=== PATIENT | female | born 1935 | race Caucasian/White ===

== ENCOUNTER → 2017-12-07 | Day surgery (SDC) | payer OTHER ==
[2017-12-04 13:20] LABS: BASOPHILS # (AUTO) 0.1 (0.0-0.1); BASOPHILS % 1.2 % (0.0-1.0); EOSINOPHILS # (AUTO) 0.2 (0.0-0.4); EOSINOPHILS % 2.2 % (0.0-6.0); HEMATOCRIT 35.8 % (34.2-44.1); HEMOGLOBIN 11.2 g/dL (12.0-16.0); LYMPHOCYTES % 24.3 % (18.0-39.1); MEAN CORPUSCULAR HGB CONC 31.3 g/dL (31-35); MEAN CORPUSCULAR VOLUME 89.5 fL (81-99); MONOCYTES # (AUTO) 1.2 (0.2-0.8); MONOCYTES % 14.4 % (4.4-11.3); NEUTROPHILS # (AUTO) 4.5 (2.1-6.9); NEUTROPHILS % 55.7 % (38.7-80.0); PLATELET COUNT 278 x10e3/uL (140-360); RED CELL DISTRIBUTION WIDTH 20.1 % (11.7-14.4)
[2017-12-04 13:38] LABS: ANION GAP 15.1 mmol/L (8-16); CALCIUM 9.3 mg/dL (8.4-10.2); CREATININE, SERUM 1.02 mg/dL (0.57-1.11); POTASSIUM 5.1 mmol/L (3.5-5.1)
--- NOTE | 2017-12-04 14:26 | Diagnostic Imaging Report ---
PROCEDURE: Frontal and lateral views of the chest. COMPARISON: 08/29/17 INDICATIONS: CHEST X-RAY FOR BREAST SURGERY FINDINGS: Lines/tubes: Stable right chest wall dual lead cardiac device in place. Lungs: The lungs are well inflated and clear. There is no evidence of pneumonia or pulmonary edema. Pleura: There is no pleural effusion or pneumothorax. Heart and mediastinum: The heart and the mediastinum are normal. Bones: Generalized demineralization. Exaggerated kyphosis of the thoracic spine. No acute bony abnormality. IMPRESSION: 1. No acute cardiopulmonary disease. Dictated by: Mendez Bean M.D. on 12/04/2017 at 14:35 Electronically approved by: Mendez Bean M.D. on 12/04/2017 at 14:35
[~2017-12-07] MED LIST: ALENDRONATE SOD10 MG PO; AMIODARONE HCL200 MG PO; ATENOLOL100 MG PO; BACITRACIN 50,000 UNIT VIAL ONE; CEFAZOLIN SOD 1 GM VIAL ONE; CEFUROXIME250 MG PO; DEXAMETHASONE SOD PHOS INJ 4 MG/ML VIAL ONE; ENALAPRIL MALEA20 MG PO; FENTANYL CITRATE/PF 100MCG/2 ML INJ ONE; FOSAMAX70 MG PO; GABAPENTIN100 MG; HYDRALAZINE HCL25 MG PO; LEFLUNOMIDE20 MG PO; LIDOCAINE HCL 2% LOCAL INJ 5 ML SDV VIAL INJ ONE; METOPROLOL SUCC50 MG PO; MORPHINE SULFATE 2 MG/ML SYR ONE; MUPIROCIN 2% OINT 22 GM TUBE ONE; ONDANSETRON HCL INJ 2 MG/ML VIAL ONE; OXYBUTYNIN CHLOR5 MG PO; PRADAXA75 MG PO; PRAVASTATIN SOD40 MG PO; PROPOFOL IV EMULSION 10 MG/ML 20 ML VIAL ONE; SEVOFLURANE INHAL SOLN 250 ML PEN BTL ONE; SYNTHROID75 MCG PO; TRIAMTERENE-HCTZ1 EA PO; VALACYCLOVIR500 MG PO; WARFARIN SODIUM5 MG PEG
--- NOTE | 2017-12-07 14:07 | Operative Report ---
DATE OF PROCEDURE: December 07, 2017 PREOPERATIVE DIAGNOSES: 1. Acquired absence of left breast. 2. Status post-removal left breast implant. POSTOPERATIVE DIAGNOSES: 1. Acquired absence of left breast. 1. Status post-removal left breast implant. PROCEDURE PERFORMED: 1. Open capsulectomy left breast. 2. Delayed insertion of breast prosthesis for reconstruction. 3. Allograft trunk. ANESTHESIA: General. HISTORY: The patient is an 82-year-old female who had augmentation for reconstructive purposes approximately 20 to 25 years ago. In 2017 she underwent placement of a permanent pacemaker by the cardiology service where the implant was accidently punctured. Subsequently the left chest became infected, and there is need to remove the implant that was punctured in an urgent fashion. The infection was resolved, and the patient now wishes to have definitive reconstructive procedures to achieve symmetry and restore the left breast. The risks, benefits and alternatives of treatment were discussed with the patient, and she has signed the [place] consent form. DETAILS OF PROCEDURE: Patient was marked preoperatively in the holding area. She was brought to the operating theater, and after the induction of adequate general anesthesia, she was prepped and draped in a supine position and a time out was performed. The procedure was begun by incising through the inframammary incision initially utilized to place the implants and also to remove the implant secondarily. The incision was made through the skin and subcutaneous tissues. Bleeding was controlled using electrocautery. There was a dense amount of scarring from both the previous surgeries as well as from the previous infection. In the subcutaneous space, the incision was deepened until the ribs were identified. Using the costal plane, the dissection continued cranially until the markedly attenuated and scarred pectoralis major muscle was identified. The scar tissue adhering the pectoralis major muscle to the chest wall was excised, and then the pectoralis major muscle was dissected on its anterior surface from the skin and subcutaneous tissue in order to allow it to be released and become mobile. Hemostasis was achieved with the electrocautery. Once the subpectoral space had been developed and the inferior and medial border and lateral border of the pectoralis major muscle identified, a trial of sizers was placed into the left chest. The left chest accepted a 325 mL sizer without significant tension on the soft tissues. The sizer was then removed, and the wound was irrigated with antibiotic-containing solution. The allograft dermis was prepared per management rep's specifications, and it was sutured to the inframammary fold using 2-0 PDS in an interrupted horizontal mattress fashion. Medially the allograft was sutured to the border of the pectoralis major muscle along the sternal edge. At this point, a 325 mL implant was prepared per management rep's specification. The lot number and serial number are located within the patient's chart. The implant was then placed in the subpectoral space, and the allograft was placed over the implant and care was taken to ensure that the implant resided as inferiorly and medially as possible. At this point, the superior border of the allograft was sutured to the inferior border of the pectoralis major muscle, also utilizing 2-0 PDS in an interrupted horizontal mattress fashion. Laterally the allograft was sutured to the lateral chest wall to prevent the implant from migrating laterally and cranially. This was also performed with 2-0 PDS sutures. At this point, a 15-Bulgar[place] Star-Ball drain was placed percutaneously through the axilla and sutured to the skin using 3-0 nylon suture. The skin was then approximated with 3-0 Monocryl in an interrupted buried fashion, followed by a 4-0 Monocryl running subcuticular stitch. Steri-Strips were applied to the incision. Sterile dressings were applied around the drain exit site as well as the incision. The patient tolerated the procedure well, and the estimated blood loss of the procedure was approximately 100 to 125 mL. She was returned to the recovery room in satisfactory condition and discharged with a postoperative instruction sheet as well as a followup appointment. Job#: [id number] ANDI
== END | disposition home or self-care (01) ==
LOC: OR 05:14
PROVIDERS: ATTEND Plastic Surgery
DX: Z90.12 Acquired absence of left breast and nipple (principal); E03.9 Hypothyroidism, unspecified; I10 Essential (primary) hypertension; I48.91 Unspecified atrial fibrillation; Z01.812 Encounter for preprocedural laboratory examination; Z01.818 Encounter for other preprocedural examination; Z95.0 Presence of cardiac pacemaker
CPT/HCPCS: 19342; 19371; 36415; 71046; 80048; 85025; C9358; J0690; J1100; J2001; J2270; J2405

== ENCOUNTER 2018-12-19 15:50 | Emergency (ER) | payer MEDICARE, OTHER ==
[~2018-12-19] VITALS: Ht 162.6 cm; Wt 50.3 kg
[~2018-12-19 15:50] MED LIST changes: -BACITRACIN 50,000 UNIT VIAL ONE; -CEFAZOLIN SOD 1 GM VIAL ONE; -DEXAMETHASONE SOD PHOS INJ 4 MG/ML VIAL ONE; -FENTANYL CITRATE/PF 100MCG/2 ML INJ ONE; -LIDOCAINE HCL 2% LOCAL INJ 5 ML SDV VIAL INJ ONE; -MORPHINE SULFATE 2 MG/ML SYR ONE; -MUPIROCIN 2% OINT 22 GM TUBE ONE; -ONDANSETRON HCL INJ 2 MG/ML VIAL ONE; -PROPOFOL IV EMULSION 10 MG/ML 20 ML VIAL ONE; -SEVOFLURANE INHAL SOLN 250 ML PEN BTL ONE
--- OUTSIDE RECORDS SUMMARY | 2018-12-19 15:54 | XMS REPORT ---
[facility] Address Unknown Phone Unavailable Care Team Providers Care Account Manager Employee Benefits Name Role Phone PAULINA BUITRAGO Unavailable Unavailable GERALDO PARIS Unavailable Unavailable Payers Payer Name Policy Type Policy Number Effective Date Expiration Date Problems This patient has no known problems. Allergies, Adverse Reactions, Alerts Allergy Name Allergy Type Status Severity Reaction(s) Onset Date Inactive Date Treating Clinician Comments No Known Allergies DA Active U 2018-10-17 00:00:00 No Known Allergies DA Active U 2018-01-05 00:00:00 Medications This patient has no known medications. Results Test Description Test Time Test Comments Text Results Atomic Results Result Comments CHEST 2 VIEWS [facility] [address] [address] Patient Name: JAN SANCHEZ MR #: [id number] : 1935 Age/Sex: 82/F Req #: [id number] Adm Physician: Ordered by: PAULINA BUITRAGO MD Report #: [id number] Location: OR Room/Bed: Procedure: [id number] DX/CHEST 2 VIEWS Exam Date: 12/04/17 Exam Time: 1320 REPORT STATUS: Signed PROCEDURE: Frontal and lateral views of the chest. COMPARISON: 08/29/17 INDICATIONS: CHEST X-RAY FOR BREAST SURGERY FINDINGS: Lines/tubes: Stable right chest wall dual lead cardiac device in place. Lungs: The lungs are well inflated and clear. There is no evidence of pneumonia or pulmonary edema. Pleura: There is no pleural effusion or pneumothorax. Heart and mediastinum: The heart and the mediastinum are normal. Bones: Generalized demineralization. Exaggerated kyphosis of the thoracic spine. No acute bony abnormality. IMPRESSION: 1. No acute cardiopulmonary disease. Dictated by: Mendez Vieira M.D. on 12/04/2017 at 14:35 Electronically approved by: Mendez Vieira M.D. on 12/04/2017 at 14:35 Dictated By: MENDEZ VIEIRA MD [employer] Signed By: MENDEZ VIEIRA MD on 12/04/17 1435 Transcribed By: ESTUARDO on 12/04/17 1435 COPY TO: PAULINA BUITRAGO MD CHEST XRAY LINE PLACEMENT [place] [address] Patient Name: JAN SANCHEZ MR #: [id number] : 1935 Age/Sex: 82/F Req #: [id number] Adm Physician: GERALDO PARIS MD Ordered by: DAYANARA ALVARENGA MD Report #: [id number] Location: MED/SURG3 Room/Bed: [facility] Procedure: [id number] DX/CHEST XRAY LINE PLACEMENT Exam Date: 08/29/17 Exam Time: 2200 REPORT STATUS: Signed CHEST XRAY LINE PLACEMENT, 08/29/2017 9:55 PM Technique: CHEST XRAY LINE PLACEMENT Comparison: None available. Clinical history: PICC line placement Findings: See Impression Impression: 1. Lines/Tubes: Left PICC terminates at the cavoatrial junction. Right chest wall dual-lead pacer with leads projecting over the right atrium and ventricle. 2. Borderline heart size. 3. Central vascular congestion without overt edema. 4. No pleural effusion or pneumothorax. Signed by: Dr Luís Lin MD on 08/29/2017 10:35 PM Dictated By: LUÍS LIN MD 34 Transcribed By: LINDY on 08/29/172234 COPY TO: DAYANARA ALVARENGA MD
--- OUTSIDE RECORDS SUMMARY | 2018-12-19 15:54 | XMS REPORT | Summary of Care ---
Author Author ROSANNA Demarco, STEVE Organization Unknown Address Unknown Phone Unavailable Care Team Providers Care Produce Production Team Member Name Role Phone WASHINGTON P.A., ELIZABETH Unavailable Unavailable ROSANNA Demarco, STEVE Unavailable Unavailable CARLENE Camacho, LUIGI Unavailable Unavailable ABBY D.O., DULCE-YENNI Unavailable Unavailable JAMAAL Camacho, TAMIE Unavailable Unavailable ABBY DO UT, DULCE-YENNI Unavailable Unavailable ASHLEE Camacho, MATTHEW Unavailable Unavailable Carlene BENAVIDES, Luigi Unavailable Unavailable JAMAAL BENAVIDES UT, TAMIE Unavailable Unavailable Unavailable Unavailable Functional Status Name Dates Details Functional status health issues are not documented Status: Name Dates Details Cognitive status health issues are not documented Status: Problems Name Dates Details 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, B00.9) Status: Active Transient organic psychotic condition, 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, 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 Arthritis (716.90, M19.90) Status: Active Fatigue (780.79, R53.83) Status: Active Colonoscopy (Fiberoptic) Screening Status: Active Influenza vaccine needed (V04.81, Z23) Status: Active Screening for malignant neoplasm of breast (V76.10, Z12.31) Status: Active Yeast infection involving the vagina and surrounding area (112.1, B37.3) Status: Active Increased frequency of urination (788.41, R35.0) Status: Active Viral syndrome (079.99, B34.9) Status: Active Constipation (564.00, K59.00) Status: Active Colon cancer screening (V76.51, Z12.11) Status: Active Bleeding external hemorrhoids (455.5, K64.4) Status: Active Advanced directives, counseling/discussion (V65.49, Z71.89) Status: Active Anemia (285.9, D64.9) Status: Active Back pain, sacroiliac (724.6, M53.3) Status: Active Vitamin B12 deficiency (266.2, E53.8) Status: Active Vitamin D deficiency (268.9, E55.9) Status: Active Need for pneumococcal vaccination (V03.82, Z23) Status: Active Acute upper respiratory infection (465.9, J06.9) Status: Active Vasovagal syncope (780.2, R55) Status: Active Syncope (780.2, R55) Status: Active Screening for osteoporosis (V82.81, Z13.820) Status: Active Pain, lower extremity (729.5, M79.606) Status: Active Cataract, bilateral (366.9, H26.9) Status: Active 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81, Z23) Status: Active Dysphagia (787.20, R13.10) Status: Active Pacemaker (V45.01, Z95.0) Status: Active Hyperlipidemia (272.4, E78.5) Status: Active GERD (gastroesophageal reflux disease) (530.81, K21.9) Status: Active Malignant neoplasm of esophagus (150.9, C15.9) Status: Active Fever and chills (780.60, R50.9) Status: Active Acute maxillary sinusitis, recurrence not specified (461.0, J01.00) Status: Active Urine frequency (788.41, R35.0) Status: Active Right hip pain (719.45, M25.551) Status: Active Skin lesion (709.9, L98.9) Status: Active Osteoporosis (733.00, M81.0) Status: Active Boil, buttock (680.5, L02.32) Status: Active 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 Active Multi-Vitamin Oral Tablet TAKE 2 TABLET DAILY * Refills: 0 Active Gabapentin 100 MG Oral Capsule TAKE 2 CAPSULE BEDTIME * Refills: 0 Active Pravastatin Sodium 40 MG Oral Tablet TAKE 1 TABLET BY MOUTH ONCE DAILY AT BEDTIME * Quantity: 90 Refills: 1 LUIGI CONCEPCION M.D. * Start : 29-Oct-2018 Active Triamterene-HCTZ 37.5-25 MG Oral Tablet TAKE 1 TABLET DAILY DIRECTED. * Refills: 0 Active Metoprolol Succinate ER 200 MG Oral Tablet Extended Release 24 Hour TAKE ONE TABLET BY MOUTH ONCE DAILY * Quantity: 90 Refills: 1 LUIGI CONCEPCION M.D. * Start : 20-Dec-2017 Active HydrALAZINE HCl - 50 MG Oral Tablet TAKE 1 TABLET BY MOUTH THREE TIMES DAILY * Quantity: 90 Refills: 5 LUIGI CONCEPCION M.D. * Start : 03-Dec-2018 Active Oxybutynin Chloride 5 MG Oral Tablet TAKE 1 TABLET BY MOUTH DAILY * Quantity: 30 Refills: 5 WAYNE MORA D.O. * Start : 01-Aug-2017 Active Warfarin Sodium 5 MG Oral Tablet TAKE 1 TABLET DAILY. * Quantity: 30 Refills: 0 LUIGI CONCEPCION M.D. * Start : 21-Mar-2018 Active Mupirocin Calcium 2 % External Cream APPLY THIN LAYER TO AFFECTED AREA(S) 3 TIMES DAILY. * Quantity: 1 Refills: 1 ELIZABETH FRAGOSO * Start : 16-Nov-2018 Active 30 GM Tube Omeprazole 40 MG Oral Capsule Delayed Release TAKE ONE CAPSULE BY MOUTH DAILY-DR Sargent * Quantity: 30 Refills: 0 TAMIE HINTON M.D. * Start : 23-Nov-2018 Active Famotidine 40 MG Oral Tablet TAKE 1 TABLET DAILY. * Refills: 0 * Start : 05-Dec-2018 Active Biotin 1000 MCG Oral Tablet TAKE 1 TABLET DAILY PRN * Refills: 0 * Start : 05-Dec-2018 Active Hydrocodone-Acetaminophen 10-325 MG Oral Tablet TAKE 1 TABLET EVERY 6 HOURS * Refills: 0 * Start : 05-Dec-2018 Active Allergies and Adverse Reactions Name Dates Details Eliquis TABS (Allergy) Onset: 10-Oct-2017 Reaction: Itching Status: Active Past Medical History Name Dates Details History of Advanced directives, counseling/discussion (V65.49, Z71.89) Status: Resolved History of 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, B00.9) Status: Resolved History of hypothyroidism (V12.29, Z86.39) Status: Resolved History of Multiparity (V61.5, Z64.1) Status: Resolved History of Osteoarthritis (V13.4) Status: Resolved History of Reported A Previous Heart Murmur Status: Resolved History of Rheumatoid arthritis with negative rheumatoid factor, involving unspecified site (714.0, M06.00) Status: Resolved 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, 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) Status: Resolved Personal history of urinary tract infection (V13.02, Z87.440) Status: Resolved Procedures Procedure Dates Details [QL] TSH, 3RD GENERATION Date: 28-Nov-2018 [QL] PROTHROMBIN TIME-INR Date: 05-Dec-2018 [QLH] PROTHROMBIN TIME-INR Date: 05-Dec-2018 History of Hysterectomy Completed History of Breast Surgery Mastectomy Completed History of Breast Reconstruction With Implant Prosthesis Immediate Completed Immunization Name Dates Details Fluarix Quadrivalent 0.5 ML SUSP Lot #: [id number] on: 13-Aug-2014 Fluzone Quadrivalent 0.5 ML Intramuscular Suspension Lot #: [id number] on: 02-Dec-2015 Fluzone Quadrivalent 0.5 ML Intramuscular Suspension Prefilled Syringe Lot #: [id number] on: 31-Aug-2016 DTaP on: 10-Nov-2016 Fluzone High-Dose 0.5 ML Intramuscular Suspension Prefilled Syringe Lot #: [id number] on: 16-Nov-2017 Fluzone Quadrivalent 0.5 ML Intramuscular Suspension Lot #: [id number] on: 14-Aug-2018 Influenza Comments: Approx 21Sep2013 Pneumococcal polysaccharide vaccine, 23 valent Comments: UNKNOWN DATE Family History Name Dates Details Family history of Hypertension (V17.49) Status: Active Family history of Alzheimer Disease Status: Active Family history of hyperlipidemia (V18.19, Z83.438) Status: Active Social History Name Dates Details - Status: Name Dates Details Never smoker Never smoker Vital Signs Date Test Result Details [id number] Physical Findings 8 Status: Comments: PHQ-9 Adult Depression Screening [id number] BP Systolic 107 mm[Hg] Status: Comments: Location: LUE; Position: Sitting BP Diastolic 58 mm[Hg] Status: Comments: Location: LUE; Position: Sitting Height 64 in Status: Weight 108 lb Status: Body Mass Index Calculated 18.54 kg/m2 Status: Body Surface Area Calculated 1.51 m2 Status: Temperature 98.9 f Status: Comments: Method: Temporal Respiration Rate 16 /min Status: Heart Rate 96 /min Status: Physical Findings 0 Status: Comments: Alcohol Screen - How many times in the past yr have you had 5 (for M) or 4 (for F) or 4 (for all > 65yrs) or more drinks in a day? [id number] BP Systolic 124 mm[Hg] Status: Comments: Location: LUE; Position: Sitting BP Diastolic 70 mm[Hg] Status: Comments: Location: LUE; Position: Sitting Height 64 in Status: Weight 115 lb Status: Body Mass Index Calculated 19.74 kg/m2 Status: Body Surface Area Calculated 1.55 m2 Status: Temperature 98.5 f Status: Comments: Method: Temporal Respiration Rate 16 /min Status: Heart Rate 80 /min Status: Results Date Description Value Details [id number] [QLH] PROTHROMBIN TIME-INR Comments: Reference Range 0.9-1.1Moderate-intensity Warfarin Therapy 2.0-3.0Higher-intensity Warfarin Therapy 3.0-4.0 REPORT COMMENT:FASTING:NO INR 1.0 (Normal) Comments: Reference Range 0.9-1.1Moderate-intensity Warfarin Therapy 2.0-3.0Higher-intensity Warfarin Therapy 3.0-4.0 PT 10.8 {sec} (Normal) Range: 9.0-11.5 Comments: For more information on this test, go to:http://education.[employer]/faq/SGK117 [id number] [[facility]] CMP W/EGFR GLUCOSE 114 mg/dl (Normal) Range: 65-139 Comments: Non-fasting reference interval UREA NITROGEN (BUN) 21 mg/dl (Normal) Range: 7-25 CREATININE 0.92 mg/dl (Above high threshold) Range: 0.60-0.88 Comments: For patients >49 years of age, the reference limitfor Creatinine is approximately 13% higher for peopleidentified as -Luxembourger. eGFR NON- 58 {ML/MIN/1.7} (Below low threshold) Range: > OR=60 eGFR 67 {ML/MIN/1.7} (Normal) Range: > OR=60 BUN/CREATININE RATIO 23 {CALC} (Above high threshold) Range: 6-22 SODIUM 141 mmol/L (Normal) Range: 135-146 POTASSIUM 4.2 mmol/L (Normal) Range: 3.5-5.3 CHLORIDE 102 mmol/L (Normal) Range: 98-110 CARBON DIOXIDE 30 mmol/L (Normal) Range: 20-32 CALCIUM 9.2 mg/dl (Normal) Range: 8.6-10.4 PROTEIN, TOTAL 6.0 g/dl (Below low threshold) Range: 6.1-8.1 ALBUMIN 3.8 g/dl (Normal) Range: 3.6-5.1 GLOBULIN 2.2 {G/DL__CALC} (Normal) Range: 1.9-3.7 ALBUMIN/GLOBULIN RATIO 1.7 {CALC} (Normal) Range: 1.0-2.5 BILIRUBIN, TOTAL 0.9 mg/dl (Normal) Range: 0.2-1.2 ALKALINE PHSPHATASE 63 u/l (Normal) Range: 33-130 AST 15 u/l (Normal) Range: 10-35 ALT 10 u/l (Normal) Range: 6-29 [id number] [[facility]] CBC (INCLUDES DIFF/PLT) WHITE BLOOD CELL COUNT 10.5 {Thousand/u} (Normal) Range: 3.8-10.8 RED BLOOD CELL COUNT 3.73 {Million/uL} (Below low threshold) Range: 3.80-5.10 HEMAGLOBIN 11.1 g/dl (Below low threshold) Range: 11.7-15.5 HEMATOCRIT 33.8 % (Below low threshold) Range: 35.0-45.0 MCV 90.6 fL (Normal) Range: 80.0-100.0 MCH 29.8 pg (Normal) Range: 27.0-33.0 MCHC 32.8 g/dl (Normal) Range: 32.0-36.0 RDW 16.9 % (Above high threshold) Range: 11.0-15.0 PLATELET COUNT 378 {Thousand/u} (Normal) Range: 140-400 MPV 9.9 fL (Normal) Range: 7.5-12.5 ABSOLUTE NEUTROPHILS 8432 {cells/uL} (Above high threshold) Range: 0404-3242 ABSOLUTE LYMPHOCYTES 861 {cells/uL} (Normal) Range: 850-3900 ABSOLUTE MONOCYTES 1061 {cells/uL} (Above high threshold) Range: 200-950 ABSOLUTE EOSINOPHILS 63 {cells/uL} (Normal) Range: 15-500 ABSOLUTE BASOPHILS 84 {cells/uL} (Normal) Range: 0-200 NEUTROPHILS 80.3 % (Normal) LYMPHOCYTES 8.2 % (Normal) MONOCYTES 10.1 % (Normal) EOSINOPHILS 0.6 % (Normal) BASOPHILS 0.8 % (Normal) COMMENT(S) Comments: Review of peripheral smear confirmsautomated results. [id number] [[facility]] TSH, 3RD GENERATION Comments: REPORT COMMENT:FASTING:NO TSH 3.23 {MIU/L} (Normal) Range: 0.40-4.50 [id number] [[facility]] PROTHROMBIN TIME-INR Comments: Reference Range 0.9-1.1Moderate-intensity Warfarin Therapy 2.0-3.0Higher-intensity Warfarin Therapy 3.0-4.0 REPORT COMMENT:FASTING:NO INR 1.1 (Normal) Comments: Reference Range 0.9-1.1Moderate-intensity Warfarin Therapy 2.0-3.0Higher-intensity Warfarin Therapy 3.0-4.0 PT 11.0 {sec} (Normal) Range: 9.0-11.5 Comments: For more information on this test, go to:http://[employer]/faq/AWF650 09-[id number]:35 [[facility]] PROTHROMBIN TIME-INR Comments: Reference Range 0.9-1.1Moderate-intensity Warfarin Therapy 2.0-3.0Higher-intensity Warfarin Therapy 3.0-4.0 INR 1.3 (Above high threshold) Comments: Reference Range 0.9-1.1Moderate-intensity Warfarin Therapy 2.0-3.0Higher-intensity Warfarin Therapy 3.0-4.0 PT 13.1 {sec} (Above high threshold) Range: 9.0-11.5 Comments: For more information on this test, go to:http://[email or web address]/faq/OMF990 [id number] [[facility]] PROTHROMBIN TIME-INR Comments: Reference Range 0.9-1.1Moderate-intensity Warfarin Therapy 2.0-3.0Higher-intensity Warfarin Therapy 3.0-4.0 INR 1.5 (Above high threshold) Comments: Reference Range 0.9-1.1Moderate-intensity Warfarin Therapy 2.0-3.0Higher-intensity Warfarin Therapy 3.0-4.0 PT 15.7 {sec} (Above high threshold) Range: 9.0-11.5 Comments: For more information on this test, go to:http://[employer]/faq/LNQ692 20-[id number]:57 [[facility]] PROTHROMBIN TIME-INR Comments: Reference Range 0.9-1.1Moderate-intensity Warfarin Therapy 2.0-3.0Higher-intensity Warfarin Therapy 3.0-4.0 REPORT COMMENT:FASTING:NO INR 1.7 (Above high threshold) Comments: Reference Range 0.9-1.1Moderate-intensity Warfarin Therapy 2.0-3.0Higher-intensity Warfarin Therapy 3.0-4.0 PT 16.7 {sec} (Above high threshold) Range: 9.0-11.5 Comments: For more information on this test, go to:http://[employer]/faq/EVF327 [id number] [O] Urine Dipstick (In Office) Glucose NORMAL (Normal) LEUKOCYTES TRACE NITRITE NEGATIVE (Normal) UROBILINOGEN NORMAL (Normal) PROTEIN TRACE pH 5 (Normal) URINE BLOOD NEGATIVE (Normal) SPECIFIC GRAVITY 1.020 (Normal) KETONES NEGATIVE (Normal) BILIRUBIN NEGATIVE (Normal) COLOR URINE YELLOW (Normal) Plan of Care Name Dates Details Planned Observations Planned Goals not documented Planned Encounters Appointment; JACQUES GATICA On: 15-Jan-2019 10:00 Appointment; LUIGI CONCEPCION M.D. On: 15-Jan-2019 11:00 Appointment; TAMIE HINTON M.D. On: 22-Feb-2019 10:00 Interventions Provided Labs/Procedures/Imaging* [O] Urine Dipstick (In Office); Done: 19 Dec 2018 Instructions Name Dates Details Instructions not documented Encounters Appointment; BRUNO CABRERA Encounter Diagnosis: Problem not documented On: 27-Dec-2016 10:45 Appointment; BRUNO CABRERA Encounter Diagnosis: Problem not documented On: 24-Jan-2017 10:30 Appointment; BRUNO CABRERA Encounter Diagnosis: Problem not documented On: 07-Mar-2017 11:30 Appointment; LUIGI CONCEPCION M.D. Encounter Diagnosis: Problem not documented On: 17-Mar-2017 11:00 Appointment; BRUNO CABRERA Encounter Diagnosis: Problem not documented On: 28-Mar-2017 9:15 Appointment; LUIGI CONCEPCION M.D. Encounter Diagnosis: Problem not documented On: 12-Apr-2017 14:40 Appointment; BRUNO CABRERA Encounter Diagnosis: Problem not documented On: 18-Apr-2017 10:30 Appointment; WAYNE MORA D.O. Encounter Diagnosis: Problem not documented On: 20-Apr-2017 11:00 Appointment; BRUNO CABRERA Encounter Diagnosis: Problem not documented On: 25-Apr-2017 10:15 Appointment; XIOMARAPOURJOLIEAYAR Encounter Diagnosis: Problem not documented On: 02-May-2017 10:00 Appointment; HEMATPOURJOLIEAYAR Encounter Diagnosis: Problem not documented On: 16-May-2017 9:30 Appointment; HEMATPOUR, KHASHAYAR Encounter Diagnosis: Problem not documented On: 25-May-2017 11:00 Appointment; LUIGI CONCEPCION M.D. Encounter Diagnosis: Problem not documented On: 14-Jun-2017 16:20 Appointment; XIOMARAPOJOLIE SANCHEZAYAR Encounter Diagnosis: Problem not documented On: 20-Jun-2017 10:45 Appointment; LUIGI CONCEPCION M.D. Encounter Diagnosis: Problem not documented On: 30-Jun-2017 12:40 Appointment; XIOMARAPOUR, JOLIEAYAR Encounter Diagnosis: Problem not documented On: 11-Jul-2017 11:15 Appointment; WAYNE MORA D.O. Encounter Diagnosis: Problem not documented On: 31-Jul-2017 13:15 Appointment; XIOMARAPOALE SANCHEZR Encounter Diagnosis: Problem not documented On: 08-Aug-2017 11:00 Appointment; XIOMARAPOALE SANCHEZR Encounter Diagnosis: Problem not documented On: 22-Aug-2017 10:00 Appointment; WAYNE MORA D.O. Encounter Diagnosis: Problem not documented On: 18-Sep-2017 12:00 Appointment; LUIGI CONCEPCION M.D. Encounter Diagnosis: Problem not documented On: 03-Oct-2017 10:20 Appointment; WAYNE MORA D.O. Encounter Diagnosis: Problem not documented On: 16-Nov-2017 12:15 Appointment; WAYNE MORA D.O. Encounter Diagnosis: Problem not documented On: 11-Jan-2018 12:15 Appointment; LUIGI CONCEPCION M.D. Encounter Diagnosis: Problem not documented On: 26-Jan-2018 9:40 Appointment; WAYNE MORA D.O. Encounter Diagnosis: Problem not documented On: 29-Jan-2018 15:45 Appointment; VICKY RAJAN M.D. Encounter Diagnosis: Problem not documented On: 07-Feb-2018 11:15 Appointment; LUIGI CONCEPCION M.D. Encounter Diagnosis: Problem not documented On: 03-Apr-2018 11:00 Appointment; SUZY HARTMAN Encounter Diagnosis: Problem not documented On: 03-May-2018 13:45 Appointment; BRUNO CABRERA Encounter Diagnosis: Problem not documented On: 08-May-2018 10:30 Appointment; XIOMARABRUNO HUBBARD Encounter Diagnosis: Problem not documented On: 19-Jun-2018 10:45 Appointment; LUIGI CONCEPCION M.D. Encounter Diagnosis: Problem not documented On: 17-Jul-2018 12:40 Appointment; ISMAEL-, ECHO Encounter Diagnosis: Problem not documented On: 26-Jul-2018 10:00 Appointment; LUIGI CONCEPCION M.D. Encounter Diagnosis: Problem not documented On: 27-Jul-2018 10:40 Appointment; WAYNE MORA D.O. Encounter Diagnosis: Problem not documented On: 14-Aug-2018 9:15 Appointment; LUIGI CONCEPCION M.D. Encounter Diagnosis: Problem not documented On: 28-Aug-2018 11:20 Appointment; TAMIE HINTON M.D. Encounter Diagnosis: Problem not documented On: 15-Oct-2018 15:00 Appointment; TAMIE HINTON M.D. Encounter Diagnosis: Problem not documented On: 23-Oct-2018 9:15 Appointment; ELIZABETH WASHINGTON P.A. Encounter Diagnosis: Problem not documented On: 16-Nov-2018 7:30 Appointment; TAMIE HINTON M.D. Encounter Diagnosis: Problem not documented On: 23-Nov-2018 10:00 Appointment; TAMIE HINTON M.D. Encounter Diagnosis: Problem not documented On: 30-Nov-2018 9:30 Appointment; EN, NURSING Encounter Diagnosis: Problem not documented On: 05-Dec-2018 9:00 Appointment; STEVE MARTE NP Encounter Diagnosis: Problem not documented On: 19-Dec-2018 11:00
[2018-12-19] MEDS ORDERED: SODIUM CHLORIDE 0.9% 1000ML 1,000 ML IV STA (16:12)
[2018-12-19] MEDS ORDERED: DIATRIZOATE MEGL/DIATRIZOA SOD 30 ML BTL PO ONE (16:17)
[2018-12-19] MEDS ORDERED: ONDANSETRON HCL INJ 2MG/ML 2ML 2 MG/ML VIAL IV ONE (16:30)
[2018-12-19] MEDS ORDERED: MORPHINE SULFATE INJ 4 MG/ML INJ 1ML IV ONE (16:30)
[2018-12-19 17:24] LABS: BASOPHILS % 0.5 % (0.0-1.0); EOSINOPHILS % 0.5 % (0.0-6.0); HEMATOCRIT 34.3 % (34.2-44.1); HEMOGLOBIN 11.1 g/dL (12.0-16.0); LYMPHOCYTES # (AUTO) 0.3 (1.0-3.2); LYMPHOCYTES % 3.1 % (18.0-39.1); MEAN CORPUSCULAR HEMOGLOBIN 29.5 pg (28-32); MEAN CORPUSCULAR HGB CONC 32.4 g/dL (31-35); MEAN CORPUSCULAR VOLUME 91.2 fL (81-99); MONOCYTES # (AUTO) 0.7 (0.2-0.8); MONOCYTES % 8.2 % (4.4-11.3); NEUTROPHILS # (AUTO) 6.8 (2.1-6.9); NEUTROPHILS % 85.2 % (38.7-80.0); PLATELET COUNT 334 x10e3/uL (140-360); RED BLOOD COUNT 3.76 x10e6/uL (3.6-5.1); RED CELL DISTRIBUTION WIDTH 17.6 % (11.7-14.4)
[2018-12-19 17:30] LABS: BILIRUBIN,URINE NEGATIVE (NEGATIVE); CLARITY,URINE CLEAR (CLEAR); COLOR,URINE YELLOW (YELLOW); KETONES,URINE NEGATIVE (NEGATIVE); LEUKOCYTE ESTERASE ,URINE NEGATIVE (NEGATIVE); NITRITE,URINE NEGATIVE (NEGATIVE); PROTEIN,URINE DIPSTICK NEGATIVE (NEGATIVE); URINE UROBILINOGEN 0.2 mg/dL (0.2 - 1)
[2018-12-19 17:39] LABS: AMORPHOUS SEDIMENT,URINE FEW (FEW); BACTERIA,URINE MODERATE /HPF; EPITHELIAL CELLS,URINE MODERATE /LPF; TRANSITIONAL EPI CELLS,URINE FEW
[2018-12-19 17:45] LABS: ALBUMIN 3.6 g/dL (3.5-5.0); ALBUMIN/GLOBULIN RATIO 1.1 (0.8-2.0); ANION GAP 16.4 mmol/L (8-16); CALCIUM 9.3 mg/dL (8.4-10.2); CREATININE, SERUM 0.93 mg/dL (0.57-1.11); POTASSIUM 3.4 mmol/L (3.5-5.1)
[2018-12-19] MEDS ORDERED: OMEPRAZOLE40 MG PO (18:05)
[2018-12-19] MEDS ORDERED: JANTOVEN5 MG PO (18:05)
[2018-12-19] MEDS ORDERED: HYDRALAZINE HCL50 MG PO (18:05)
--- NOTE | 2018-12-19 18:29 | Diagnostic Imaging Report ---
EXAM: CT Abdomen and Pelvis WITH contrast INDICATION: Pain/fall COMPARISON: None. TECHNIQUE: Abdomen and Pelvis was scanned utilizing a multidetector helical scanner after administration of IV contrast. Coronal and sagittal reformations were obtained. IV CONTRAST: 100 mL Isovue-370 COMPLICATIONS: None RADIATION DOSE: Total DLP:160 mGy*cm Estimated effective dose: (DLP x 0.015 x size factor) mSv CTDIvol has been reviewed. It is below the limits set by the Radiation Protocol Committee (RPC). Appropriate CT dose reduction techniques were utilized. FINDINGS: Abdomen: Lung Bases: Basilar atelectasis. Breast prostheses partially visualized. Probable biatrial enlargement with pacemaker wires partially visualized. Solid Organs: Renal cysts and To small to characterize hypodensities. Solid organs otherwise unremarkable. Upper GI Tract: No small bowel obstructive change. Vascularity: Vascular calcifications with no aortic aneurysm. Lymph Nodes: No definite adenopathy. Other: None. Pelvis: Bladder: Unremarkable. Other: Uterus absent. Colon: Moderate stool. Sigmoid diverticulosis. No definite acute findings. Bones: L5 pars defect with grade 2 anterolisthesis. Large Schmorl's node superior endplate L2. IMPRESSION: 1. No definite acute finding. 2. Moderate diverticulosis. 3. Other findings as above. Signed by: Dr. Darrick Alejo MD on 12/19/2018 6:26 PM
--- NOTE | 2018-12-19 19:10 | NUR ---
RECEIVED REPORT FROM SIDRA [facility]ROE DAY SHIFT NURSE.
[2018-12-19 20:00] LABS: EOSINOPHILS % (MANUAL) 2 % (0-7); LYMPHOCYTES % (MANUAL) 2 % (19-48); MONOCYTES % (MANUAL) 8 % (3.4-9.0); NEUTROPHILS % (MANUAL) 85 % (40-74)
[2018-12-19] MEDS ORDERED: METRONIDAZOLE 500 MG TAB PO ONE (20:00)
[2018-12-19 20:01] LABS: PLATELET MORPHOLOGY COMMENT NORMAL; RBC MORPHOLOGY COMMENT NORMAL
[2018-12-19 20:02] LABS: PLATELET ESTIMATE ADEQUATE
[2018-12-19 20:09] VITALS: BP 102/62
[2018-12-19] MEDS ORDERED: CIPROFLOXACIN 500 MG TAB PO ONE (20:15)
[2018-12-19] MEDS ORDERED: IOPAMIDOL 370 MG/ML 200 ML INFUS..BTL INJ ONE (22:53)
[2018-12-19] MEDS ORDERED: SODIUM CHLORIDE 0.9% 50ML 50 ML ONE (22:53)
== END 2018-12-19 20:18 | disposition home or self-care (01) ==
LOC: ER 15:50
DX: R10.32 Left lower quadrant pain (principal); R11.0 Nausea; K57.92 Diverticulitis of intestine, part unspecified, without perforation or abscess without bleeding
CPT/HCPCS: 36415; 74177; 80053; 81001; 82150; 83690; 85025; 99284; J2270; J2405; J7030; Q9967

== ENCOUNTER 2018-12-26 09:12 | Observation (INO) | payer MEDICARE ==
[~2018-12-26] VITALS: Ht 162.6 cm; Wt 51.7 kg
[~2018-12-26 09:12] MED LIST changes: +HYDRALAZINE HCL50 MG PO; +JANTOVEN5 MG PO; +OMEPRAZOLE40 MG PO
--- OUTSIDE RECORDS SUMMARY | 2018-12-26 09:15 | XMS REPORT | Summary of Care ---
Author Author CARLENE Camacho, LUIGI Galvez Unknown Address [facility] Phone Unavailable Care Team Providers Care Weeder Name Role Phone PADMINI Piña, ELIZABETH Unavailable Unavailable CARLENE Camacho, LUIGI Unavailable Unavailable ABBY D.O., DULCE-YENNI Unavailable Unavailable JAMAAL Camacho, TAMIE Unavailable Unavailable YEH DO [facility], DULCE-YENNI Unavailable Unavailable ASHLEE Camacho, [...] Seasonal allergic rhinitis (477.9, J30.2) Status: Active Sick sinus syndrome (427.81, I49.5) Status: Active Flu vaccine need (V04.81, Z23) Status: Active Dysphagia (787.20, R13.10) Status: Active Hyperlipidemia (272.4, E78.5) Status: Active [...] Active Boil, buttock (680.5, L02.32) Status: Active Rheumatoid arthritis with negative rheumatoid factor, involving unspecified site (714.0, M06.00) Status: Active Back pain, lumbosacral (724.2, M54.5) Status: Active Skin rash (782.1, R21) Status: Active Diverticulitis, colon (562.11, K57.32) Status: Active Abdominal pain (789.00, R10.9) Status: Active Nausea with vomiting (787.01, R11.2) Status: Active 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 R.N. Active Multi-Vitamin Oral Tablet TAKE 2 TABLET DAILY * Refills: 0 R.N. Active Gabapentin 100 MG Oral Capsule TAKE 2 CAPSULE BEDTIME * Refills: 0 R.N. Active Pravastatin Sodium 40 MG Oral Tablet TAKE 1 TABLET BY MOUTH ONCE DAILY AT BEDTIME * Quantity: 90 Refills: 1 LUIGI CONCEPCION M.D. * Start : 29-Oct-2018 Active Triamterene-HCTZ 37.5-25 MG Oral Tablet TAKE 1 TABLET DAILY DIRECTED. * Refills: 0 R.N. Active Metoprolol Succinate ER 200 MG Oral [...] TAKE 1 TABLET DAILY. * Refills: 0 R.N. * Start : 05-Dec-2018 Active Biotin 1000 MCG Oral Tablet TAKE 1 TABLET DAILY PRN * Refills: 0 R.N. * Start : 05-Dec-2018 Active Hydrocodone-Acetaminophen 10-325 MG Oral Tablet TAKE 1 TABLET EVERY 6 HOURS * Refills: 0 R.N. * Start : 05-Dec-2018 Active Ondansetron 8 MG Oral Tablet Disintegrating 1 Tablet Every 8 Hours PRN Nausea or Vomiting * Quantity: 30 Refills: 3 YEH D.O., WAYNE * Start : 22-Dec-2018 Active Allergies and Adverse Reactions Name Dates Details Kavin TABS (Allergy) Onset: 10-Oct-2017 Reaction: Itching Status: [...] Details [QL] TSH, 3RD GENERATION Date: 28-Nov-2018 [[facility]] PROTHROMBIN TIME-INR Date: 05-Dec-2018 [[facility]] PROTHROMBIN TIME-INR Date: 05-Dec-2018 History of Hysterectomy Completed History of Breast Surgery Mastectomy Completed History of Breast Reconstruction With Implant Prosthesis Immediate Completed Immunization Name Dates Details Fluarix Quadrivalent 0.5 ML SUSP Lot #: [id number] on: 13-Aug-2014 Fluzone Quadrivalent 0.5 ML Intramuscular Suspension Lot #: [id number] on: 02-Dec-2015 Fluzone Quadrivalent 0.5 ML Intramuscular Suspension Prefilled Syringe Lot #: [id number] on: 31-Aug-2016 DTaP on: 10-Nov-2016 Fluzone High-Dose 0.5 ML Intramuscular Suspension Prefilled Syringe Lot #: [id number] on: 16-Nov-2017 Fluzone Quadrivalent 0.5 ML Intramuscular Suspension Lot #: [id number] on: 14-Aug-2018 Influenza Comments: Approx 21Sep2013 Pneumococcal polysaccharide vaccine, 23 valent Comments: UNKNOWN DATE Family History Name Dates Details Family history of Hypertension (V17.49) Status: Active Family history of Alzheimer Disease Status: Active Family history of hyperlipidemia (V18.19, Z83.438) Status: Active Social History Name Dates Details - Status: Name Dates Details Never smoker Never smoker Vital Signs Date Test Result Details :31 BP Systolic 144 mm[Hg] Status: Comments: Location: [facility] [place]; Position: Sitting BP Diastolic 71 mm[Hg] Status: Comments: Location: [facility] [place]; Position: Sitting Heart Rate 80 /min Status: Comments: Location: L Radial; Quality: Normal :30 BP Systolic 145 mm[Hg] Status: Comments: Location: [facility] [place]; Position: Sitting BP Diastolic 74 mm[Hg] Status: Comments: Location: [facility] [place]; Position: Sitting Heart Rate 84 /min Status: Comments: Location: L Radial; Quality: Normal Height 64 in Status: Temperature 98.5 f Status: Comments: Method: Oral [id number] Physical Findings 8 Status: Comments: PHQ-9 Adult Depression Screening 13-Sbs-[id number]:43 BP Systolic 107 mm[Hg] Status: Comments: Location: LUE; Position: Sitting BP Diastolic 58 mm[Hg] Status: Comments: Location: [facility]; Position: Sitting Heart Rate 96 /min Status: Height 64 in Status: Temperature 98.9 f Status: Comments: Method: Temporal Weight 108 lb Status: Body Mass Index Calculated 18.54 kg/m2 Status: Body Surface Area Calculated 1.51 m2 Status: Respiration Rate 16 /min Status: Physical Findings 0 Status: Comments: Alcohol Screen - How many times in the past yr have you had 5 (for M) or 4 (for F) or 4 (for all > 65yrs) or more drinks in a day? Results Date Description Value Details [id number] [[facility]] CMP W/EGFR GLUCOSE 114 mg/dl (Normal) Range: 65-139 Comments: Non-fasting reference interval UREA NITROGEN (BUN) 21 mg/dl (Normal) Range: 7-25 CREATININE 0.92 mg/dl (Above high threshold) Range: 0.60-0.88 Comments: For patients >49 years of age, the reference limitfor Creatinine is approximately 13% higher for peopleidentified as -[place]. eGFR NON- 58 {ML/MIN/1.7} (Below low threshold) [...] 10-35 ALT 10 u/l (Normal) Range: 6-29 [id number]-[id number] [[facility]] CBC (INCLUDES DIFF/PLT) WHITE BLOOD CELL COUNT [...] NEUTROPHILS 8432 {cells/uL} (Above high threshold) Range: 5687-8633 ABSOLUTE LYMPHOCYTES 861 {cells/uL} (Normal) Range: 850-3900 ABSOLUTE MONOCYTES 1061 {cells/uL} (Above high threshold) Range: 200-950 ABSOLUTE EOSINOPHILS 63 {cells/uL} (Normal) Range: 15-500 ABSOLUTE BASOPHILS 84 {cells/uL} (Normal) Range: 0-200 NEUTROPHILS 80.3 % (Normal) LYMPHOCYTES 8.2 % (Normal) MONOCYTES 10.1 % (Normal) EOSINOPHILS 0.6 % (Normal) BASOPHILS 0.8 % (Normal) COMMENT(S) Comments: Review of peripheral smear confirmsautomated results. [id number] [[facility]] TSH, 3RD GENERATION Comments: REPORT COMMENT:FASTING:NO TSH 3.23 {MIU/L} (Normal) Range: 0.40-4.50 29-Gop-08810:35 [[facility]] PROTHROMBIN TIME-INR Comments: Reference Range 0.9-1.1Moderate-intensity Warfarin Therapy 2.0-3.0Higher-intensity Warfarin Therapy 3.0-4.0 REPORT COMMENT:FASTING:NO INR 1.1 (Normal) Comments: Reference Range 0.9-1.1Moderate-intensity Warfarin Therapy 2.0-3.0Higher-intensity Warfarin Therapy 3.0-4.0 PT 11.0 {sec} (Normal) Range: 9.0-11.5 Comments: For more information on this test, go to:[email or web address] 16-Tnd-32909:35 [[facility]] PROTHROMBIN TIME-INR Comments: Reference Range 0.9-1.1Moderate-intensity Warfarin Therapy 2.0-3.0Higher-intensity Warfarin Therapy 3.0-4.0 INR 1.3 (Above high threshold) Comments: Reference Range 0.9-1.1Moderate-intensity Warfarin Therapy 2.0-3.0Higher-intensity Warfarin Therapy 3.0-4.0 PT 13.1 {sec} (Above high threshold) Range: 9.0-11.5 Comments: For more information on this test, go to:[email or web address] 11-Oyq-33899:30 [[facility]] PROTHROMBIN TIME-INR Comments: Reference Range 0.9-1.1Moderate-intensity Warfarin Therapy 2.0-3.0Higher-intensity Warfarin Therapy 3.0-4.0 INR 1.5 (Above high threshold) Comments: Reference Range 0.9-1.1Moderate-intensity Warfarin Therapy 2.0-3.0Higher-intensity Warfarin Therapy 3.0-4.0 PT 15.7 {sec} (Above high threshold) Range: 9.0-11.5 Comments: For more information on this test, go to:[email or web address] 36-Opb-[id number]:57 [[facility]] PROTHROMBIN TIME-INR Comments: Reference Range 0.9-1.1Moderate-intensity Warfarin Therapy 2.0-3.0Higher-intensity Warfarin Therapy 3.0-4.0 REPORT COMMENT:FASTING:NO INR 1.7 (Above high threshold) Comments: Reference Range 0.9-1.1Moderate-intensity Warfarin Therapy 2.0-3.0Higher-intensity Warfarin Therapy 3.0-4.0 PT 16.7 {sec} (Above high threshold) Range: 9.0-11.5 Comments: For more information on this test, go to:http://education.[employer]faq/[email or web address] 09-Wwx-981906:58 [O] Urine Dipstick (In Office) Glucose NORMAL (Normal) LEUKOCYTES TRACE NITRITE NEGATIVE (Normal) UROBILINOGEN NORMAL (Normal) PROTEIN TRACE pH 5 (Normal) URINE BLOOD NEGATIVE (Normal) SPECIFIC GRAVITY 1.020 (Normal) KETONES NEGATIVE (Normal) BILIRUBIN NEGATIVE (Normal) COLOR URINE YELLOW (Normal) 3-[id number]:30 [[facility]] PROTHROMBIN TIME-INR Comments: Reference Range 0.9-1.1Moderate-intensity Warfarin Therapy 2.0-3.0Higher-intensity Warfarin Therapy 3.0-4.0 REPORT COMMENT:FASTING:YES INR 2.6 (Above high threshold) Comments: Reference Range 0.9-1.1Moderate-intensity Warfarin Therapy 2.0-3.0Higher-intensity Warfarin Therapy 3.0-4.0 PT 25.8 {sec} (Above high threshold) Range: 9.0-11.5 Comments: For more information on this test, go to:http://education.[employer]faq/DLW484 Plan of Care Name Dates Details Planned Observations Planned Goals not documented Planned Encounters Appointment; TAMIE HINTON M.D. On: 09-Jan-2019 10:00 Appointment; JACQUES GATICA On: 15-Jan-2019 10:00 Appointment; LUIGI CONCEPCION M.D. On: 15-Jan-2019 11:00 Appointment; TAMIE HINTON M.D. On: 22-Feb-2019 10:00 Instructions Name Dates Details Instructions not documented Encounters Appointment; BRUNO CABRERA Encounter Diagnosis: Problem not documented On: 27-Dec-2016 10:45 Appointment; BRUNO CABRERA Encounter Diagnosis: Problem not documented On: 24-Jan-2017 10:30 Appointment; BRUNO CABRERA Encounter Diagnosis: Problem not documented On: 07-Mar-2017 11:30 Appointment; LUIGI CONCEPCION M.D. Encounter Diagnosis: Problem not documented On: 17-Mar-2017 11:00 Appointment; HEMATPOUR, KHASHAYAR Encounter Diagnosis: Problem not documented On: 28-Mar-2017 9:15 Appointment; LUIGI CONCEPCION M.D. Encounter Diagnosis: Problem not documented On: 12-Apr-2017 14:40 Appointment; HEMATPOUR, KHASHAYAR Encounter Diagnosis: Problem not documented On: 18-Apr-2017 10:30 Appointment; WAYNE MORA D.O. Encounter Diagnosis: Problem not documented On: 20-Apr-2017 11:00 Appointment; HEMATPOUR, KHASHAYAR Encounter Diagnosis: Problem not documented On: 25-Apr-2017 10:15 Appointment; HEMATPOUR, KHASHAYAR Encounter Diagnosis: Problem not documented On: 02-May-2017 10:00 Appointment; HEMATPOUR, KHASHAYAR Encounter Diagnosis: Problem not documented On: 16-May-2017 9:30 Appointment; HEMATPOUR, KHASHAYAR Encounter Diagnosis: Problem not documented On: 25-May-2017 11:00 Appointment; LUIGI CONCEPCION M.D. Encounter Diagnosis: Problem not documented On: 14-Jun-2017 16:20 Appointment; HEMATPOUR, KHASHAYAR Encounter Diagnosis: Problem not documented On: 20-Jun-2017 10:45 Appointment; LUIGI CONCEPCION M.D. Encounter Diagnosis: Problem not documented On: 30-Jun-2017 12:40 Appointment; HEMATPOUR, KHASHAYAR Encounter Diagnosis: Problem not documented On: 11-Jul-2017 11:15 Appointment; WAYNE MORA D.O. Encounter Diagnosis: Problem not documented On: 31-Jul-2017 13:15 Appointment; HEMATPOUR, KHASHAYAR Encounter Diagnosis: Problem not documented On: 08-Aug-2017 11:00 Appointment; HEMATPOUR, KHASHAYAR Encounter Diagnosis: Problem not documented On: 22-Aug-2017 [...] Problem not documented On: 08-May-2018 10:30 Appointment; BRUNO CABRERA Encounter Diagnosis: Problem not documented On: 19-Jun-2018 10:45 Appointment; LUIGI CONCEPCION M.D. Encounter Diagnosis: Problem not documented On: 17-Jul-2018 12:40 Appointment; JACQUES GATICA Encounter Diagnosis: Problem not documented On: 26-Jul-2018 [...] documented On: 05-Dec-2018 9:00 Appointment; STEVE MARTE HOG STICKER Encounter Diagnosis: Problem not documented On: 19-Dec-2018 11:00 Appointment; WAYNE MORA D.O. Encounter Diagnosis: Problem not documented On: 22-Dec-2018 9:30
[2018-12-26] MEDS ORDERED: SODIUM CHLORIDE 0.9% 1000ML 1,000 ML IV STA (09:34)
[2018-12-26] MEDS ORDERED: DIATRIZOATE MEGL/DIATRIZOA SOD 30 ML BTL PO ONE (10:06)
--- NOTE | 2018-12-26 11:14 | NUR ---
No distress. AA&Ox3. VSS.
[2018-12-26 11:38] LABS: BASOPHILS % 0.5 % (0.0-1.0); EOSINOPHILS % 0.4 % (0.0-6.0); HEMOGLOBIN 11.1 g/dL (12.0-16.0); LYMPHOCYTES # (AUTO) 0.2 (1.0-3.2); MEAN CORPUSCULAR HGB CONC 31.7 g/dL (31-35); MEAN CORPUSCULAR VOLUME 91.4 fL (81-99); MONOCYTES # (AUTO) 1.2 (0.2-0.8); MONOCYTES % 15.2 % (4.4-11.3); NEUTROPHILS # (AUTO) 6.5 (2.1-6.9); NEUTROPHILS % 80.2 % (38.7-80.0); PLATELET COUNT 202 x10e3/uL (140-360); RED BLOOD COUNT 3.83 x10e6/uL (3.6-5.1); RED CELL DISTRIBUTION WIDTH 18.5 % (11.7-14.4)
[2018-12-26 11:52] LABS: ALANINE AMINOTRANSFERASE 8 IU/L (0-55); ALBUMIN 3.2 g/dL (3.5-5.0); ALBUMIN/GLOBULIN RATIO 1.1 (0.8-2.0); ALKALINE PHOSPHATASE 48 IU/L (40-150); ANION GAP 14.9 mmol/L (8-16); BLOOD UREA NITROGEN 22 mg/dL (7-26); BUN/CREATININE RATIO 27 (6-25); CALCIUM 9.1 mg/dL (8.4-10.2); CARBON DIOXIDE 26 mmol/L (22-29); CHLORIDE 97 mmol/L (98-107); CREATINE KINASE 21 IU/L (29-168); CREATININE, SERUM 0.82 mg/dL (0.57-1.11); EST GLOMERULAR FILTRATION RATE > 60 ML/MIN (60-); GLUCOSE 102 mg/dL (74-118); LIPASE 11 U/L (8-78); POTASSIUM 3.9 mmol/L (3.5-5.1); SODIUM 134 mmol/L (136-145)
--- NOTE | 2018-12-26 13:51 | Diagnostic Imaging Report ---
EXAM: CT Abdomen and Pelvis WITH contrast INDICATION: Diarrhea, abdominal pain. COMPARISON: CT Abdomen/Pelvis without contrast 12/19/2018. TECHNIQUE: Abdomen and pelvis were scanned utilizing a multidetector helical scanner from the lung base to the pubic symphysis after administration of IV contrast. Coronal and sagittal reformations were obtained. Routine protocol was performed. Scan was performed when during portal venous phase. IV CONTRAST: 100 cc of Isovue 370 ORAL CONTRAST: Gastrografin. COMPLICATIONS: None RADIATION DOSE: Total DLP: 422.1 mGy*cm CTDIvol has been reviewed. It is below the limits set by the Radiation Protocol Committee (RPC). Dose modulation, iterative reconstruction, and/or weight based adjustment of the mA/kV was utilized to reduce the radiation dose to as low as reasonably achievable. FINDINGS: LINES and TUBES: Partially seen pacemaker leads and cardiomegaly. LOWER THORAX: Patchy dependent atelectasis. HEPATOBILIARY: Subcentimeter hepatic hypodensities are too small to characterize, but likely represent cysts. No biliary ductal dilation. GALLBLADDER: No radio-opaque stones or sludge. No wall thickening. SPLEEN: No splenomegaly. PANCREAS: No focal masses or ductal dilatation. ADRENALS: No adrenal nodules KIDNEYS/URETERS: Kidneys enhance symmetrically. No evidence of hydronephrosis, solid mass, or stone. Left-sided renal cyst and other subcentimeter renal hypodensities, too small to characterize, likely cysts. GI TRACT: There is focal circumferential rectal wall thickening, measuring up to 6 mm on series 2, image 59 without surrounding inflammatory changes. There is also possible mild distal rectal/anal wall thickening and stranding on series 2, image 71. Sigmoid diverticulosis without CT evidence of diverticulitis. Appendix is normal. PELVIC ORGANS/BLADDER: Unremarkable. LYMPH NODES: No lymphadenopathy. VESSELS: Moderate atherosclerotic changes of the abdominal aorta and branch vessels. PERITONEUM / RETROPERITONEUM: No free air or fluid. BONES AND SOFT TISSUES: Partially seen bilateral breast implants. CONCLUSION: Focal circumferential rectal wall thickening measuring up to 6 mm without inflammatory changes. Underlying stricture or neoplastic process is not excluded and direct visualization is suggested. Mild thickening of the distal rectum/anus with surrounding stranding may be inflammatory in etiology and can be correlated clinically and with direct inspection. Diverticulosis without CT evidence of diverticulitis. Signed by: Dr. Radha Mcmullen MD on 12/26/2018 1:48 PM
--- NOTE | 2018-12-26 19:00 | NUR ---
Received patient from day nurse, patient is alert and oriented, safety and fall precautions maintained, patient condition throughout the night was stable, patient endorsed to next shift for continuity of care.
[2018-12-26] MEDS ORDERED: SODIUM CHLORIDE 0.9% 50ML 50 ML ONE (19:26)
[2018-12-26] MEDS ORDERED: IOPAMIDOL 370 MG/ML 200 ML INFUS..BTL INJ ONE (19:27)
[2018-12-26 21:09] VITALS: BP 139/65
[2018-12-26 22:00] VITALS: BP 139/65
--- NOTE | 2018-12-26 22:10 | NUR ---
Dr. Coffey made aware that patient has a pace maker but patient is not on heart monitor and he ordered to place patient on monitor.
[2018-12-27] VITALS (7 sets, daily range): BP systolic 139–181; BP diastolic 65–85
[2018-12-27] MEDS ORDERED: CITRATE OF MAGNESIA 300ML BOTTLE PO ONE ×2 (05:00→09:00)
[2018-12-27 05:50] LABS: BASOPHILS % 0.6 % (0.0-1.0); EOSINOPHILS % 0.5 % (0.0-6.0); HEMATOCRIT 32.7 % (34.2-44.1); HEMOGLOBIN 10.5 g/dL (12.0-16.0); LYMPHOCYTES # (AUTO) 0.2 (1.0-3.2); LYMPHOCYTES % 2.8 % (18.0-39.1); MEAN CORPUSCULAR HEMOGLOBIN 29.6 pg (28-32); MEAN CORPUSCULAR HGB CONC 32.1 g/dL (31-35); MEAN CORPUSCULAR VOLUME 92.1 fL (81-99); MONOCYTES # (AUTO) 1.2 (0.2-0.8); MONOCYTES % 17.7 % (4.4-11.3); NEUTROPHILS % 75.8 % (38.7-80.0); PLATELET COUNT 177 x10e3/uL (140-360); RED BLOOD COUNT 3.55 x10e6/uL (3.6-5.1); RED CELL DISTRIBUTION WIDTH 18.4 % (11.7-14.4)
[2018-12-27 06:11] LABS: ALANINE AMINOTRANSFERASE 7 IU/L (0-55); ALBUMIN 2.7 g/dL (3.5-5.0); ALBUMIN/GLOBULIN RATIO 1.2 (0.8-2.0); ALKALINE PHOSPHATASE 40 IU/L (40-150); ANION GAP 13.5 mmol/L (8-16); BLOOD UREA NITROGEN 14 mg/dL (7-26); BUN/CREATININE RATIO 22 (6-25); CALCIUM 8.2 mg/dL (8.4-10.2); CARBON DIOXIDE 23 mmol/L (22-29); CHLORIDE 102 mmol/L (98-107); CREATININE, SERUM 0.63 mg/dL (0.57-1.11); EST GLOMERULAR FILTRATION RATE > 60 ML/MIN (60-); GLUCOSE 96 mg/dL (74-118); POTASSIUM 3.5 mmol/L (3.5-5.1); SODIUM 135 mmol/L (136-145)
[2018-12-27] MEDS: FAMOTIDINE 20 MG TAB PO SCH ×2 (07:30→16:57)
--- NOTE | 2018-12-27 08:17 | NUR ---
Received patient this morning and alert and responsive, consult to Sumit Saenz and has been called this morning for proctitis.
[2018-12-27] MEDS ORDERED: NON-FORMULARY MEDICATION (Pravastatin Sodium 40 MG) PO SCH (09:00)
[2018-12-27] MEDS: LEVOTHYROXINE SODIUM 50 MCG TAB PO SCH (09:00)
[2018-12-27] MEDS ORDERED: LEVOTHYROXINE SODIUM 75 MCG TAB PO SCH (09:00)
--- NOTE | 2018-12-27 09:10 | History and Physical ---
PRIMARY CARE PHYSICIAN: Dr. Shay CHIEF COMPLAINT: Left lower abdominal pain. HISTORY OF PRESENT ILLNESS: This is an 83-year-old woman with a history of atrial fibrillation and rheumatoid arthritis. She was diagnosed with throat cancer in the fall of 2017. Now developing left lower abdominal pain with nausea, vomiting, and diarrhea. She is admitted for further evaluation and management. PAST MEDICAL HISTORY: Rheumatoid arthritis, atrial fibrillation, throat cancer diagnosed in the fall, infected and ruptured left breast prosthesis status post removal, hypertension, osteoporosis, neuropathy, hypothyroidism, overactive bladder, hyperlipidemia. PAST SURGICAL HISTORY: Hysterectomy, permanent pacemaker placement. ALLERGIES: PER ELECTRONIC MEDICAL RECORD. FAMILY/SOCIAL HISTORY: The patient is . No alcohol, illicits or cigarettes. MEDICATIONS: Per electronic medical record. REVIEW OF SYSTEMS: Denies any fever, chills, sweats. Denies any headache, chest pain. Denies any shortness of breath. Denies any leg pain, back pain, skin rash or vision changes. PHYSICAL EXAMINATION VITAL SIGNS: Have been reviewed. GENERAL: A tired-appearing woman resting in bed. HEENT: Anicteric. CARDIOVASCULAR: Normal S1 and S2. LUNGS: Moderate breath sounds. ABDOMEN: Soft, nondistended. She has left lower abdominal tenderness. No rebound or guarding. EXTREMITIES: No edema or calf tenderness. NEUROLOGIC: Alert and oriented x3, moving all extremities. SKIN: Dry. PSYCHIATRIC: Normal affect. LABS: Reviewed. MEDICATIONS: Reviewed. ASSESSMENT: This is an 83-year-old woman. 1. Proctitis. 2. Diverticulosis. 3. Acute gastroenteritis. 4. Normocytic anemia. 5. Neuropathy. 6. Hypothyroidism. 7. Paroxysmal atrial fibrillation. 8. Hypertension. 9. Rheumatoid arthritis. PLAN 1. Rehydrate patient. 2. IV Zosyn. 3. GI consultation. 4. IV Solu-Medrol. 5. Restart home medications. 6. SCDs and Pepcid for placenta. 7. Disposition: Monitor closely and follow up GI recommendations. Job#: [id number]
[2018-12-27] MEDS: METHYLPREDNISOLONE SOD SUCC 40 MG/ML VIAL 1ML IV SCH ×2 (09:25→21:18)
[2018-12-27] MEDS: METOPROLOL SUCCINATE 50 MG TAB XL PO SCH (09:26)
[2018-12-27] MEDS: OXYBUTYNIN CHLORIDE 5 MG TAB PO SCH (09:26)
[2018-12-27] MEDS: PIPER-TAZ 3.375 GM 50 ML IV SCH ×3 (09:27→21:18)
[2018-12-27] MEDS: SODIUM CHLORIDE 0.9% 1000ML 1,000 ML IV SCH (09:27)
--- NOTE | 2018-12-27 10:38 | NUR ---
Call to Dr. Coffey and orders in place for Carrie PRN for back pains
[2018-12-27] MEDS: HYDROCODONE/APAP 5MG-325MG TAB PO PRN ×2 (11:09→19:46)
--- NOTE | 2018-12-27 12:47 | NUR ---
Call to attending and orders in place for boost drink TID and for zofran
[2018-12-27] MEDS: ONDANSETRON HCL INJ 2MG/ML 2ML 2 MG/ML VIAL IV PRN (13:01)
--- NOTE | 2018-12-27 18:17 | NUR ---
Nutrition Screen Note RD Recommendation for Physician: Continue diet as ordered Plan of Care: RD following, monitoring for adequacy and tolerance Nutrition reason for involvement: Nutrition Risk Trigger, Follow up - [facility] Primary Diagnose(s):proctitis Ht:64 in Wt:111lbs BMI:19.1 kg/m2 IBW:120lbs RD Assessment:(12/27) Initial encounter with patient. Pt has some nausea, but no vomiting. Pt denies any wt changes. Pt requesting a commercial beverage and is willing to take strawberry Ensure Enlive due to a poor appetite/intake. No difficulty chewing or swallowing with Dentures. Hx of esophageal cancer Current Diet: Cardiac diet with strawberry Ensure Enlive TID with meals Malnutrition Evaluation (12/27/2018) The patient does not meet criteria for a specified degree of malnutrition at this time. Will re-evaluate at follow-up as appropriate. Diet Education Needs Assessment: Diet education not indicated. Diet Adequacy: Meeting calorie needs, Meeting protein needs, Meeting fluid needs Tolerance: Tolerating PO Nutrition Care Level: Jordan Gutiérrez RD, LD, CNSC
[2018-12-27] MEDS ORDERED: ALPRAZOLAM 0.5 MG TAB PO PRN (20:45)
--- NOTE | 2018-12-27 20:46 | NUR ---
patient anxious and agitated, patient calmed down, family at bedside but increasing anxiety and agitation, Dr. Coffey made aware, and received order for xanax.
[2018-12-27] MEDS: PRAVASTATIN 20 MG TAB PO SCH (21:18)
[2018-12-27] MEDS ORDERED: BISACODYL 5 MG TAB EC PO ONE (23:59)
[2018-12-28] VITALS: BP 112/58
[2018-12-28] MEDS ORDERED: BISACODYL 5 MG TAB EC PO ONE (00:30)
[2018-12-28 04:00] VITALS: BP 167/81
[2018-12-28] MEDS: SODIUM CHLORIDE 0.9% 1000ML 1,000 ML IV SCH (05:34)
[2018-12-28] MEDS: PIPER-TAZ 3.375 GM 50 ML IV SCH ×4 (05:34→21:35)
[2018-12-28] MEDS ORDERED: CITRATE OF MAGNESIA 300ML BOTTLE PO ONE ×2 (05:45→09:00)
[2018-12-28] MEDS: LEVOTHYROXINE SODIUM 50 MCG TAB PO SCH (06:00)
--- NOTE | 2018-12-28 06:04 | NUR ---
IM - Progress Note O/N; no events REVIEW OF SYSTEMS: Denies any fever, chills, sweats. Denies any headache, chest pain. Denies any shortness of breath. Denies any leg pain, back pain, skin rash or vision changes. PHYSICAL EXAMINATION VITAL SIGNS: Have been reviewed. GENERAL: A tired-appearing woman resting in bed. HEENT: Anicteric. CARDIOVASCULAR: Normal S1 and S2. LUNGS: Moderate breath sounds. ABDOMEN: Soft, nondistended. She has left lower abdominal tenderness. No rebound or guarding. EXTREMITIES: No edema or calf tenderness. NEUROLOGIC: Alert and oriented x3, moving all extremities. SKIN: Dry. PSYCHIATRIC: Normal affect. LABS: Reviewed. MEDICATIONS: Reviewed. ASSESSMENT: This is an 83-year-old woman. 1. Proctitis. 2. Diverticulosis. 3. Acute gastroenteritis. 4. Normocytic anemia. 5. Neuropathy. 6. Hypothyroidism. 7. Paroxysmal atrial fibrillation. 8. Hypertension. 9. Rheumatoid arthritis. PLAN 1. Rehydrate patient. 2. IV Zosyn. 3. GI consultation. 4. IV Solu-Medrol. 5. Restart home medications. 6. SCDs and Pepcid for placenta. 7. Disposition: Monitor closely and follow up GI recommendations. 12/28 colonoscopy pending; Asaf Coffey MD, PhD.
--- NOTE | 2018-12-28 06:54 | NUR ---
patient endorsed to next shift for continuity of care.
--- NOTE | 2018-12-28 07:48 | NUR ---
CM CALLED DR. CHOW THIS AM REGARDING PATIENT PLAN OF CARE AND DISCHARGE PLAN. DR. CHOW STATES PATIENT WILL RECEIVE COLONOSCOPY TODAY DEPENDING ON WHAT GI FINDS DURING PROCEDURE WILL DETERMINE PATIENT PLAN. CM TO FOLLOW UP POST PROCEDURE.
[2018-12-28] MEDS: OXYBUTYNIN CHLORIDE 5 MG TAB PO SCH (08:38)
[2018-12-28] MEDS: METHYLPREDNISOLONE SOD SUCC 40 MG/ML VIAL 1ML IV SCH ×2 (08:38→21:35)
[2018-12-28] MEDS: FAMOTIDINE 20 MG TAB PO SCH ×2 (08:38→17:12)
[2018-12-28] MEDS: METOPROLOL SUCCINATE 50 MG TAB XL PO SCH (08:39)
[2018-12-28 08:49] VITALS: BP 155/75
[2018-12-28] MEDS: HYDROCODONE/APAP 5MG-325MG TAB PO PRN ×2 (08:51→15:00)
[2018-12-28] MEDS: ONDANSETRON HCL INJ 2MG/ML 2ML 2 MG/ML VIAL IV PRN (09:11)
[2018-12-28 12:11] VITALS: BP 143/76
[2018-12-28] MEDS ORDERED: PROPOFOL IV EMULSION 10 MG/ML 20 ML VIAL ONE (14:23)
--- NOTE | 2018-12-28 15:53 | NUR ---
SOCIAL WORK INITIAL ASSESSMENT Sample Carrier to bedside to discuss plan of care with patient/family. CM/SW role and care transitions discussed. Anticipated discharge plan discussed along with duration of care. CM/SW discussed patients right to make decisions in care. CM/SW work hours given. Patient lives: IN HOUSE WITH FAMILY Admit/Transfer: VIA ED POA/Emergency contact: XIOMARA HODGE [phone] OR [phone] Current/Previous Home Health: NONE PCP/Follow-up Care: MELANIE Current/Previous DME: JEANE Other Services: NONE Employment Status: RETIRED Areas of Concerns: NONE Referral Needs: NONE Education Needs: NA IMM/HERNANDEZ given and signed (if applicable): UPON ADMISSION Goal for discharge: RETURN HOME CM/SW left business card at the bedside with contact information. Name and number was also written on the patients whiteboard. Patient verbalized understanding of discussion. CM will follow-up with ongoing discharge and transition of care needs. Addendum: 12/28/18 at 1558 by Cee Michelle CM HAS A PROVIDER PRIVATE PAID FOR 40 HOURS A WEEK AND GETS CHEMO WEEKLY ON THURSDAYS ALSO STATES HAS A BLEEDING HEMRHOID, AND STATES FELL AFTER THANKSGI AND HURT BACK.
[2018-12-28 16:00] VITALS: BP 154/82
--- NOTE | 2018-12-28 17:26 | NUR ---
Patient picked up for procedure at this time
[2018-12-28] MEDS ORDERED: GLUCAGON FOR INJ 1 MG VIAL ONE (18:18)
[2018-12-28 19:08] LABS: WBC,FECAL (FECAL LACTOFERRIN) NEGATIVE (NEGATIVE)
--- NOTE | 2018-12-28 19:25 | NUR ---
report received and walking rounds complete.
[2018-12-28 20:00] VITALS: BP 136/77
[2018-12-28] MEDS: PRAVASTATIN 20 MG TAB PO SCH (21:35)
[2018-12-28] MEDS: DICYCLOMINE HCL 10 MG CAP PO SCH (21:35)
--- NOTE | 2018-12-28 23:12 | Operative Report ---
DATE OF PROCEDURE: December 28, 2018 REFERRING PHYSICIAN: Asaf Coffey MD PROCEDURE PERFORMED: Colonoscopy with polypectomy and biopsies. INDICATIONS FOR COLONOSCOPY: Diarrhea, abnormal CAT scan of the abdomen. MEDICATION: Patient was done under MAC. Please see anesthesiologist's note. PROCEDURE: With patient in left lateral decubitus position, flexible fiberoptic Olympus colonoscope was inserted into the rectum with ease and advanced all the way to the cecum. An approximately 1.2 cm sessile polyp was noted in the cecum and that was removed per snare electrocautery and polypectomy site was hemoclipped x1. An approximately 2.5 cm sessile mass was noted in the proximal ascending colon that was partially resected per piecemeal electrocautery and it was hemoclipped x2. The rest of the ascending and transverse appeared to be within normal limits. Diverticular disease was noted in the distal descending and the sigmoid colon. There was some mild patchy erythema and low-grade edema noted in the rectum and biopsies were obtained. The scope was then retroflexed into the distal rectum and moderate-sized internal hemorrhoids were noted, none of which was actively bleeding. The scope was then straightened out. The scope was subsequently withdrawn after securing an adequate stool specimen that was sent for the appropriate stool studies. Patient tolerated procedure well. IMPRESSION: 1. Cecal polyp approximately 1.2 cm, sessile, removed per snare electrocautery and polypectomy site hemoclipped x1. 2. Approximately 2.5 cm sessile mass in proximal ascending colon partially resected per piecemeal electrocautery and hemoclipped x2. 3. Diverticulosis. 4. Proctitis, mild, biopsied. 5. Internal hemorrhoids, none actively bleeding. PLAN: Follow up histology. Follow up stool studies. Initiate Bentyl 10 mg 1 p.o. t.i.d. Patient will need a followup colonoscopy in approximately 4 weeks to remove residual polypoid tissue in the ascending colon. Job#: [id number] GLADYS cc:Asaf Coffey MD
[2018-12-29 00:30] VITALS: BP 129/65
[2018-12-29] MEDS: PIPER-TAZ 3.375 GM 50 ML IV SCH ×3 (03:38→14:19)
[2018-12-29] MEDS: SODIUM CHLORIDE 0.9% 1000ML 1,000 ML IV SCH (03:38)
[2018-12-29] MEDS: LEVOTHYROXINE SODIUM 50 MCG TAB PO SCH (05:48)
[2018-12-29 05:50] VITALS: BP 143/75
--- NOTE | 2018-12-29 07:12 | NUR ---
Patient alert and responsive, no resp distress, in bed and caregiver (personal) in the room, denies any more diarrhea, on GI soft diet, call light within reach, will monitor.
--- NOTE | 2018-12-29 07:23 | NUR ---
report given to day shift nurse and walking rounds received.
[2018-12-29] MEDS: FAMOTIDINE 20 MG TAB PO SCH (07:30)
[2018-12-29] MEDS: HYDROCODONE/APAP 5MG-325MG TAB PO PRN (08:01)
[2018-12-29] MEDS: DICYCLOMINE HCL 10 MG CAP PO SCH ×2 (08:08→14:19)
[2018-12-29] MEDS: METHYLPREDNISOLONE SOD SUCC 40 MG/ML VIAL 1ML IV SCH (08:08)
[2018-12-29] MEDS: OXYBUTYNIN CHLORIDE 5 MG TAB PO SCH (08:08)
[2018-12-29] MEDS: METOPROLOL SUCCINATE 50 MG TAB XL PO SCH (08:09)
[2018-12-29 08:41] VITALS: BP 165/79
[2018-12-29 10:03] VITALS: BP 165/79
[2018-12-29 12:00] VITALS: BP 122/63
--- NOTE | 2018-12-29 14:55 | NUR ---
Discharge Summary Principal Dx and Hospital Course: ASSESSMENT: This is an 83-year-old woman. 1. Proctitis. 2. Diverticulosis. 3. Acute gastroenteritis. 4. Normocytic anemia. 5. Neuropathy. 6. Hypothyroidism. 7. Paroxysmal atrial fibrillation. 8. Hypertension. 9. Rheumatoid arthritis. PLAN 1. Rehydrate patient. 2. IV Zosyn. 3. GI consultation. 4. IV Solu-Medrol. 5. Restart home medications. 6. SCDs and Pepcid for placenta. 7. Disposition: Monitor closely and follow up GI recommendations. 12/28 colonoscopy pending; 12/29 Polyp removed from cecum. 2.5cm mass in Asc colon- f/u pathology. Diverticulosis and proctitis seen; Internal hemorrhoids; d/c home f/u pcp 1 week and GI 2 weeks condition: stable d/c time>35mins. Asaf Coffey MD, PhD.
[2018-12-29 15:01] LABS: C DIFFICILE TOXIN A&B AMP PROB NEGATIVE (NEGATIVE)
[2018-12-29] MEDS ORDERED: DICYCLOMINE HCL10 MG PO (15:01)
[2018-12-29] MEDS ORDERED: FAMOTIDINE20 MG PO (15:01)
[2018-12-29] MEDS ORDERED: PRAVASTATIN SOD20 MG PO (15:01)
[2018-12-29] MEDS ORDERED: PREDNISONE20 MG PO (15:01)
--- NOTE | 2018-12-29 15:15 | NUR ---
Call to Dr. Saenz for clearance to discharge patient and waiting for call back
--- NOTE | 2018-12-29 15:36 | NUR ---
Spoke with Dr. Sumit Saenz and cleared patient for discharge and will send prescription to pharmacy.
[2018-12-29 16:00] VITALS: BP 141/67
--- NOTE | 2018-12-29 16:17 | NUR ---
Patient provided with discharge instructions and to f/u with Dr. De Leon for another colonoscopy, prescriptions will be sent to her pharmacy by MD, IV line removed and cath tip in place, dressin applied
== END 2018-12-29 16:18 | disposition home or self-care (01) ==
LOC: ER 09:12 → ERHOLD 14:30 → IMCU 21:07
PROVIDERS: ADMIT Internal Medicine; ATTEND Internal Medicine
DX: D12.0 Benign neoplasm of cecum (principal); D12.2 Benign neoplasm of ascending colon; C14.0 Malignant neoplasm of pharynx, unspecified; M06.9 Rheumatoid arthritis, unspecified; Z95.0 Presence of cardiac pacemaker; K62.89 Other specified diseases of anus and rectum; K52.9 Noninfective gastroenteritis and colitis, unspecified; D64.9 Anemia, unspecified; G62.9 Polyneuropathy, unspecified; E03.9 Hypothyroidism, unspecified; I48.0 Paroxysmal atrial fibrillation; I10 Essential (primary) hypertension; K57.30 Diverticulosis of large intestine without perforation or abscess without bleeding; K64.8 Other hemorrhoids
CPT/HCPCS: 36415 ×2; 45385; 74177; 80053 ×2; 82550; 82553; 83630; 83690; 83993; 84484; 85025 ×2; 87045; 87177; 87328; 87493; 88305; 99284; G0378 ×4; J1610; J2405; J2543 ×3; J2704; J2920 ×3; J7030 ×4; Q9967

== ENCOUNTER 2019-01-02 09:42 | Observation (INO) | payer MEDICARE ==
[~2019-01-02] VITALS: Ht 190.5 cm; Wt 111.1 kg
[~2019-01-02 09:42] MED LIST changes: +DICYCLOMINE HCL10 MG PO; +FAMOTIDINE20 MG PO; -GABAPENTIN100 MG; +GABAPENTIN100 MG PO; +PRAVASTATIN SOD20 MG PO; +PREDNISONE20 MG PO
--- OUTSIDE RECORDS SUMMARY | 2019-01-02 09:44 | XMS REPORT | Summary of Care ---
Author Author Cookie Lezama, Blanca Organization Unknown Address Unknown Phone Unavailable Care Team Providers Care Bedspring Assembler Name Role Phone WASHINGTON P.A., ELIZABETH Unavailable Unavailable CARLENE Camacho, LUIGI Unavailable Unavailable ABBY D.O., DULCE-YENNI Unavailable Unavailable JAMAAL Camacho, TAMIE Unavailable Unavailable Cookie Lezama, Blanca Unavailable Unavailable YEMonserrat DO [place], DULCE-YENNI Unavailable Unavailable ASHLEE Camacho, [...] CONCEPCION M.D. * Start : 20-Dec-2017 Active hydrALAZINE HCl - 50 MG Oral Tablet TAKE [...] Refills: 0 * Start : 05-Dec-2018 Active HYDROcodone-Acetaminophen 10-325 MG Oral Tablet TAKE 1 TABLET EVERY 6 HOURS * Refills: 0 * Start : 05-Dec-2018 Active Ondansetron 8 MG Oral Tablet Disintegrating 1 Tablet Every 8 Hours PRN Nausea or Vomiting * Quantity: 30 Refills: 3 ABBY D.WAYNE El * Start : 22-Dec-2018 Active Allergies and [...] Z87.440) Status: Resolved Procedures Procedure Dates Details [[facility]] TSH, 3RD GENERATION Date: 28-Nov-2018 [[facility]] PROTHROMBIN TIME-INR Date: 05-Dec-2018 [[facility]] PROTHROMBIN TIME-INR Date: 05-Dec-2018 [[facility]] PROTHROMBIN TIME-INR Date: 05-Dec-2018 History of Hysterectomy Completed History of Breast Surgery Mastectomy Completed History of Breast Reconstruction With Implant Prosthesis Immediate Completed Immunization Name Dates Details Fluarix Quadrivalent 0.5 ML SUSP Lot #: [id number] on: 13-Aug-2014 Fluzone Quadrivalent 0.5 ML Intramuscular Suspension Lot #: [id number] on: 02-Dec-2015 Fluzone Quadrivalent 0.5 ML Intramuscular Suspension Prefilled Syringe Lot #: [id number] on: 31-Aug-2016 DTaP on: 10-Nov-2016 Fluzone High-Dose 0.5 ML Intramuscular Suspension Prefilled Syringe Lot #: [id number] on: 16-Nov-2017 Fluzone Quadrivalent 0.5 ML Intramuscular Suspension Lot #: [id number] on: 14-Aug-2018 Influenza Comments: Approx 21Sep2013 Pneumococcal [...] BP Systolic 144 mm[Hg] Status: [place] [facility] [place]: [place] BP Diastolic 71 mm[Hg] Status: Comments: [place] [facility] [place] Position: [place]itting Heart Rate 80 /min Status: Comments: Location: L Radial; Quality: Normal :30 BP Systolic 145 mm[Hg] Status: Comments: [place] [facility] [place]: [place]itting BP Diastolic 74 mm[Hg] Status: Comments: Location: E; Position: Sitting Heart Rate 84 /min Status: Comments: Location: L Radial; Quality: Normal Height 64 in Status: Temperature 98.5 f Status: Comments: Method: Oral [id number] Physical Findings 8 Status: Comments: PHQ-9 Adult Depression Screening [id number] BP Systolic 107 mm[Hg] Status: Comments: Location: E; Position: Sitting BP Diastolic 58 mm[Hg] Status: [...] a day? Results Date Description Value Details :35 [[facility]] PROTHROMBIN TIME-INR Comments: Reference Range 0.9-1.1Moderate-intensity Warfarin Therapy 2.0-3.0Higher-intensity Warfarin Therapy 3.0-4.0 REPORT COMMENT:FASTING:NO INR 1.1 (Normal) Comments: Reference Range 0.9-1.1Moderate-intensity Warfarin Therapy 2.0-3.0Higher-intensity Warfarin Therapy 3.0-4.0 PT 11.0 {sec} (Normal) Range: 9.0-11.5 Comments: For more information on this test, go to:http://[employer]/faq/RSZ513 40-[id number]:35 [[facility]] PROTHROMBIN TIME-INR Comments: Reference Range 0.9-1.1Moderate-intensity Warfarin Therapy 2.0-3.0Higher-intensity Warfarin Therapy 3.0-4.0 INR 1.3 (Above high threshold) Comments: Reference Range 0.9-1.1Moderate-intensity Warfarin Therapy 2.0-3.0Higher-intensity Warfarin Therapy 3.0-4.0 PT 13.1 {sec} (Above high threshold) Range: 9.0-11.5 Comments: For more information on this test, go to:http://[employer]/faq/PLB326 78-Vqd-42838:30 [[facility]] PROTHROMBIN TIME-INR Comments: Reference Range 0.9-1.1Moderate-intensity Warfarin Therapy 2.0-3.0Higher-intensity Warfarin Therapy 3.0-4.0 INR 1.5 (Above high threshold) Comments: Reference Range 0.9-1.1Moderate-intensity Warfarin Therapy 2.0-3.0Higher-intensity Warfarin Therapy 3.0-4.0 PT 15.7 {sec} (Above high threshold) Range: 9.0-11.5 Comments: For more information on this test, go to:http://[employer]/faq/SNK411 [id number] [[facility]] PROTHROMBIN TIME-INR Comments: Reference Range 0.9-1.1Moderate-intensity Warfarin Therapy 2.0-3.0Higher-intensity Warfarin Therapy 3.0-4.0 REPORT COMMENT:FASTING:NO INR 1.7 (Above high threshold) Comments: Reference Range 0.9-1.1Moderate-intensity Warfarin Therapy 2.0-3.0Higher-intensity Warfarin Therapy 3.0-4.0 PT 16.7 {sec} (Above high threshold) Range: 9.0-11.5 Comments: For more information on this test, go to:http://[employer]/faq/DJM567 [id number] [O] Urine Dipstick (In Office) Glucose NORMAL (Normal) LEUKOCYTES TRACE NITRITE NEGATIVE (Normal) UROBILINOGEN NORMAL (Normal) PROTEIN TRACE pH 5 (Normal) URINE BLOOD NEGATIVE (Normal) SPECIFIC GRAVITY 1.020 (Normal) KETONES NEGATIVE (Normal) BILIRUBIN NEGATIVE (Normal) COLOR URINE YELLOW (Normal) [id number] [[facility]] PROTHROMBIN TIME-INR Comments: Reference Range 0.9-1.1Moderate-intensity Warfarin Therapy 2.0-3.0Higher-intensity Warfarin Therapy 3.0-4.0 REPORT COMMENT:FASTING:YES INR 2.6 (Above high threshold) Comments: Reference Range 0.9-1.1Moderate-intensity Warfarin Therapy 2.0-3.0Higher-intensity Warfarin Therapy 3.0-4.0 PT 25.8 {sec} (Above high threshold) Range: 9.0-11.5 Comments: For more information on this test, go to:http://[employer]/faq/TWR977 Plan of Care Name Dates Details Planned Observations Planned Goals not documented Planned Encounters Appointment; TAMIE HINTON M.D. On: 09-Jan-2019 10:00 Appointment; JACQUES GATICA On: 15-Jan-2019 10:00 Appointment; LUIGI CONCEPCION M.D. On: 15-Jan-2019 11:00 Appointment; TAMIE HINTON M.D. On: 22-Feb-2019 10:00 Interventions Provided Medication Changes* Warfarin Sodium 5 MG Oral Tablet - Renew Instructions Name Dates Details Instructions not documented Encounters Appointment; HEMATPOUR, KHASHAYAR Encounter Diagnosis: Problem not documented On: 24-Jan-2017 10:30 Appointment; HEMATPOUR, KHASHAYAR Encounter Diagnosis: Problem not documented On: 07-Mar-2017 [...] Problem not documented On: 03-May-2018 13:45 Appointment; XIOMARAPOUR, KHJORDONAYAR Encounter Diagnosis: Problem not documented On: 08-May-2018 10:30 Appointment; HEMATPOUR, KHASHAYAR Encounter Diagnosis: Problem not documented On: 19-Jun-2018 [...] Problem not documented On: 30-Nov-2018 9:30 Appointment; NEERUBEE, NURSING Encounter Diagnosis: Problem not documented On: 05-Dec-2018 9:00 Appointment; STEVE MARTE NP Encounter Diagnosis: Problem not documented On: 19-Dec-2018 11:00 Appointment; WAYNE MORA D.O. Encounter Diagnosis: Problem not documented On: 22-Dec-2018 9:30
[2019-01-02] MEDS ORDERED: SODIUM CHLORIDE 0.9% 1000ML 1,000 ML IV STA (10:28)
[2019-01-02] MEDS ORDERED: PANTOPRAZOLE 40 MG 10ML VIAL IV ONE (10:45)
[2019-01-02] MEDS ORDERED: ONDANSETRON HCL INJ 2MG/ML 2ML 2 MG/ML VIAL IV ONE (10:45)
[2019-01-02 11:26] LABS: BASOPHILS % 0.5 % (0.0-1.0); EOSINOPHILS % 0.5 % (0.0-6.0); HEMOGLOBIN 11.2 g/dL (12.0-16.0); LYMPHOCYTES # (AUTO) 0.2 (1.0-3.2); LYMPHOCYTES % 2.2 % (18.0-39.1); MEAN CORPUSCULAR HEMOGLOBIN 29.3 pg (28-32); MEAN CORPUSCULAR VOLUME 91.6 fL (81-99); MONOCYTES # (AUTO) 0.7 (0.2-0.8); MONOCYTES % 8.9 % (4.4-11.3); NEUTROPHILS % 81.2 % (38.7-80.0); PLATELET COUNT 103 x10e3/uL (140-360); RED BLOOD COUNT 3.82 x10e6/uL (3.6-5.1); RED CELL DISTRIBUTION WIDTH 19.2 % (11.7-14.4)
[2019-01-02 11:44] LABS: INR 0.93; PARTIAL THROMBOPLASTIN TIME 29.6 seconds (23.8-35.5); PROTHROMBIN TIME 13.3 seconds (11.9-14.5)
[2019-01-02 11:57] LABS: ALANINE AMINOTRANSFERASE 12 IU/L (0-55); ALKALINE PHOSPHATASE 37 IU/L (40-150); ANION GAP 15.9 mmol/L (8-16); BLOOD UREA NITROGEN 21 mg/dL (7-26); BUN/CREATININE RATIO 27 (6-25); CALCIUM 8.6 mg/dL (8.4-10.2); CARBON DIOXIDE 23 mmol/L (22-29); CHLORIDE 98 mmol/L (98-107); CREATINE KINASE 19 IU/L (29-168); CREATININE, SERUM 0.77 mg/dL (0.57-1.11); EST GLOMERULAR FILTRATION RATE > 60 ML/MIN (60-); GLUCOSE 96 mg/dL (74-118); LIPASE 17 U/L (8-78); MAGNESIUM 1.9 MG/DL (1.3-2.1); POTASSIUM 3.9 mmol/L (3.5-5.1); SODIUM 133 mmol/L (136-145)
[2019-01-02 13:11] LABS: LYMPHOCYTES % (MANUAL) 6 % (19-48); MONOCYTES % (MANUAL) 4 % (3.4-9.0); MYELOCYTES % (MANUAL) 1 % (0-0); NEUTROPHILS % (MANUAL) 89 % (40-74)
[2019-01-02 13:12] LABS: ANISOCYTOSIS SLIGHT; OVALOCYTES FEW; PLATELET ESTIMATE SLIGHTLY DECREASED; PLATELET MORPHOLOGY COMMENT RARE EDTA CLUMPING; POLYCHROMASIA FEW; RBC MORPHOLOGY COMMENT NORMAL
[2019-01-02 13:24] LABS: CLARITY,URINE CLEAR (CLEAR); COLOR,URINE YELLOW (YELLOW); KETONES,URINE NEGATIVE (NEGATIVE); LEUKOCYTE ESTERASE ,URINE TRACE (NEGATIVE); NITRITE,URINE NEGATIVE (NEGATIVE); PROTEIN,URINE DIPSTICK NEGATIVE (NEGATIVE)
[2019-01-02 13:25] LABS: BILIRUBIN,URINE NEGATIVE (NEGATIVE); URINE UROBILINOGEN 0.2 mg/dL (0.2 - 1)
[2019-01-02 13:35] LABS: BACTERIA,URINE MODERATE /HPF; EPITHELIAL CELLS,URINE FEW /LPF; WBC,URINE (MAN) 0-5 /HPF (0-5)
--- NOTE | 2019-01-02 14:12 | NUR ---
still waiting on report of CT abd/pelvis
[2019-01-02] MEDS ORDERED: PIPER-TAZ 3.375 GM 50 ML IV SCH (15:00)
[2019-01-02] MEDS ORDERED: METRONIDAZOLE 500MG/NS 100ML 100 ML IV SCH (15:00)
--- OUTSIDE RECORDS SUMMARY | 2019-01-02 15:13 | XMS REPORT | Summary of Care ---
Author Author Carmen Mcgraw LVN Organization Unknown Address Unknown Phone Unavailable Care Team Providers Care Chair Frame Builder Name Role Phone WASHINGTON P.A., ELIZABETH Unavailable Unavailable Carmen Mcgraw LVN Unavailable Unavailable CARLENE Camacho, LUIGI Unavailable Unavailable YEH D.O., DULCE-YENNI Unavailable Unavailable JAMAAL Camacho, TAMIE Unavailable Unavailable YEMonserrat DO [place], DULCE-YENNI Unavailable [...] Vomiting * Quantity: 30 Refills: 3 ABBY D.OWAYNE Yen * Start : 22-Dec-2018 Active Allergies and [...] Z87.440) Status: Resolved Procedures Procedure Dates Details [[facility]] TSH, 3RD GENERATION Date: 28-Nov-2018 [[facility]] PROTHROMBIN TIME-INR Date: 05-Dec-2018 [[facility]] PROTHROMBIN TIME-INR Date: 05-Dec-2018 [[facility]] PROTHROMBIN TIME-INR Date: 05-Dec-2018 History of Hysterectomy Completed History of Breast Surgery Mastectomy Completed History of Breast Reconstruction With Implant Prosthesis Immediate Completed Immunization Name Dates Details Fluarix Quadrivalent 0.5 ML SUSP Lot #: [id number] on: 13-Aug-2014 Fluzone Quadrivalent 0.5 ML Intramuscular Suspension Lot #: [id number] on: 02-Dec-2015 Fluzone Quadrivalent 0.5 ML Intramuscular Suspension Prefilled Syringe Lot #: [id number] on: 31-Aug-2016 DTaP on: 10-Nov-2016 Fluzone High-Dose 0.5 ML Intramuscular Suspension Prefilled Syringe Lot #: [id number] on: 16-Nov-2017 Fluzone Quadrivalent 0.5 ML Intramuscular Suspension Lot #: [id number] on: 14-Aug-2018 Influenza Comments: Approx 21Sep2013 Pneumococcal [...] BP Systolic 144 mm[Hg] Status: Comments[place] [facility] [place] BP Diastolic 71 mm[Hg] Status: Comments: [place] [facility] [place]: [place] Heart Rate 80 /min Status: Comments: Location: L Radial; Quality: Normal :30 BP Systolic 145 mm[Hg] Status: Comments: [place] [facility] [place]: [place] BP Diastolic 74 mm[Hg] Status: Comments: Location: [facility]; Position: Sitting Heart Rate 84 /min Status: Comments: Location: L Radial; Quality: Normal Height 64 in Status: Temperature 98.5 f Status: Comments: Method: Oral [id number] Physical Findings 8 Status: Comments: PHQ-9 Adult Depression Screening [id number] BP Systolic 107 mm[Hg] Status: Comments: [place] [facility] [place]: [place] BP Diastolic 58 mm[Hg] Status: [...] a day? Results Date Description Value Details [id number] [[facility]] PROTHROMBIN TIME-INR Comments: Reference Range 0.9-1.1Moderate-intensity Warfarin Therapy 2.0-3.0Higher-intensity Warfarin Therapy 3.0-4.0 INR 1.3 (Above high threshold) Comments: Reference Range 0.9-1.1Moderate-intensity Warfarin Therapy 2.0-3.0Higher-intensity Warfarin Therapy 3.0-4.0 PT 13.1 {sec} (Above high threshold) Range: 9.0-11.5 Comments: For more information on this test, go to:http://[employer].crossvertise/faq/GIN255 80-Oim-46124:30 [[facility]] PROTHROMBIN TIME-INR Comments: Reference Range 0.9-1.1Moderate-intensity Warfarin Therapy 2.0-3.0Higher-intensity Warfarin Therapy 3.0-4.0 INR 1.5 (Above high threshold) Comments: Reference Range 0.9-1.1Moderate-intensity Warfarin Therapy 2.0-3.0Higher-intensity Warfarin Therapy 3.0-4.0 PT 15.7 {sec} (Above high threshold) Range: 9.0-11.5 Comments: For more information on this test, go to:http://[employer].crossvertise/faq/LWD132 39-[id number] [[facility]] PROTHROMBIN TIME-INR Comments: Reference Range 0.9-1.1Moderate-intensity Warfarin Therapy 2.0-3.0Higher-intensity Warfarin Therapy 3.0-4.0 REPORT COMMENT:FASTING:NO INR 1.7 (Above high threshold) Comments: Reference Range 0.9-1.1Moderate-intensity Warfarin Therapy 2.0-3.0Higher-intensity Warfarin Therapy 3.0-4.0 PT 16.7 {sec} (Above high threshold) Range: 9.0-11.5 Comments: For more information on this test, go to:http://[employer].crossvertise/faq/BCT825 37-[id number] [O] Urine Dipstick (In Office) Glucose NORMAL (Normal) LEUKOCYTES TRACE NITRITE NEGATIVE (Normal) UROBILINOGEN NORMAL (Normal) PROTEIN TRACE pH 5 (Normal) URINE BLOOD NEGATIVE (Normal) SPECIFIC GRAVITY 1.020 (Normal) KETONES NEGATIVE (Normal) BILIRUBIN NEGATIVE (Normal) COLOR URINE YELLOW (Normal) [id number] [[facility]] PROTHROMBIN TIME-INR Comments: Reference Range 0.9-1.1Moderate-intensity Warfarin Therapy 2.0-3.0Higher-intensity Warfarin Therapy 3.0-4.0 REPORT COMMENT:FASTING:YES INR 2.6 (Above high threshold) Comments: Reference Range 0.9-1.1Moderate-intensity Warfarin Therapy 2.0-3.0Higher-intensity Warfarin Therapy 3.0-4.0 PT 25.8 {sec} (Above high threshold) Range: 9.0-11.5 Comments: For more information on this test, go to:http://[employer]/faq/FSG815 Plan of Care Name Dates Details Planned Observations Planned Goals not documented Planned Encounters Appointment; TAMIE HINTON M.D. On: 09-Jan-2019 10:00 Appointment; JACQUES GATICA On: 15-Jan-2019 10:00 Appointment; LUIGI CONCEPCION M.D. On: 15-Jan-2019 11:00 Appointment; TAMIE HINTON M.D. On: 22-Feb-2019 10:00 Interventions Provided Follow-ups/Referrals* Oncology Referral; To Be Done: 02 Jan 2019 Instructions Name Dates Details Instructions not documented [...] not documented On: 05-Dec-2018 9:00 Appointment; STEVE MARTE, SINGE MACHINE OPERATOR Encounter Diagnosis: Problem not documented On: 19-Dec-2018 11:00 Appointment; WAYNE MORA D.O. Encounter Diagnosis: Problem not documented On: 22-Dec-2018 9:30
[2019-01-02] MEDS ORDERED: IOPAMIDOL 370 MG/ML 200 ML INFUS..BTL INJ ONE (15:14)
[2019-01-02] MEDS ORDERED: SODIUM CHLORIDE 0.9% 50ML 50 ML ONE (15:14)
[2019-01-02] MEDS ORDERED: ONDANSETRON HCL INJ 2MG/ML 2ML 2 MG/ML VIAL IV PRN (15:15)
--- NOTE | 2019-01-02 15:20 | Diagnostic Imaging Report ---
EXAMINATION: CT of the abdomen and pelvis with contrast. TECHNIQUE: Helical CT images of the abdomen and pelvis were performed from the lung bases to the lesser trochanters after the intravenous administration of 150 cc of Isovue 300 and the oral administration of none. Coronal and sagittal reformatted images were obtained. Dose modulation, iterative reconstruction, and/or weight based adjustment of the mA/kV was utilized to reduce the radiation dose to as low as reasonably achievable. COMPARISON: 01/23/2019 and December 19, 2016 CLINICAL HISTORY:Diarrhea, pain DISCUSSION: ABDOMEN/PELVIS: LOWER THORAX:Breast augmentation. Small effusions. HEPATOBILIARY: No intra-or extrahepatic biliary ductal dilation. The gallbladder is normal. SPLEEN: No splenomegaly. PANCREAS: No focal masses or ductal dilatation. ADRENALS: No adrenal nodules. KIDNEYS/URETERS: No hydronephrosis. 2 cm left renal simple cyst. No solid mass. No calculi. PELVIC ORGANS/BLADDER: The bladder is normal. PERITONEUM/RETROPERITONEUM: No free air or fluid. LYMPH NODES: No intra-abdominal, retroperitoneal, pelvic or inguinal lymphadenopathy. VESSELS: Vascular calcifications. GI TRACT: Colonic diverticulosis without inflammatory change. Metallic density within the distal small bowel and proximal colon. BONES AND SOFT TISSUE: No bony destructive lesions. Pars defect L5 with grade 1 anterolisthesis. Disc space fusion of L5-S1. Schmorl's node at the superior endplate of L2. IMPRESSION: No acute CT finding. Colonic diverticulosis without inflammatory change. Small pleural effusions. Signed by: Dr. Jasper Mahajan M.D. on 01/02/2019 3:17 PM
[2019-01-02] MEDS: SODIUM CHLORIDE 0.9% 1000ML 1,000 ML IV SCH (15:44)
[2019-01-02] MEDS ORDERED: SODIUM CHLORIDE 0.9% 1000ML 1,000 ML IV ONE (16:00)
--- NOTE | 2019-01-02 18:51 | NUR ---
Admitted to unit. Transferred from stretcher to bed. Orientation to room and environment. Instructed to call for assistance. V/S 148/70, 82, 14, 99%, 99.4 oral
--- NOTE | 2019-01-02 19:00 | NUR ---
Report received and Walking rounds complete. Pt arrived at shift change
[2019-01-02] MEDS ORDERED: NORCO 5-325 TA1 EACH PO (20:36)
[2019-01-02] MEDS ORDERED: HYDROCODONE/APAP 5MG-325MG TAB PO PRN (20:45)
[2019-01-02] MEDS ORDERED: ALPRAZOLAM 0.25 MG TAB PO PRN (20:45)
[2019-01-02 20:55] VITALS: BP_SYST 107; BP_SYST 127; BP_DIAS 55; BP_DIAS 60
[2019-01-03 00:18] VITALS: BP 108/53
[2019-01-03] MEDS: SODIUM CHLORIDE 0.9% 1000ML 1,000 ML IV SCH (02:47)
[2019-01-03 04:26] VITALS: BP 140/60
[2019-01-03 05:31] LABS: BASOPHILS % 0.9 % (0.0-1.0); EOSINOPHILS # (AUTO) 0.1 (0.0-0.4); HEMATOCRIT 29.7 % (34.2-44.1); HEMOGLOBIN 9.5 g/dL (12.0-16.0); LYMPHOCYTES # (AUTO) 0.2 (1.0-3.2); LYMPHOCYTES % 4.9 % (18.0-39.1); MEAN CORPUSCULAR HEMOGLOBIN 29.1 pg (28-32); MEAN CORPUSCULAR VOLUME 90.8 fL (81-99); MONOCYTES # (AUTO) 0.6 (0.2-0.8); MONOCYTES % 12.9 % (4.4-11.3); NEUTROPHILS # (AUTO) 3.2 (2.1-6.9); NEUTROPHILS % 71.9 % (38.7-80.0); PLATELET COUNT 68 x10e3/uL (140-360); RED BLOOD COUNT 3.27 x10e6/uL (3.6-5.1)
[2019-01-03 06:00] LABS: ALANINE AMINOTRANSFERASE 7 IU/L (0-55); ALBUMIN 2.3 g/dL (3.5-5.0); ALBUMIN/GLOBULIN RATIO 1.1 (0.8-2.0); ALKALINE PHOSPHATASE 30 IU/L (40-150); ANION GAP 12.5 mmol/L (8-16); BLOOD UREA NITROGEN 11 mg/dL (7-26); BUN/CREATININE RATIO 20 (6-25); CALCIUM 7.7 mg/dL (8.4-10.2); CARBON DIOXIDE 22 mmol/L (22-29); CHLORIDE 104 mmol/L (98-107); CREATININE, SERUM 0.56 mg/dL (0.57-1.11); EST GLOMERULAR FILTRATION RATE > 60 ML/MIN (60-); GLUCOSE 84 mg/dL (74-118); POTASSIUM 3.5 mmol/L (3.5-5.1); SODIUM 135 mmol/L (136-145)
[2019-01-03] MEDS ORDERED: LEVOTHYROXINE SODIUM 50 MCG TAB PO SCH (06:00)
--- NOTE | 2019-01-03 06:45 | NUR ---
rounded with clinical nurse manager nurse, patient resting comfortably in bed and in no distress. Call akbar within reach and bed in lowest position.
[2019-01-03 07:10] VITALS: BP 162/72
[2019-01-03] MEDS ORDERED: FAMOTIDINE 20 MG TAB PO SCH (07:30)
[2019-01-03] MEDS ORDERED: PANTOPRAZOLE SOD 40 MG TABEC PO SCH (07:30)
[2019-01-03 07:45] VITALS: BP 162/72
--- NOTE | 2019-01-03 08:58 | NUR ---
discharge instructions given to patient and caregiver, both verbalized understanding. IV discontinued at this time, catheter in tact and small dressing applied. Patient to be wheeled out in wheelchair to personal auto for caregiver to drive home.
[2019-01-03] MEDS ORDERED: GABAPENTIN 100 MG CAP PO SCH (09:00)
[2019-01-03] MEDS ORDERED: METOPROLOL SUCCINATE 50 MG TAB XL PO SCH (09:00)
[2019-01-03] MEDS ORDERED: OXYBUTYNIN CHLORIDE 5 MG TAB PO SCH (09:00)
[2019-01-03] MEDS ORDERED: DICYCLOMINE HCL 10 MG CAP PO SCH (09:00)
[2019-01-03] MEDS ORDERED: TRIAMTERENE/HCTZ 37.5-25 MG TAB PO SCH (09:00)
--- NOTE | 2019-01-03 09:08 | NUR ---
SOCIAL WORK INITIAL ASSESSMENT Coal Weigher to bedside to discuss plan of care with patient/family. CM/SW role and care transitions discussed. Anticipated discharge plan discussed along with duration of care. CM/SW discussed patients right to make decisions in care. CM/SW work hours given. Patient lives: IN HOUSE WITH PROVIDER Admit/Transfer: VIA ED POA/Emergency contact: YADIRA OLMEDO [phone] Current/Previous Home Health: NA PCP/Follow-up Care: GERARD Current/Previous DME: [facility] Other Services: [employer] Employment Status: RETIRED Areas of Concerns: NA Referral Needs: NA Education Needs: NA IMM/HERNANDEZ given and signed (if applicable): HERNANDEZ Goal for discharge: RETURN HOME CM/SW left business card at the bedside with contact information. Name and number was also written on the patients whiteboard. Patient verbalized understanding of discussion. CM will follow-up with ongoing discharge and transition of care needs.
--- NOTE | 2019-01-03 09:09 | NUR ---
POST DISCHARGE STATUS FORM FILED IN FRONT OF CHART RETURNING HOME NO NEEDS
--- NOTE | 2019-01-03 09:28 | Discharge Summary ---
PRIMARY CARE PHYSICIAN: Zen FINAL DIAGNOSES 1. One episode of lower gastrointestinal bleed after colonoscopy that was done approximately a few days ago. 2. Tylra-yl-nhxrlmy blood loss anemia secondary to diverticulosis. 3. Diarrhea, resolved. SUMMARY: Patient is an 83-year-old female who recently had a colonoscopy. Patient at baseline with multiple chronic medical problems. She does have history of esophageal cancer. She is undergoing chemotherapy. Patient had an episode of bleed after her previous colonoscopy. The patient is otherwise stable. No further bleeding. She does have some diarrhea that has resolved. Abdominal pain unremarkable now and resolved. Patient's CT scan showed consistent with diverticulosis without diverticulitis. The patient is otherwise stable. She will go home today and continue with outpatient treatment. She will continue with her plan for chemotherapy today. Job#: [id number] KARTHIK
[2019-01-03 10:42] LABS: BAND NEUTROPHILS % (MANUAL) 6 %; EOSINOPHILS % (MANUAL) 1 % (0-7); LYMPHOCYTES % (MANUAL) 3 % (19-48); METAMYELOCYTES % (MANUAL) 2 % (0-0); MONOCYTES % (MANUAL) 5 % (3.4-9.0); NEUTROPHILS % (MANUAL) 81 % (40-74)
[2019-01-03 10:43] LABS: ANISOCYTOSIS SLIGHT; HYPOCHROMASIA SLIGHT; OVALOCYTES FEW; PLATELET ESTIMATE SLIGHTLY DECREASED; PLATELET MORPHOLOGY COMMENT FEW LARGE; RBC MORPHOLOGY COMMENT ABNORMAL
[2019-01-03 13:07] VITALS: BP 158/72
[2019-01-03] MEDS ORDERED: SIMVASTATIN 20 MG TAB PO SCH (21:00)
[2019-01-03] MEDS ORDERED: PREDNISONE 20 MG TAB PO SCH (21:00)
== END 2019-01-03 09:04 | disposition home or self-care (01) ==
LOC: ER 09:42 → ERHOLD 15:10 → IMCU 18:30
PROVIDERS: ADMIT Internal Medicine; ATTEND Internal Medicine
DX: K57.31 Diverticulosis of large intestine without perforation or abscess with bleeding (principal); D62 Acute posthemorrhagic anemia; R19.7 Diarrhea, unspecified; I10 Essential (primary) hypertension; I48.0 Paroxysmal atrial fibrillation; E03.9 Hypothyroidism, unspecified; Z95.810 Presence of automatic (implantable) cardiac defibrillator; Z85.3 Personal history of malignant neoplasm of breast; Z86.010 Personal history of colon polyps; Z82.49 Family history of ischemic heart disease and other diseases of the circulatory system
CPT/HCPCS: 36415 ×2; 74177; 80053 ×2; 81001; 82550; 82553; 83690; 83735; 84484; 85025 ×2; 85610; 85730; 86850; 86900; 96361; 99284; C9113; G0378 ×2; J2405; J7030 ×2; Q9967; S0164; 96360

== ENCOUNTER 2019-01-10 14:37 | Inpatient (IN) | payer MEDICARE ==
[~2019-01-10] VITALS: Ht 162.6 cm; Wt 55.3 kg
[~2019-01-10 14:37] MED LIST changes: +NORCO 5-325 TA1 EACH PO
--- OUTSIDE RECORDS SUMMARY | 2019-01-10 14:40 | XMS REPORT | Continuity of Care Document ---
Author Author [facility] Interface Address Unknown Phone Unavailable Problems Problem Status Onset Date Classification Date Reported Comments Source Abdominal pain Active Problem 01/03/2019 [facility] Breast infection Active Problem 01/03/2019 [facility] Diarrhea Active Problem 01/03/2019 [facility] Lower GI bleed Active Problem 01/03/2019 [facility] Proctitis Active Problem 01/03/2019 [facility] Medications Medication Details Route Status Patient Instructions Ordering Provider Order Date Source Dicyclomine Hcl 10 Mg Capsule Three Times A Day Active [facility] 12/29/2018 [facility] Famotidine 20 Mg Tab Twice Daily Before Meals Active [facility] 12/29/2018 [facility] Pravastatin Sodium 20 Mg Tablet Bedtime Active [facility] 12/29/2018 [facility] Prednisone 20 Mg Tab Every 12 Hours Active [facility] 12/29/2018 [facility] Dabigatran Etexilate Mesylate (Pradaxa) 75 Mg Capsule, Mg Oral Daily Active 12/29/2018 [facility] Warfarin Sodium (Jantoven) 5 Mg Tablet, 5 Mg Oral Daily Active 12/29/2018 [facility] Hydralazine Hcl 25 Mg Tab, 50 Mg Oral Daily Active 12/19/2018 [facility] Alendronate Sodium 10 Mg Tablet, 10 Mg Oral Use As Directed Active 12/07/2017 [facility] Amiodarone Hcl 200 Mg Tablet, 200 Mg Oral Use As Directed Active 12/07/2017 [facility] Valacyclovir Hcl (Valacyclovir) 500 Mg Tablet, 500 Mg Oral Daily Active 12/07/2017 [facility] Warfarin Sodium (Coumadin) 5 Mg Tablet, 5 Mg Peg Tube Daily Active 12/04/2017 [facility] Atenolol 100 Mg Tablet, 100 Mg Oral Daily Active 08/29/2017 [facility] Cefuroxime Axetil (Cefuroxime) 250 Mg Tablet, 250 Mg Oral Twice A Day Active 08/29/2017 [facility] Alendronate Sodium (Fosamax) 70 Mg Tablet Weekly Active [facility] Enalapril Maleate 20 Mg Tablet Daily Active [facility] Gabapentin 100 Mg Capsule Active [facility] Hydralazine Hcl 50 Mg Tablet Twice A Day Active [facility] Hydrocodone Bit/Acetaminophen (Bethany 5-325 Tablet) 1 Each Tablet Every 6 Hours as needed for Pain Active [facility] Leflunomide 20 Mg Tablet Daily Active [facility] Levothyroxine Sodium (Synthroid) 75 Mcg Tab Daily Active [facility] Metoprolol Succinate 50 Mg Tab.er.24h Daily Active [facility] Omeprazole 40 Mg Capsule.dr Daily Active [facility] Oxybutynin Chloride 5 Mg Tablet Daily Active [facility] Pravastatin Sodium 40 Mg Tablet Daily Active [facility] Triamterene/Hctz (Triamterene-Hctz 37.5-25 Mg Tb) 1 Ea Tab Daily Active [facility] Allergies, Adverse Reactions, Alerts Substance Category Reaction Severity Reaction type Status Date Reported Comments Source Immunizations Immunization Date Given Site Status Last Updated Comments Source Results Order Name Results Value Reference Range Date Interpretation Comments Source Blood leukocytes automated count (number/volume) 4.48 4.8 - 10.8 01/03/2019 [facility] Blood erythrocytes automated count (number/volume) 3.27 3.6 - 5.1 01/03/2019 [facility] Blood hemoglobin measurement (moles/volume) 9.5 12.0 - 16.0 01/03/2019 [facility] Automated blood hematocrit (volume fraction) 29.7 34.2 - 44.1 01/03/2019 [facility] Automated erythrocyte mean corpuscular volume 90.8 81 - 99 01/03/2019 [facility] Automated erythrocyte mean corpuscular hemoglobin (mass per erythrocyte) 29.1 28 - 32 01/03/2019 [facility] Automated erythrocyte mean corpuscular hemoglobin concentration measurement (mass/volume) 32.0 31 - 35 01/03/2019 [facility] RDW BldCo-Rto 19.0 11.7 - 14.4 01/03/2019 [facility] Automated blood platelet count (count/volume) 68 140 - 360 01/03/2019 [facility] Automated blood segmented neutrophil count as percentage of total leukocytes 71.9 38.7 - 80.0 01/03/2019 [facility] Automated blood lymphocyte count as percentage ot total leukocytes 4.9 18.0 - 39.1 01/03/2019 [facility] Automated blood monocyte count as percentage of total leukocytes 12.9 4.4 - 11.3 01/03/2019 [facility] Automated blood eosinophil count as percentage of total leukocytes 2.0 0.0 - 6.0 01/03/2019 [facility] Automated blood basophil count as percentage of total leukocytes 0.9 0.0 - 1.0 01/03/2019 [facility] IM GRANULOCYTES % 7.4 0.0 - 1.0 01/03/2019 [facility] Automated blood neutrophil count 3.2 2.1 - 6.9 01/03/2019 [facility] Blood lymphocytes count (number/volume) 0.2 1.0 - 3.2 01/03/2019 [facility] Blood monocytes automated count (number/volume) 0.6 0.2 - 0.8 01/03/2019 [facility] Automated blood eosinophil count 0.1 0.0 - 0.4 01/03/2019 [facility] Automated blood basophil count (count/volume) 0.0 0.0 - 0.1 01/03/2019 [facility] Absolute Immature Granulocyte (auto 0.33 0 - 0.1 01/03/2019 [facility] Serum or plasma sodium measurement (moles/volume) 135 136 - 145 01/03/2019 [facility] Serum or plasma potassium measurement (moles/volume) 3.5 3.5 - 5.1 01/03/2019 [facility] Serum or plasma chloride measurement (moles/volume) 104 98 - 107 01/03/2019 [facility] Serum or plasma carbon dioxide, total measurement (moles/volume) 22 22 - 29 01/03/2019 [facility] Serum or plasma anion gap 12.5 8 - 16 01/03/2019 [facility] Serum or plasma urea nitrogen measurement (mass/volume) 11 7 - 26 01/03/2019 [facility] Serum or plasma creatinine measurement (mass/volume) 0.56 0.57 - 1.11 01/03/2019 [facility] Serum or plasma urea nitrogen/creatinine mass ratio 20 6 - 25 01/03/2019 [facility] Estimated glomerular filtration rate (GFR) determination > 60 60 01/03/2019 [facility] Glucose measurement 84 74 - 118 01/03/2019 [facility] Serum or plasma calcium measurement (mass/volume) 7.7 8.4 - 10.2 01/03/2019 [facility] Serum or plasma total bilirubin measurement (mass/volume) 0.7 0.2 - 1.2 01/03/2019 [facility] Aspartate Amino Transf (AST/SGOT) 12 5 - 34 01/03/2019 [facility] Serum or plasma alanine aminotransferase measurement (enzymatic activity/volume) 7 0 - 55 01/03/2019 [facility] Serum or plasma protein measurement (mass/volume) 4.4 6.5 - 8.1 01/03/2019 [facility] Serum or plasma albumin measurement (mass/volume) 2.3 3.5 - 5.0 01/03/2019 [facility] Plasma globulin measurement (mass/volume) 2.1 2.3 - 3.5 01/03/2019 [facility] Serum or plasma albumin/globulin mass ratio 1.1 0.8 - 2.0 01/03/2019 [facility] Serum or plasma alkaline phosphatase measurement (enzymatic activity/volume) 30 40 - 150 01/03/2019 [facility] Urine color determination YELLOW YELLOW 01/02/2019 [facility] Urine clarity CLEAR CLEAR 01/02/2019 [facility] Specific gravity of Urine by Test strip 1.010 1.010 - 1.025 01/02/2019 [facility] Urine pH measurement by automated test strip 6 5 - 7 01/02/2019 [facility] Urine leukocyte esterase detection by dipstick TRACE NEGATIVE 01/02/2019 [facility] Urine nitrite detection NEGATIVE NEGATIVE 01/02/2019 [facility] Urine protein measurement by test strip (mass/volume) NEGATIVE NEGATIVE 01/02/2019 [facility] Urine glucose detection NEGATIVE NEGATIVE 01/02/2019 [facility] Urine ketones detection by automated test strip NEGATIVE NEGATIVE 01/02/2019 [facility] Urine urobilinogen measurement by test strip (mass/volume) 0.2 0.2 - 1 01/02/2019 [facility] Urine total bilirubin measurement (mass/volume) NEGATIVE NEGATIVE 01/02/2019 [facility] Urine erythrocytes detection NEGATIVE NEGATIVE 01/02/2019 [facility] Automated urine sediment leukocyte count by microscopy (number/high power field) 0-5 0 - 5 01/02/2019 [facility] Erythrocytes detection in urine sediment by light microscopy NONE 0 - 5 01/02/2019 [facility] Bacteria detection in urine sediment by light microscopy MODERATE NONE 01/02/2019 [facility] Epithelial cells detection in urine sediment by light microscopy FEW NONE 01/02/2019 [facility] Differential Total Cells Counted 100 01/02/2019 [facility] Manual blood neutrophils/100 leukocytes 89 40 - 74 01/02/2019 [facility] Manual blood lymphocytes/100 leukocytes 6 19 - 48 01/02/2019 [facility] Manual blood monocytes/100 leukocytes 4 3.4 - 9.0 01/02/2019 [facility] Manual blood myelocytes/100 leukocytes 1 0 - 0 01/02/2019 [facility] Blood platelets count by estimate (number/volume) SLIGHTLY DECREASED 01/02/2019 [facility] Platelet morphology RARE EDTA CLUMPING 01/02/2019 [facility] Blood polychromasia detection by light microscopy FEW 01/02/2019 [facility] Blood anisocytosis detection by light microscopy SLIGHT 01/02/2019 [facility] Blood ovalocytes detection by light microscopy FEW 01/02/2019 [facility] RBC morphology NORMAL 01/02/2019 [facility] Prothrombin time (PT) in platelet poor plasma by coagulation assay 13.3 11.9 - 14.5 01/02/2019 [facility] INR in Platelet poor plasma by Coagulation assay 0.93 01/02/2019 [facility] Activated partial thromboplastin time (aPTT) in platelet poor plasma bycoagulation assay 29.6 23.8 - 35.5 01/02/2019 [facility] Serum or plasma magnesium measurement (mass/volume) 1.9 1.3 - 2.1 01/02/2019 [facility] Serum or plasma creatine kinase measurement (enzymatic activity/volume) 19 29 - 168 01/02/2019 [facility] Serum or plasma creatine kinase MB measurement (mass/volume) 0.90 0 - 5.0 01/02/2019 [facility] Troponin I measurement by highly sensitive enzyme immunoassay 0.023 0 - 0.300 01/02/2019 [facility] Serum or plasma lipase measurement (enzymatic activity/volume) 17 8 - 78 01/02/2019 [facility] Stool lactoferrin detection NEGATIVE NEGATIVE 12/28/2018 [facility] Stool calprotectin measurement (mass/mass) <16 0 - 120 12/28/2018 [facility] Clostridium difficile A and B toxin assay NEGATIVE NEGATIVE 12/28/2018 [facility] Manual blood eosinophil count as percentage of total leukocytes 2 0 - 7 12/19/2018 [facility] Manual basophil percentage 1 0 - 1.5 12/19/2018 [facility] Blood lymphocytes variant count (number/volume) 2 12/19/2018 [facility] Transitional cells detection in urine sediment by light microscopy FEW NONE 12/19/2018 [facility] Amorphous sediment detection in urine sediment by light microscopy FEW FEW 12/19/2018 [facility] Serum or plasma amylase measurement (enzymatic activity/volume) 74 25 - 125 12/19/2018 [facility] Vital Signs Vital Sign Value Date Comments Source Encounters Location Location Details Encounter Type Encounter Number Reason For Visit Attending Provider ADM Date DC Date Status Source Departed Emergency Room [id number] LISA THOMSON MD 12/19/2018 12/19/2018 [facility] Discharged Inpatient (obs) [id number] RHIANNA CHOW MD 12/26/2018 12/29/2018 [facility] Discharged Inpatient (obs) [id number] GERALDO PARIS MD 01/02/2019 01/03/2019 [facility] Procedures Procedure Code Date Perfomer Comments Source Computed tomography of abdomen and pelvis with contrast [id number] 01/02/2019 SWEET [facility] Colonoscopy with polypectomy [id number] 12/28/2018 VALENZUELA [facility] Computed tomography of abdomen and pelvis with contrast [id number] 12/26/2018 BERTO [facility] Computed tomography of abdomen and pelvis with contrast [id number] 12/19/2018 KRISTINE [facility]
--- OUTSIDE RECORDS SUMMARY | 2019-01-10 14:41 | XMS REPORT | Summary of Care ---
Author Author Bhavna Shah Unknown Address [facility] Phone Unavailable Care Team Providers Care Provider Engagement Executive Name Role Phone [facility] P.A[facility] ELIZABETH Unavailable [...] Advanced directives, counseling/discussion (V65.49, Z71.89) Status: Active Back pain, sacroiliac (724.6, M53.3) [...] involving unspecified site (714.0, M06.00) Status: Active Skin rash (782.1, R21) Status: Active Diverticulitis, colon (562.11, K57.32) Status: Active Nausea with vomiting (787.01, R11.2) Status: Active Atrial fibrillation (427.31, I48.91) Status: Active Essential (primary) hypertension (401.9, I10) Status: Active Pacemaker (V45.01, Z95.0) Status: Active Abdominal pain (789.00, R10.9) Status: Active 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 * Start : 22-Dec-2018 Active Zinc CAPS * Refills: 0 Active traMADol HCl - 50 MG Oral Tablet * Refills: 0 Active Levothyroxine Sodium 25 MCG Oral Tablet TAKE 1 TABLET BY MOUTH DAILY * Quantity: 30 Refills: 1 TAMIE HINTON M.D. * Start : 09-Jan-2019 Active Allergies and Adverse Reactions Name Dates [...] Z87.440) Status: Resolved Procedures Procedure Dates Details [QLH] PROTHROMBIN TIME-INR Date: 05-Dec-2018 [QLH] PROTHROMBIN TIME-INR Date: 05-Dec-2018 [QLH] PROTHROMBIN TIME-INR Date: 05-Dec-2018 [QL] PROTHROMBIN TIME-INR Date: 05-Dec-2018 [QL] TSH, 3RD GENERATION W/REFLEX TO FT4 Date: 09-Jan-2019 [[facility]] PROTHROMBIN TIME-INR Date: 05-Dec-2018 History of Hysterectomy Completed History of Breast Surgery Mastectomy Completed History of Breast Reconstruction With Implant Prosthesis Immediate Completed Immunization Name Dates Details Fluarix Quadrivalent 0.5 ML SUSP Lot #: [id number] on: 13-Aug-2014 Fluzone Quadrivalent 0.5 ML Intramuscular Suspension Lot #: [id number] on: 02-Dec-2015 Fluzone Quadrivalent 0.5 ML Intramuscular Suspension Prefilled Syringe Lot #: [id number] on: 31-Aug-2016 DTaP on: 10-Nov-2016 Fluzone High-Dose 0.5 ML Intramuscular Suspension Prefilled Syringe Lot #: [id number] on: 16-Nov-2017 Fluzone Quadrivalent 0.5 ML Intramuscular Suspension Lot #: [id number] on: 14-Aug-2018 Influenza Comments: Approx 21Sep2013 Pneumococcal polysaccharide vaccine, 23 valent Comments: UNKNOWN DATE Family History Name Dates Details Family history of Hypertension (V17.49) Status: Active Family history of Alzheimer Disease Status: Active Family history of hyperlipidemia (V18.19, Z83.438) Status: Active Social History Name Dates Details - Status: Name Dates Details Never smoker Never smoker Vital Signs Date Test Result Details [id number]:11 BP Systolic 116 mm[Hg] Status: Comments: Location: [facility]; Position: Sitting BP Diastolic 58 mm[Hg] Status: Comments: Location: [facility]; Position: Sitting Height 64 in Status: Weight 109.3125 lb Status: Body Mass Index Calculated 18.76 kg/m2 Status: Body Surface Area Calculated 1.51 m2 Status: Temperature 99 f Status: Comments: Method: Temporal Heart Rate 84 /min Status: Respiration Rate 16 /min Status: 22-Dec-20189:31 BP Systolic 144 mm[Hg] Status: Comments: Location: [facility]; Position: Sitting BP Diastolic 71 mm[Hg] Status: Comments: Location: [facility]; Position: Sitting Heart Rate 80 /min Status: Comments: Location: [facility]; :30 BP Systolic 145 mm[Hg] Status: Comments: Location: E; Position: Sitting BP Diastolic 74 mm[Hg] Status: Comments: Location: [facility]; Position: Sitting Height 64 in Status: Temperature 98.5 f Status: Comments: Method: Oral Heart Rate 84 /min Status: Comments: Location: [facility]; :45 Physical Findings 8 Status: Comments: PHQ-9 Adult Depression Screening [id number] BP Systolic 107 mm[Hg] Status: Comments: Location: [facility]; Position: Sitting BP Diastolic 58 mm[Hg] Status: Comments: Location: [facility] [place]; Position: Sitting Height 64 in Status: Weight 108 lb Status: Body Mass Index Calculated 18.54 kg/m2 Status: Body Surface Area Calculated 1.51 m2 Status: Temperature 98.9 f Status: Comments: Method: Temporal Heart Rate 96 /min Status: Respiration Rate 16 /min Status: Physical Findings 0 Status: Comments: Alcohol Screen - How many times in the past yr have you had 5 (for M) or 4 (for F) or 4 (for all > 65yrs) or more drinks in a day? Results Date Description Value Details [id number] [QLH] PROTHROMBIN TIME-INR Comments: Reference Range 0.9-1.1Moderate-intensity Warfarin Therapy 2.0-3.0Higher-intensity Warfarin Therapy 3.0-4.0 REPORT COMMENT:FASTING:NO INR 1.7 (Above high threshold) Comments: Reference Range 0.9-1.1Moderate-intensity Warfarin Therapy 2.0-3.0Higher-intensity Warfarin Therapy 3.0-4.0 PT 16.7 {sec} (Above high threshold) Range: 9.0-11.5 Comments: For more information on this test, go to:http://education.[employer].clickTRUE/faq/EKK054 [id number] [O] Urine Dipstick (In Office) Glucose NORMAL (Normal) LEUKOCYTES TRACE NITRITE NEGATIVE (Normal) UROBILINOGEN NORMAL (Normal) PROTEIN TRACE pH 5 (Normal) URINE BLOOD NEGATIVE (Normal) SPECIFIC GRAVITY 1.020 (Normal) KETONES NEGATIVE (Normal) BILIRUBIN NEGATIVE (Normal) COLOR URINE YELLOW (Normal) [id number] [QL] PROTHROMBIN TIME-INR Comments: Reference Range 0.9-1.1Moderate-intensity Warfarin Therapy 2.0-3.0Higher-intensity Warfarin Therapy 3.0-4.0 REPORT COMMENT:FASTING:YES INR 2.6 (Above high threshold) Comments: Reference Range 0.9-1.1Moderate-intensity Warfarin Therapy 2.0-3.0Higher-intensity Warfarin Therapy 3.0-4.0 PT 25.8 {sec} (Above high threshold) Range: 9.0-11.5 Comments: For more information on this test, go to:http://education.[employer]/faq/HLA817 [id number] [[facility]] TSH, 3RD GENERATION Comments: REPORT COMMENT:FASTING:NO TSH 8.37 {MIU/L} (Above high threshold) Range: 0.40-4.50 Plan of Care Name Dates Details Planned Observations [[facility]] TSH, 3RD GENERATION W/REFLEX TO FT4 On: 20-Feb-2019 Intent Planned Goals not documented Planned Encounters Appointment; JACQUES GATICA On: 15-Jan-2019 10:00 Appointment; LUIGI CONCEPCION M.D. On: 15-Jan-2019 11:00 Appointment; TAMIE HINTON M.D. On: 22-Feb-2019 10:00 Interventions Provided Medication Changes* Levothyroxine Sodium 25 MCG Oral Tablet - Start Follow-ups/Referrals* Case Management Referral; To Be Done: 09 Jan 2019 * Pain Management Referral; To Be Done: 09 Jan 2019 Plan* Refer to pain clinic for cont care * pls clarify med list * pls cont f/u with oncology and GI as planned * I will have staff check into palliative care * Return to clinic in 1 months, sooner if needed * Please seek early care if not getting better or getting worse or new change in condition * Please call us back if you don't hear from the office about your labs, imaging or referral in a week. Instructions Name Dates Details Instructions not documented [...] Problem not documented On: 30-Nov-2018 9:30 Appointment; [facility] Encounter Diagnosis: Problem not documented On: 05-Dec-2018 9:00 Appointment; STEVE MARTE PREPARATION ROOM WORKER Encounter Diagnosis: Problem not documented On: 19-Dec-2018 11:00 Appointment; WAYNE MORA D.O. Encounter Diagnosis: Problem not documented On: 22-Dec-2018 9:30 Appointment; TAMIE HINTON M.D. Encounter Diagnosis: Problem not documented On: 09-Jan-2019 10:00
--- NOTE | 2019-01-10 15:40 | Diagnostic Imaging Report ---
Examination: Single AP view of the chest. COMPARISON: CT abdomen and pelvis with contrast 01/02/2019 INDICATION: Fever DISCUSSION: The lungs are hyperinflated. Trace bilateral pleural effusions are suspected. No airspace consolidation or pneumothorax. Increased attenuation over the lower lung zones is a consequence of summation from overlying breast implants. Right subclavian approach implantable cardiac device body projects over the right upper lung. Leads project over the expected regions of the right atrium and right ventricle. Atherosclerotic calcification and tortuosity of the thoracic aorta. Heart size at the upper limits of normal without overt pulmonary edema. No acute osseous abnormality. IMPRESSION: Trace bilateral pleural effusions. Otherwise no acute cardiopulmonary abnormality. Signed by: Dr. Kanu Smith M.D. on 01/10/2019 3:37 PM
[2019-01-10 16:25] LABS: BASOPHILS % 0.2 % (0.0-1.0); EOSINOPHILS % 0.2 % (0.0-6.0); HEMATOCRIT 24.5 % (34.2-44.1); HEMOGLOBIN 7.9 g/dL (12.0-16.0); LYMPHOCYTES # (AUTO) 0.1 (1.0-3.2); LYMPHOCYTES % 3.4 % (18.0-39.1); MEAN CORPUSCULAR HEMOGLOBIN 29.6 pg (28-32); MEAN CORPUSCULAR HGB CONC 32.2 g/dL (31-35); MEAN CORPUSCULAR VOLUME 91.8 fL (81-99); MONOCYTES # (AUTO) 0.3 (0.2-0.8); MONOCYTES % 6.5 % (4.4-11.3); NEUTROPHILS # (AUTO) 3.7 (2.1-6.9); NEUTROPHILS % 88.7 % (38.7-80.0); RED BLOOD COUNT 2.67 x10e6/uL (3.6-5.1); RED CELL DISTRIBUTION WIDTH 19.2 % (11.7-14.4)
[2019-01-10 16:29] LABS: PLATELET COUNT 71 x10e3/uL (140-360)
[2019-01-10 16:41] LABS: ALBUMIN 3.2 g/dL (3.5-5.0); ALBUMIN/GLOBULIN RATIO 1.2 (0.8-2.0); CALCIUM 8.7 mg/dL (8.4-10.2); CREATININE, SERUM 0.93 mg/dL (0.57-1.11)
[2019-01-10 18:45] LABS: BILIRUBIN,URINE NEGATIVE (NEGATIVE); CLARITY,URINE HAZY (CLEAR); COLOR,URINE YELLOW (YELLOW); KETONES,URINE NEGATIVE (NEGATIVE); LEUKOCYTE ESTERASE ,URINE TRACE (NEGATIVE); NITRITE,URINE NEGATIVE (NEGATIVE); PROTEIN,URINE DIPSTICK NEGATIVE (NEGATIVE); URINE UROBILINOGEN 0.2 mg/dL (0.2 - 1)
[2019-01-10 18:46] LABS: AMORPHOUS SEDIMENT,URINE FEW (FEW); BACTERIA,URINE MODERATE /HPF; EPITHELIAL CELLS,URINE MODERATE /LPF; RBC,URINE 0-5 /HPF (0-5)
--- NOTE | 2019-01-10 19:10 | NUR ---
RECEIVED BEDSIDE REPORT FROM RAMÓN JONES DAY SHIFT NURSE.
[2019-01-10] MEDS ORDERED: ONDANSETRON HCL INJ 2MG/ML 2ML 2 MG/ML VIAL IV PRN (19:30)
[2019-01-10] MEDS ORDERED: MORPHINE SULFATE 2 MG/ML SYR 1ML IV PRN (19:30)
[2019-01-10] MEDS ORDERED: CEFTRIAXONE SOD 1 GM/NS 50 ML 50 ML IV SCH (19:30)
[2019-01-10] MEDS ORDERED: MORPHINE SULFATE INJ 4 MG/ML INJ 1ML IV PRN (19:45)
[2019-01-10 20:48] VITALS: BP 99/52
--- NOTE | 2019-01-10 20:48 | NUR ---
patient is a new admit that came from the ER. patient is awake and talking. patient is alert and talking. patient has been helped into the bed. bed is in the lowest position and call akbar is within reach. will continue to monitor patient.
[2019-01-10 22:20] VITALS: BP 117/63
[2019-01-11] VITALS (7 sets, daily range): BP systolic 99–125; BP diastolic 52–64
--- NOTE | 2019-01-11 04:10 | NUR ---
patient's temperature has been rechecked and found to be 99.3. Patient is resting comfortably in bed. no complaints of pain or discomfort voiced by patient. bed is in lowest position and call akbar is within reach. will continue to monitor patient.
[2019-01-11] MEDS ORDERED: MIRALAX17 GM PO (05:08)
[2019-01-11] MEDS ORDERED: PATADAY2.5 ML OP (05:08)
[2019-01-11] MEDS ORDERED: MULTI-VITAMIN1 EACH PO (05:08)
[2019-01-11] MEDS ORDERED: ULTRAM50 MG PO (05:08)
[2019-01-11] MEDS ORDERED: WARFARIN SODIUM3 MG PO (05:08)
[2019-01-11] MEDS ORDERED: FAMOTIDINE20 MG PO (05:08)
[2019-01-11 05:16] LABS: BASOPHILS % 0.3 % (0.0-1.0); EOSINOPHILS % 1.2 % (0.0-6.0); HEMOGLOBIN 7.3 g/dL (12.0-16.0); LYMPHOCYTES # (AUTO) 0.2 (1.0-3.2); LYMPHOCYTES % 5.7 % (18.0-39.1); MEAN CORPUSCULAR VOLUME 90.9 fL (81-99); MONOCYTES # (AUTO) 0.4 (0.2-0.8); NEUTROPHILS # (AUTO) 2.7 (2.1-6.9); NEUTROPHILS % 79.6 % (38.7-80.0); PLATELET COUNT 71 x10e3/uL (140-360); RED BLOOD COUNT 2.43 x10e6/uL (3.6-5.1); RED CELL DISTRIBUTION WIDTH 19.3 % (11.7-14.4)
[2019-01-11 05:50] LABS: ALANINE AMINOTRANSFERASE 11 IU/L (0-55); ALBUMIN 2.7 g/dL (3.5-5.0); ALBUMIN/GLOBULIN RATIO 1.1 (0.8-2.0); ALKALINE PHOSPHATASE 40 IU/L (40-150); ANION GAP 13.8 mmol/L (8-16); BLOOD UREA NITROGEN 32 mg/dL (7-26); BUN/CREATININE RATIO 44 (6-25); CALCIUM 8.4 mg/dL (8.4-10.2); CARBON DIOXIDE 25 mmol/L (22-29); CHLORIDE 98 mmol/L (98-107); CREATININE, SERUM 0.73 mg/dL (0.57-1.11); EST GLOMERULAR FILTRATION RATE > 60 ML/MIN (60-); GLUCOSE 98 mg/dL (74-118); POTASSIUM 3.8 mmol/L (3.5-5.1); SODIUM 133 mmol/L (136-145)
[2019-01-11 05:54] LABS: HEMATOCRIT 22.1 % (34.2-44.1)
--- NOTE | 2019-01-11 05:55 | NUR ---
Received medication list from patient. Medications have been entered into computer. Unable to get a hold of doctor for permission to renew home medication list. Will continue to monitor patient.
--- NOTE | 2019-01-11 06:00 | NUR ---
received lab result from lab. patients hemoglobin and hematocrit are low this morning. Call placed to MD's phone. Unable to get a hold of MD. Will continue to monitor patient.
--- NOTE | 2019-01-11 06:34 | Diagnostic Imaging Report ---
EXAMINATION: CHEST SINGLE (PORTABLE) INDICATION: ^fever ^[id number] ^[id number] ^Y COMPARISON: 01/10/2019 FINDINGS: AP view TUBES and LINES: Stable dual-lead right chest wall cardiac device. LUNGS: Lungs are well inflated. Central vascular congestion and suspected mild interstitial edema. PLEURA: No significant pleural effusion or pneumothorax. HEART AND MEDIASTINUM: The cardiac silhouette is borderline in size. BONES AND SOFT TISSUES: No acute osseous lesion. Soft tissues are unremarkable. UPPER ABDOMEN: No free air under the diaphragm. IMPRESSION: Central vascular congestion and mild interstitial edema. Signed by: Dr. Mendez Bean MD on 01/11/2019 6:31 AM
--- NOTE | 2019-01-11 06:55 | NUR ---
Report received and walking rounds done. Patient is resting in bed in NAD. Caregiver at the bedside with multiple questions for MD. POC discussed. Bed in lowest position, locked and call akbar within reach.
--- NOTE | 2019-01-11 06:58 | NUR ---
report given to day nurse. patient is resting comfortably in bed. no complaints of pain or discomfort noted. bed is in lowest position and call akbar is within reach.
--- NOTE | 2019-01-11 07:09 | NUR ---
Dr Waller answering service notified of routine consultation.
--- NOTE | 2019-01-11 07:42 | NUR ---
Dr. Waller returned page and was updated on patient's condition including Hemoglobin 7.3. Orders only received for IV fluids at this time.
[2019-01-11] MEDS ORDERED: D5.45%NS/KCL 20MEQ 1,000 ML IV SCH (07:45)
[2019-01-11 08:08] LABS: BAND NEUTROPHILS % (MANUAL) 4 %; EOSINOPHILS % (MANUAL) 1 % (0-7); LYMPHOCYTES % (MANUAL) 2 % (19-48); METAMYELOCYTES % (MANUAL) 1 % (0-0); MONOCYTES % (MANUAL) 6 % (3.4-9.0); MYELOCYTES % (MANUAL) 1 % (0-0); NEUTROPHILS % (MANUAL) 83 % (40-74)
[2019-01-11 08:09] LABS: ANISOCYTOSIS SLIGHT; HYPOCHROMASIA MODERATE; PLATELET ESTIMATE SLIGHTLY DECREASED; PLATELET MORPHOLOGY COMMENT NORMAL; RBC MORPHOLOGY COMMENT ABNORMAL
[2019-01-11] MEDS ORDERED: POTASSIUM CHLORIDE 10 MEQ in DEXTROSE 5%/0.45% SOD CHL 1,000 ML IV SCH (09:00)
--- NOTE | 2019-01-11 09:00 | NUR ---
Spoke to DSr. Thomas regarding restarting home medications. Per MD he will review labs and restart appropriate medications. requirements analyst and patient aware.
[2019-01-11] MEDS ORDERED: LEVOTHYROXINE SODIUM 75 MCG TAB PO SCH (09:30)
[2019-01-11] MEDS ORDERED: TRAMADOL HCL 50 MG TAB PO PRN (09:30)
[2019-01-11 10:03] LABS: INR 1.24; PROTHROMBIN TIME 16.7 seconds (11.9-14.5)
[2019-01-11] MEDS: HYDROCODONE/APAP 5MG-325MG TAB PO PRN ×2 (10:12→17:30)
[2019-01-11] MEDS: OXYBUTYNIN CHLORIDE 5 MG TAB PO SCH (10:42)
[2019-01-11] MEDS: SODIUM CHLORIDE 0.9% 1000ML 1,000 ML IV SCH (10:42)
[2019-01-11] MEDS: PANTOPRAZOLE SOD 40 MG TABEC PO SCH (10:43)
[2019-01-11] MEDS: LEVOTHYROXINE SODIUM 50 MCG TAB PO SCH (10:43)
[2019-01-11] MEDS: CEFEPIME 2 GM/NS 0.9% 100 ML 100 ML IV SCH ×2 (10:44→22:01)
--- NOTE | 2019-01-11 11:00 | NUR ---
Patient transferred to room 294 via wheelchair with all belongings in stable condition.
--- NOTE | 2019-01-11 11:00 | NUR ---
PATIENT ARRIVED TO ROOM 294, SHE IS AAOX3, IN STABLE CONDITION. PAIN AT A TOLERABLE LEVEL. PATIENT ORIENTED TO ROOM AND POLICIES. CALL LIGHT WITHIN REACH. BED IN THE LOWEST POSITION.
--- NOTE | 2019-01-11 12:09 | Diagnostic Imaging Report ---
EXAM: CT Chest WITHOUT contrast 01/11/2019 9:22 AM INDICATION: Fever, lethargy COMPARISON: Chest x-ray, 01/11/2019 TECHNIQUE: Chest was scanned utilizing a multidetector helical scanner from the lung apex through the level of the adrenal glands without administration of IV contrast. Absence of intravenous contrast decreases sensitivity for detection of lymphadenopathy and vascular pathology. Coronal and sagittal reformations were obtained. Routine protocol was performed. Dose modulation, iterative reconstruction, and/or weight based adjustment of the mA/kV was utilized to reduce the radiation dose to as low as reasonably achievable. IV CONTRAST: None RADIATION DOSE: Total DLP: 269.19 mGy*cm Estimated effective dose: (DLP x 0.014 x size factor) mSv COMPLICATIONS: None FINDINGS: LINES/ TUBES: Intracardiac leads related to right anterior chest implanted cardiac device. LUNGS AND AIRWAYS: Moderate centrilobular thickening suggesting emphysema. Nonspecific 3 mm left upper lobe nodule (series 2, image 30). There is bilateral perihilar bronchial wall thickening which may be seen with bronchitis or reactive airway disorder. PLEURA: Small bilateral pleural effusions. No pneumothorax or pleural calcification. HEART AND MEDIASTINUM: The thyroid gland is normal. No mediastinal, hilar or axillary lymphadenopathy. There are scattered solitary mediastinal nodes likely reactive. There is mild cardiomegaly.. There is no pericardial effusion. The thoracic aorta is atherosclerotic without dilatation. The main pulmonary artery is dilated measuring 3.5 cm. UPPER ABDOMEN: Included portions of the liver, spleen, adrenals and upper pole kidneys show no focal abnormality. BONES: No acute or suspicious bony lesion. There is a marked kyphosis of the upper thoracic spine and deformity of the midportion of the sternum, likely posttraumatic. SOFT TISSUES: Superficial surrounding soft tissue shows bilateral breast implants with capsular calcification on the right. Implanted cardiac device is seen in the anterior soft tissues of the upper right chest. IMPRESSION: 1. Moderate changes of emphysema. Perihilar bronchial wall thickening may be seen with bronchitis. 2. Dilatation of the main pulmonary artery suggesting pulmonary hypertension. 3. No focal pulmonary consolidation. Small bilateral pleural effusions. Mild cardiomegaly. 4. Nonspecific 3 mm left upper lobe nodule. Recommend follow-up noncontrast chest CT in one year to assess stability. Signed by: Dr. Alan Edwards M.D. on 01/11/2019 12:05 PM
[2019-01-11] MEDS: DICYCLOMINE HCL 10 MG CAP PO SCH ×2 (14:43→22:01)
--- NOTE | 2019-01-11 15:43 | NUR ---
Nutrition Intervention Note RD Recommendation(s) for Physician: -Rec to liberalize diet to regular to promote PO intake -Rec Ensure Enlive TID to promote protein-calorie intake -Encourage PO and hydration -The patient meets criteria for MODERATE protein-calorie malnutrition. Plan of Care: RD following, monitoring for tolerance and adequacy, ONS rec Nutrition reason for involvement: Low BMI RD Assessment 01/11- Chart reviewed. Labs and meds reviewed. 83yo F, who was admitted for fever. 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 Visited pt in the room. Pt reported poor appetite with decreased meal intake for unknown amount of time. However, she was drinking Ensure 3x a day to keep her from losing too much weight. Pt stated I want to vomit when I see foods sometimes. No nausea or vomiting today. LBM 01/11. Pt denied any chewing or swallowing difficulty. Pt requested for Ensure. RAMÓN Rodriguez was aware of new diet order. Will continue to monitor and follow. Principal Problems/Diagnoses: anemia, UTI, immuosuppression fever PMH: No H&P in chart GI: abdomen soft, flatus present Skin: No pressure wound noted Labs: Na 133 L, BUN 32 H, Meds: abx, synthroid, protonix, NaCl Ht: 64in Wt: 104.25lb BMI: 17.9kg/m2 IBW: 120lb Malnutrition Evaluation (01/11/2019) The patient meets criteria for MODERATE protein-calorie malnutrition. Energy intake: <75% of estimated energy requirements for >1 month Weight loss: >5% in 1 month (Acute) Fat loss: N/A Muscle loss: Moderate temporal depression Supporting Evidence: Fluid accumulation: n/a Functional Status: no changes Nutrition Prescription (Diet Order): cardiac diet Estimated Nutritional Needs: Calories: 1410 1645kcal(30-35kcal/kg/d) Weight used : Current BW Protein: 70 94g (1.5-2g/kg/d) Weight used: Current BW Diet Adequacy: Not meeting calorie needs, Not meeting protein needs Diet Education Needs Assessment: Diet education not indicated. Nutrition Care Level: mod Nutrition Diagnosis: Underweight related to acute illness as evidenced by poor intake, decreased appetite and fat loss. Goal: Patient will meet 75-100% of estimated needs by follow up Progress: N/A Interventions: General healthful diet, Commercial beverage Monitoring/Evaluation: Total energy intake, Total protein intake, diet, Liquid supplement, Weight change Signed: Sis Go, MS, RD, LD
[2019-01-11] MEDS: GABAPENTIN 100 MG CAP PO SCH (16:35)
[2019-01-11] MEDS: FAMOTIDINE 20 MG TAB PO SCH (16:35)
--- NOTE | 2019-01-11 19:15 | NUR ---
Patient visited in room during nursing rounds. Patient alert and oriented x3. No distress or discomfort noted. On IVF (NS @ 50ml/hr). Call akbar within reach. Will continue to monitor closely.
--- NOTE | 2019-01-11 19:26 | NUR ---
REPORT GIVEN TO ONCOMING NURSE, WALKING ROUNDS DONE. PATIENT IS RESTING IN BED. NO ACUTE DISTRESS NOTED. CALL LIGHT WITHIN REACH. BED IN THE LOWEST POSITION.
[2019-01-12] VITALS (9 sets, daily range): BP systolic 107–126; BP diastolic 56–72
[2019-01-12] MEDS: HYDROCODONE/APAP 5MG-325MG TAB PO PRN ×4 (00:10→21:14)
--- NOTE | 2019-01-12 05:31 | Consultation ---
DATE OF CONSULTATION: CONSULTATION REQUESTED BY: Alexx Thomas MD. CONSULTING PHYSICIAN: Felisha Waller MD. REASON FOR CONSULTATION: Followup of carcinoma of the esophagus. HISTORY OF PRESENT ILLNESS: Thank you very kindly Dr. Thomas for letting me participate in the care of this pleasant 83-year-old female, who is known to me. She was sent over to the emergency room from my office when she presented for her weekly dose of chemotherapy. She was complaining of feeling poorly, was shaking and having chills, temperature in the office was 101.3. The patient has history of carcinoma of the esophagus for which she has been receiving concomitant radiation along with Taxol-cisplatin chemotherapy weekly. She started having chills and fever for a day before she was admitted to the hospital. There was no history of urinary symptoms. She is having cough, but it was nonproductive. She has had chronic back pain, which has been bothering her. Additional details of the history are documented in the chart. She was evaluated in the emergency room and I spoke to the ER doctor recommending IV hydration, cultures, and intravenous antibiotic therapy in view of her decreased white count accompanied with chills and fever. This morning, she was feeling a little better. Temperature has been above 100, but less than 101. PHYSICAL EXAMINATION: HEENT: Conjunctivae are little pale. Mucous membranes are dry. There is no icterus. NECK: There is no palpable peripheral adenopathy. LUNGS: Reveals prolonged expiration. No area of consolidation is noted. CARDIAC: Heart size appears within normal limits. GI: Abdomen is soft. EXTREMITIES: Free of edema. No areas of bone tenderness are noted. LABORATORY DATA: Labs were reviewed and chest x-ray was reviewed, suggestive of bronchopneumonia type of picture. IMPRESSION: 1. Bronchopneumonia. 2. Carcinoma of the esophagus, on chemoradiation therapy. 3. Leukopenia secondary to chemoradiation. 4. Dehydration. 5. Chronic back pain. I discussed the case with Dr. Thomas. Recommend hydration, supportive care, and intravenous antibiotic therapy with the followup chest x-ray in a few days. Felisha Waller MD [facility]/MODL /[id number]
[2019-01-12 06:01] LABS: BASOPHILS % 0.5 % (0.0-1.0); EOSINOPHILS # (AUTO) 0.1 (0.0-0.4); EOSINOPHILS % 2.7 % (0.0-6.0); HEMOGLOBIN 7.1 g/dL (12.0-16.0); LYMPHOCYTES # (AUTO) 0.2 (1.0-3.2); LYMPHOCYTES % 12.6 % (18.0-39.1); MEAN CORPUSCULAR HEMOGLOBIN 29.3 pg (28-32); MEAN CORPUSCULAR VOLUME 94.6 fL (81-99); MONOCYTES # (AUTO) 0.3 (0.2-0.8); MONOCYTES % 14.3 % (4.4-11.3); NEUTROPHILS # (AUTO) 1.2 (2.1-6.9); NEUTROPHILS % 68.3 % (38.7-80.0); PLATELET COUNT 82 x10e3/uL (140-360); RED BLOOD COUNT 2.42 x10e6/uL (3.6-5.1); RED CELL DISTRIBUTION WIDTH 19.8 % (11.7-14.4)
[2019-01-12 06:17] LABS: HEMATOCRIT 22.9 % (34.2-44.1)
[2019-01-12 06:18] LABS: MAGNESIUM 1.9 MG/DL (1.3-2.1); PHOSPHORUS 2.9 MG/DL (2.3-4.7)
[2019-01-12] MEDS: FAMOTIDINE 20 MG TAB PO SCH ×2 (06:27→16:37)
[2019-01-12] MEDS: PANTOPRAZOLE SOD 40 MG TABEC PO SCH (06:27)
[2019-01-12] MEDS: LEVOTHYROXINE SODIUM 50 MCG TAB PO SCH (06:27)
[2019-01-12] MEDS: SODIUM CHLORIDE 0.9% 1000ML 1,000 ML IV SCH (06:35)
[2019-01-12 06:42] LABS: ANION GAP 11.1 mmol/L (8-16); BLOOD UREA NITROGEN 23 mg/dL (7-26); BUN/CREATININE RATIO 32 (6-25); CALCIUM 7.8 mg/dL (8.4-10.2); CARBON DIOXIDE 27 mmol/L (22-29); CHLORIDE 104 mmol/L (98-107); CREATININE, SERUM 0.71 mg/dL (0.57-1.11); EST GLOMERULAR FILTRATION RATE > 60 ML/MIN (60-); GLUCOSE 100 mg/dL (74-118); POTASSIUM 4.1 mmol/L (3.5-5.1); SODIUM 138 mmol/L (136-145)
--- NOTE | 2019-01-12 06:48 | NUR ---
Called answering service (for Dr. Waller) for purpose of reporting critical lab result: WBC = 1.82. And to report Hbg of 7.1. Awaiting on MD call back.
[2019-01-12 06:49] LABS: THYROID STIMULATING HORMONE 1.672 uIU/mL (0.350-4.940)
--- NOTE | 2019-01-12 07:35 | NUR ---
PATIENT IN BED RESTING WITH NO RESPIRATORY DISTRESS. IV FLUID INFUSING ORDERED. BED IN LOWER POSITION, CALL LIGHT AT REACH.
[2019-01-12 07:50] LABS: FOLATE 35.4 ng/mL (7.0-15.4)
[2019-01-12 08:33] LABS: ANISOCYTOSIS SLIGHT; EOSINOPHILS % (MANUAL) 3 % (0-7); LYMPHOCYTES % (MANUAL) 9 % (19-48); MONOCYTES % (MANUAL) 10 % (3.4-9.0); NEUTROPHILS % (MANUAL) 78 % (40-74); PLATELET ESTIMATE MODERATELY DECREASED; PLATELET MORPHOLOGY COMMENT NORMAL; RBC MORPHOLOGY COMMENT ABNORMAL
[2019-01-12] MEDS: CEFEPIME 2 GM/NS 0.9% 100 ML 100 ML IV SCH (09:00)
[2019-01-12] MEDS: GABAPENTIN 100 MG CAP PO SCH ×2 (09:14→17:19)
[2019-01-12] MEDS: DICYCLOMINE HCL 10 MG CAP PO SCH ×3 (09:14→21:13)
[2019-01-12] MEDS: OXYBUTYNIN CHLORIDE 5 MG TAB PO SCH (09:14)
[2019-01-12] MEDS: MULTIVITAMINS/MINERALS TAB PO SCH (09:14)
--- NOTE | 2019-01-12 10:20 | NUR ---
SPOKE WITH MD REGARDING ABNORMAL LAB RESULTS, NEW ORDER RECEIVED.
[2019-01-12] MEDS: FILGRASTIM 300 MCG/ML VIAL SC SCH (10:45)
--- NOTE | 2019-01-12 12:29 | NUR ---
SOCIAL WORK INITIAL ASSESSMENT Training Lead to bedside to discuss plan of care with patient/family. CM/SW role and care transitions discussed. Anticipated discharge plan discussed along with duration of care. CM/SW discussed patients right to make decisions in care. CM/SW work hours given. Patient lives: IN HOUSE WITH DAUGHTER Admit/Transfer: VIA ED POA/Emergency contact: YADIRA OLMEDO [phone] Current/Previous Home Health: YADIRA OLMEDO IS PAID PROVIDER 12/06 PCP/Follow-up Care: AGUSTINA Current/Previous DME: JEANE Other Services: CHEMO, ASKING FOR PAIN MANAGEMENT Employment Status: RETIRED Areas of Concerns: REFERRED 2 LOCAL [facility] THAT DO PAIN MANAGEMENT Referral Needs: NA Education Needs: NONE IMM/HERNANDEZ given and signed (if applicable): IMM Goal for discharge: RETURN HOME CM/SW left business card at the bedside with contact information. Name and number was also written on the patients whiteboard. Patient verbalized understanding of discussion. CM will follow-up with ongoing discharge and transition of care needs.
[2019-01-12] MEDS ORDERED: DIPHENHYDRAMINE HCL INJ 50 MG/ML VIAL IV NR (14:15)
[2019-01-12] MEDS ORDERED: SODIUM CHLORIDE 0.9% 250ML 250 ML IV NR (14:15)
[2019-01-12] MEDS ORDERED: FUROSEMIDE INJ 10 MG/ML 2 ML VIAL IV SCH (14:30)
[2019-01-12] MEDS ORDERED: DEXAMETHASONE SOD PHOS 10 MG/1 ML VIAL IV NR (14:30)
[2019-01-12] MEDS: ACETAMINOPHEN 325 MG TAB PO PRN (15:10)
--- NOTE | 2019-01-12 15:20 | NUR ---
hgb too low as per Pt , will follow up on monday Addendum: 01/12/19 at 1522 by Alexx Crockett PTA Amended: Links added.
--- NOTE | 2019-01-12 16:05 | NUR ---
PATIENT NOTED WITH TEMPERATURE OF 101.5, TYLENOL ADMINISTERED ORDERED. TEMPERATURE RECHECKED WITH THE READING OF 100.1 PATIENT HAS AN ORDER FOR BLOOD TRANSFUSION, BLOOD IS READY. TEMPERATURE STILL ELEVATED. WILL CLOSELY MONITOR PATIENT.
[2019-01-12] MEDS: AZITHROMYCIN 250MG/NS 100 ML 100 ML IV SCH (16:37)
[2019-01-12] MEDS ORDERED: SODIUM CHLORIDE 0.9% 250ML 250 ML ONE ×2 (18:00→23:36)
[2019-01-12] MEDS: ACETAMINOPHEN 325 MG TAB PO SCH (18:04)
--- NOTE | 2019-01-12 18:25 | NUR ---
TEMPERATURE IS 97.7. FIRST UNIT OF BLOOD STATED. STAYED WITH PATIENT FOR THE FIRST 15 MINUTES, NO ADVERSE REACTION OBSERVED. WILL CLOSELY MONITOR PATIENT.
[2019-01-12] MEDS: PIPER-TAZ 3.375 GM 50 ML IV SCH (21:32)
--- NOTE | 2019-01-12 23:40 | NUR ---
2 0f 2 units of PRBC'S transfusing at this time,patient tolerated well. No reaction noted. Will continue to monitor.
[2019-01-13] VITALS (8 sets, daily range): BP systolic 115–142; BP diastolic 55–70
[2019-01-13] MEDS: HYDROCODONE/APAP 5MG-325MG TAB PO PRN ×2 (02:43→11:20)
[2019-01-13] MEDS: LEVOTHYROXINE SODIUM 50 MCG TAB PO SCH (05:18)
[2019-01-13] MEDS: PIPER-TAZ 3.375 GM 50 ML IV SCH ×3 (05:18→20:58)
[2019-01-13] MEDS: ACETAMINOPHEN 325 MG TAB PO SCH ×2 (05:19→17:15)
[2019-01-13 05:57] LABS: BASOPHILS % 0.5 % (0.0-1.0); EOSINOPHILS # (AUTO) 0.1 (0.0-0.4); EOSINOPHILS % 1.7 % (0.0-6.0); HEMATOCRIT 32.2 % (34.2-44.1); HEMOGLOBIN 10.6 g/dL (12.0-16.0); LYMPHOCYTES # (AUTO) 0.2 (1.0-3.2); LYMPHOCYTES % 3.5 % (18.0-39.1); MEAN CORPUSCULAR HEMOGLOBIN 29.5 pg (28-32); MEAN CORPUSCULAR HGB CONC 32.9 g/dL (31-35); MEAN CORPUSCULAR VOLUME 89.7 fL (81-99); MONOCYTES # (AUTO) 0.5 (0.2-0.8); NEUTROPHILS # (AUTO) 4.5 (2.1-6.9); NEUTROPHILS % 78.8 % (38.7-80.0); PLATELET COUNT 87 x10e3/uL (140-360); RED BLOOD COUNT 3.59 x10e6/uL (3.6-5.1); RED CELL DISTRIBUTION WIDTH 18.5 % (11.7-14.4)
[2019-01-13 06:20] LABS: ANION GAP 12.2 mmol/L (8-16); BLOOD UREA NITROGEN 21 mg/dL (7-26); BUN/CREATININE RATIO 30 (6-25); CALCIUM 8.1 mg/dL (8.4-10.2); CARBON DIOXIDE 28 mmol/L (22-29); CHLORIDE 101 mmol/L (98-107); EST GLOMERULAR FILTRATION RATE > 60 ML/MIN (60-); GLUCOSE 97 mg/dL (74-118); POTASSIUM 3.2 mmol/L (3.5-5.1); SODIUM 138 mmol/L (136-145)
--- NOTE | 2019-01-13 07:08 | NUR ---
Report given to oncoming nurse,walking round done.
--- NOTE | 2019-01-13 07:18 | NUR ---
PATIENT IN BED RESTING WITH NO RESPIRATORY DISTRESS. SKIN TEAR NOTED TO RIGHT ANKLE, PATIENT STATED THAT SHE SCRATCHED HERSELF; SHE ALSO STATED THAT SHE HAS BEEN HAVING DIARRHEA, REDNESS NOTED TO BUTTOCKS. BED IN LOWER POSITION, CALL LIGHT AT REACH.
[2019-01-13] MEDS: PANTOPRAZOLE SOD 40 MG TABEC PO SCH (07:50)
[2019-01-13] MEDS: FAMOTIDINE 20 MG TAB PO SCH ×2 (07:50→16:30)
[2019-01-13 08:42] LABS: BAND NEUTROPHILS % (MANUAL) 19 %; EOSINOPHILS % (MANUAL) 2 % (0-7); LYMPHOCYTES % (MANUAL) 3 % (19-48); MONOCYTES % (MANUAL) 4 % (3.4-9.0); NEUTROPHILS % (MANUAL) 72 % (40-74); PLATELET ESTIMATE ADEQUATE; PLATELET MORPHOLOGY COMMENT NORMAL; RBC MORPHOLOGY COMMENT NORMAL
[2019-01-13] MEDS: DICYCLOMINE HCL 10 MG CAP PO SCH ×3 (09:13→20:58)
[2019-01-13] MEDS: GABAPENTIN 100 MG CAP PO SCH ×2 (09:13→17:22)
[2019-01-13] MEDS: MULTIVITAMINS/MINERALS TAB PO SCH (09:13)
[2019-01-13] MEDS: OXYBUTYNIN CHLORIDE 5 MG TAB PO SCH (09:13)
--- NOTE | 2019-01-13 09:15 | NUR ---
CALL PLACED TO MD REGARDING ABNORMAL LAB RESULT AND DIARRHEA, AWAITING CALL BACK.
[2019-01-13] MEDS: SODIUM CHLORIDE 0.9% 1000ML 1,000 ML IV SCH (10:27)
[2019-01-13] MEDS: FILGRASTIM 300 MCG/ML VIAL SC SCH (11:05)
--- NOTE | 2019-01-13 11:58 | NUR ---
MD IN TO SEE PATIENT, NOTIFIED OF ABNORMAL LAB RESULT, DIARRHEA , AND STAGE 2 TO SACRUM DUE TO MULTIPLE STOOLS. NEW NEW ORDERS RECEIVED.
[2019-01-13] MEDS ORDERED: CHOLESTYRAMINE 4 GM PACKET PO PRN (12:00)
[2019-01-13] MEDS ORDERED: POTASSIUM CHLORIDE 10MEQ EA PO NR (12:00)
[2019-01-13] MEDS: CHOLESTYRAMINE 4 GM PACKET PO SCH ×2 (12:40→18:38)
[2019-01-13] MEDS: VANCOMYCIN 250MG/5ML ORAL SOLN PO SCH ×3 (12:45→20:58)
[2019-01-13] MEDS: AZITHROMYCIN 250MG/NS 100 ML 100 ML IV SCH (15:00)
--- NOTE | 2019-01-13 15:41 | NUR ---
STOOL SPECIMEN COLLECTED AND SENT TO THE LAB. PATIENT OUT OF BED TO CHAIR, CALL LIGHT AT REACH.
[2019-01-13] MEDS: BALSAM PERU/CASTOR OIL 60 GM OINT...G. TP SCH (17:34)
--- NOTE | 2019-01-13 18:00 | NUR ---
PATIENT NOTED WITH TEMP OF 99.8, TYLENOL GIVEN. TEMP RECHECKED WITH THE READING OF 98.2. WILL CLOSELY MONITOR.
--- NOTE | 2019-01-13 19:37 | NUR ---
PT IS RESTING IN BED. NO RESPIRATORY DISTRESS NOTED. BED IN THE LOWEST POSITION, LOCKED, AND CALL LIGHT WITHIN REACH. WILL CONTINUE TO MONITOR.
[2019-01-14] VITALS (8 sets, daily range): BP systolic 129–163; BP diastolic 59–70
--- NOTE | 2019-01-14 03:01 | History and Physical ---
CHIEF COMPLAINT: Fever and chills and anemia. HISTORY: The patient is an 83-year-old female, on anticoagulant therapy, Coumadin, has atrial fibrillation, hypertension, dyslipidemia, rheumatoid arthritis, and history of esophageal cancer. The patient is pending for chemotherapy. However, when she came to see Dr. Felisha Waller, her fever was 101 and she was experiencing chills. The patient was brought into the hospital for further evaluation. Here, the patient had hemoglobin and hematocrit of 7.9 and 24.5. The patient's WBC is 4.13. The patient is otherwise stable. She is not in any distress. Chest x-ray showed vascular congestion. Urinalysis showed trace leukocyte esterase and moderate bacteria. The patient is otherwise stable. She did have rectal bleed from previous recent colonoscopy. She does have diverticulosis. No gross bleeding at this time. PAST MEDICAL HISTORY: Atrial fibrillation, on anticoagulant therapy, dyslipidemia, hypertension, osteoporosis, rheumatoid arthritis, hypothyroidism, . PAST SURGICAL HISTORY: Hysterectomy, permanent pacemaker, breast surgery, mastectomy, and lumpectomy. SOCIAL HISTORY: The patient lived with her family. She does have a caregiver. She does not smoke or use alcohol. No recreational drugs. ALLERGIES: NO KNOWN ALLERGIES. HOME MEDICATIONS: List is reviewed. The patient is , enalapril, Pepcid, gabapentin, hydralazine, Liebenthal, Arava, levothyroxine, metoprolol succinate, Pataday eye drops, omeprazole, oxybutynin, pravastatin, prednisone, tramadol, Dyazide, and warfarin 5 mg daily. REVIEW OF SYSTEMS: The patient seemed to be comfortable. PHYSICAL EXAMINATION: VITAL SIGNS: Temperature is 101, blood pressure 97/49, pulse rate is 80, and respirations 20. GENERAL: The patient seemed fatigued, but she is not in any distress. HEENT: Normocephalic and atraumatic. Sclerae anicteric. NECK: Supple grossly. PULMONARY: Diminished breath sounds at the bases with possible early rales. CARDIOVASCULAR: S1 and S2, . ABDOMEN: Soft. No distention. EXTREMITIES: No gross cyanosis or edema. NEUROLOGIC: No gross focal deficits. LABORATORY DATA: Sodium is 133, potassium 3.8, chloride 98, bicarb 25, BUN 32, creatinine 0.7, and glucose 98. WBC 3.3, hemoglobin 7.3, hematocrit 22.1, and platelets 371. IMPRESSION: 1. Pancytopenia associated with fever. There is no neutropenia. The patient may have urinary tract infection, may have pneumonia. This is a sign of sepsis. There is no shock. The patient's blood pressure is stabilized now. 2. History of GI tract and throat cancer. Pending on evaluation by Dr. Felisha Waller. 3. Dehydration. 4. Fever as above. PLAN: CT of the chest without contrast. We will get echocardiogram to document the ejection fraction. There is some vascular congestion on the chest. I will resume some home medication, but hold all blood pressure medication. PT/INR for evaluation of the patient on warfarin. Antibiotic, cefepime 2 g IV q.12 hours and on azithromycin 500 mg daily. We will monitor the patient closely at this time. MD ENID Valdez/ENRRIQUE /[id number]
[2019-01-14] MEDS: PIPER-TAZ 3.375 GM 50 ML IV SCH ×2 (04:58→13:47)
[2019-01-14] MEDS: ACETAMINOPHEN 325 MG TAB PO PRN ×2 (04:58→22:07)
[2019-01-14] MEDS: VANCOMYCIN 250MG/5ML ORAL SOLN PO SCH ×3 (04:58→22:00)
[2019-01-14] MEDS: LEVOTHYROXINE SODIUM 50 MCG TAB PO SCH (04:58)
[2019-01-14] MEDS: HYDROCODONE/APAP 5MG-325MG TAB PO PRN ×2 (05:08→14:51)
[2019-01-14 06:10] LABS: BASOPHILS # (AUTO) 0.1 (0.0-0.1); BASOPHILS % 1.1 % (0.0-1.0); EOSINOPHILS # (AUTO) 0.1 (0.0-0.4); EOSINOPHILS % 0.8 % (0.0-6.0); HEMATOCRIT 32.3 % (34.2-44.1); HEMOGLOBIN 10.7 g/dL (12.0-16.0); LYMPHOCYTES # (AUTO) 0.3 (1.0-3.2); LYMPHOCYTES % 4.1 % (18.0-39.1); MEAN CORPUSCULAR HEMOGLOBIN 30.2 pg (28-32); MEAN CORPUSCULAR HGB CONC 33.1 g/dL (31-35); MEAN CORPUSCULAR VOLUME 91.2 fL (81-99); MONOCYTES # (AUTO) 0.7 (0.2-0.8); MONOCYTES % 10.2 % (4.4-11.3); NEUTROPHILS # (AUTO) 4.4 (2.1-6.9); NEUTROPHILS % 68.6 % (38.7-80.0); PLATELET COUNT 93 x10e3/uL (140-360); RED BLOOD COUNT 3.54 x10e6/uL (3.6-5.1); RED CELL DISTRIBUTION WIDTH 18.7 % (11.7-14.4)
[2019-01-14 06:30] LABS: ANION GAP 10.9 mmol/L (8-16); BLOOD UREA NITROGEN 16 mg/dL (7-26); BUN/CREATININE RATIO 25 (6-25); CARBON DIOXIDE 25 mmol/L (22-29); CHLORIDE 103 mmol/L (98-107); CREATININE, SERUM 0.65 mg/dL (0.57-1.11); EST GLOMERULAR FILTRATION RATE > 60 ML/MIN (60-); GLUCOSE 103 mg/dL (74-118); POTASSIUM 3.9 mmol/L (3.5-5.1); SODIUM 135 mmol/L (136-145)
[2019-01-14] MEDS: MULTIVITAMINS/MINERALS TAB PO SCH (09:29)
[2019-01-14] MEDS: FAMOTIDINE 20 MG TAB PO SCH ×2 (09:29→16:33)
[2019-01-14] MEDS: GABAPENTIN 100 MG CAP PO SCH ×2 (09:29→18:30)
[2019-01-14] MEDS: DICYCLOMINE HCL 10 MG CAP PO SCH ×3 (09:29→22:00)
[2019-01-14] MEDS: BALSAM PERU/CASTOR OIL 60 GM OINT...G. TP SCH ×2 (09:29→18:30)
[2019-01-14] MEDS: OXYBUTYNIN CHLORIDE 5 MG TAB PO SCH (09:29)
[2019-01-14] MEDS: PANTOPRAZOLE SOD 40 MG TABEC PO SCH (09:29)
[2019-01-14] MEDS: CHOLESTYRAMINE 4 GM PACKET PO SCH ×2 (10:14→18:30)
[2019-01-14 11:04] LABS: EOSINOPHILS % (MANUAL) 1 % (0-7); LYMPHOCYTES % (MANUAL) 5 % (19-48); MONOCYTES % (MANUAL) 7 % (3.4-9.0); NEUTROPHILS % (MANUAL) 87 % (40-74)
[2019-01-14 11:05] LABS: ANISOCYTOSIS S; OVALOCYTES FEW; PLATELET ESTIMATE SLIGHTLY DECREASED; PLATELET MORPHOLOGY COMMENT NORMAL; RBC MORPHOLOGY COMMENT ABNORMAL
--- NOTE | 2019-01-14 13:29 | NUR ---
WOUND CARE CONSULTATION: INITIAL EVALUATION Patient admitted from Home to ER for Anemia, UTI, Fever and Immunosuppression, Diarrhea. HX: Atrial fibrillation, on anticoagulant therapy, dyslipidemia, hypertension, osteoporosis, rheumatoid arthritis, hypothyroidism, Hysterectomy, Permanent Pacemaker, breast surgery, mastectomy, lumpectomy. LABS: WBC6.39 HGB10.7 HCT32.3 NEUT%68.6 - C-Diff: negative. - Wound Care Consulted for redness to Sacral/ Gluteal Areas with possible stage II ulcer. PATIENT VISIT: - Patient in bed and in good spirits with primary manager of marketing at bedside. - Josh Score 20 - Alternating Pressure Mattress in place. - Conservative PUP Active. - Upon assessment, noted redness to gaurav-rectal area, blanchable rubor, speckled redness at edges consistent with incontinence related dermatitis. No redness to sacrum. No pressure or shear friction related injuries identified. - Patient able to turn self. - Diapered. IMPRESSION: 1. Perirectal Area - Incontinence Related Dermatitis RECOMMENDATION: 1. Gaurav-Rectal Area - Incontinence Related Dermatitis. - Wash area with Mild Soap and Water Twice a day and PRN Soiling then Pat Dry Thoroughly. - Apply Lantiseptic Cream Twice a Day and PRN soiling. 2. Turn and Reposition Every 2 Hours. 3. Continue Alternating Pressure Air Mattress. 4. Encourage Patient to get out of bed to chair 2-3 times a day. Thank you for consulting with Wound Care. Addendum: 01/14/19 at 1342 by Oren Fisher RN Amended: Links added.
[2019-01-14] MEDS: LANOLIN 4.5 OZ OINT TP SCH (15:18)
[2019-01-14] MEDS: AZITHROMYCIN 250MG/NS 100 ML 100 ML IV SCH (15:18)
--- NOTE | 2019-01-14 15:23 | NUR ---
EXPLAINED IMM LETTER. PT VERBALIZED UNDERSTANDING. IMM LETTER WAS SIGNED AND COPY TO PT AND COPY TO CHART.
--- NOTE | 2019-01-14 19:15 | NUR ---
Patient visited in room during nursing rounds. Patient alert and oriented x2-3 (i.e. patient with intermittent confusions). V/S closely monitored. Pt on IVF (NS @ 50ml/hr). Call akbar within reach. Will monitor closely.
[2019-01-14] MEDS ORDERED: CEFAZOLIN SOD 1 GM VIAL IV SCH (22:00)
[2019-01-14] MEDS: CEFAZOLIN SOD 2 GM/D5W 50ML 50 ML IV SCH (22:00)
[2019-01-15] VITALS (10 sets, daily range): BP systolic 109–201; BP diastolic 60–89
[2019-01-15] MEDS: LANOLIN 4.5 OZ OINT TP SCH ×2 (02:55→14:30)
--- NOTE | 2019-01-15 05:04 | NUR ---
Call attempt made to Dr. Thomas regarding patient's elevated BP of 194/82. Left voice message and awaiting on MD call back for possible medication orders.
--- NOTE | 2019-01-15 05:23 | NUR ---
2nd call attempt made for Dr. Thomas regarding patient's elevated BP (194/82). Still awaiting on MD call back.
[2019-01-15] MEDS: HYDROCODONE/APAP 5MG-325MG TAB PO PRN ×2 (05:30→15:49)
[2019-01-15] MEDS: LEVOTHYROXINE SODIUM 50 MCG TAB PO SCH (05:30)
[2019-01-15] MEDS ORDERED: FUROSEMIDE INJ 10 MG/ML 4 ML VIAL IV STA (05:36)
--- NOTE | 2019-01-15 05:36 | NUR ---
Received call from Dr. Thomas. MD was updated on patient's condition as follows: (1) Patient's BP was 197/87 with HR of 82, (2) Patient very anxious and hyperventilating, (3) Patient's wheezing and crackly on both lung white but O2 sat check was 98% to 100% on 4L NC. MD aware and stated he will see patient this morning and he said he will just order to give x1 dose STAT of Lasix 40mg IV.
[2019-01-15] MEDS: VANCOMYCIN 250MG/5ML ORAL SOLN PO SCH ×3 (05:46→21:37)
[2019-01-15] MEDS: PANTOPRAZOLE SOD 40 MG TABEC PO SCH (05:46)
[2019-01-15] MEDS: FAMOTIDINE 20 MG TAB PO SCH ×2 (05:46→15:50)
[2019-01-15] MEDS ORDERED: SODIUM CHLORIDE 0.9% 250ML 250 ML ONE (05:50)
[2019-01-15 06:06] LABS: BASOPHILS % 0.3 % (0.0-1.0); EOSINOPHILS % 0.3 % (0.0-6.0); HEMATOCRIT 38.1 % (34.2-44.1); HEMOGLOBIN 12.2 g/dL (12.0-16.0); LYMPHOCYTES % 8.2 % (18.0-39.1); MEAN CORPUSCULAR HEMOGLOBIN 30.1 pg (28-32); MEAN CORPUSCULAR VOLUME 94.1 fL (81-99); MONOCYTES # (AUTO) 1.7 (0.2-0.8); MONOCYTES % 13.7 % (4.4-11.3); NEUTROPHILS # (AUTO) 8.3 (2.1-6.9); NEUTROPHILS % 67.7 % (38.7-80.0); PLATELET COUNT 153 x10e3/uL (140-360); RED BLOOD COUNT 4.05 x10e6/uL (3.6-5.1); RED CELL DISTRIBUTION WIDTH 19.3 % (11.7-14.4)
[2019-01-15] MEDS: CEFAZOLIN SOD 2 GM/D5W 50ML 50 ML IV SCH ×3 (06:19→21:37)
[2019-01-15 06:33] LABS: ANION GAP 16.1 mmol/L (8-16); BLOOD UREA NITROGEN 17 mg/dL (7-26); BUN/CREATININE RATIO 24 (6-25); CALCIUM 8.6 mg/dL (8.4-10.2); CARBON DIOXIDE 19 mmol/L (22-29); CHLORIDE 105 mmol/L (98-107); CREATININE, SERUM 0.72 mg/dL (0.57-1.11); EST GLOMERULAR FILTRATION RATE > 60 ML/MIN (60-); GLUCOSE 209 mg/dL (74-118); POTASSIUM 4.1 mmol/L (3.5-5.1); SODIUM 136 mmol/L (136-145)
[2019-01-15 07:09] LABS: BAND NEUTROPHILS % (MANUAL) 4 %; LYMPHOCYTES % (MANUAL) 7 % (19-48); MONOCYTES % (MANUAL) 14 % (3.4-9.0); NEUTROPHILS % (MANUAL) 67 % (40-74)
[2019-01-15 07:10] LABS: ANISOCYTOSIS SLIGHT; HYPOCHROMASIA SLIGHT; PLATELET ESTIMATE SLIGHTLY DECREASED; RBC MORPHOLOGY COMMENT NORMAL
[2019-01-15 07:11] LABS: PLATELET MORPHOLOGY COMMENT FEW LARGE
[2019-01-15] MEDS: OXYBUTYNIN CHLORIDE 5 MG TAB PO SCH (08:56)
[2019-01-15] MEDS: MULTIVITAMINS/MINERALS TAB PO SCH (08:56)
[2019-01-15] MEDS: GABAPENTIN 100 MG CAP PO SCH ×2 (08:56→17:16)
[2019-01-15] MEDS: DICYCLOMINE HCL 10 MG CAP PO SCH ×3 (08:56→21:00)
[2019-01-15] MEDS: BALSAM PERU/CASTOR OIL 60 GM OINT...G. TP SCH ×2 (09:27→17:16)
[2019-01-15] MEDS ORDERED: NIFEDIPINE CR 30 MG TAB PO ONE (09:45)
[2019-01-15] MEDS: CHOLESTYRAMINE 4 GM PACKET PO SCH ×2 (10:15→17:16)
[2019-01-15] MEDS: ALPRAZOLAM 0.25 MG TAB PO PRN (14:40)
--- NOTE | 2019-01-15 15:58 | Diagnostic Imaging Report ---
Examination: Single AP view of the chest. COMPARISON: None. INDICATION: Shortness of breath, back pain DISCUSSION: Lines/tubes: Dual-lead pacemaker. Lungs: Pulmonary edema. Pleura: No pleural effusion or pneumothorax. Heart and mediastinum: The heart and the mediastinum are unremarkable. Bones and soft tissues: No acute bony abnormalities. IMPRESSION: Pulmonary edema. Signed by: Dr. Jasper Mahajan M.D. on 01/15/2019 3:54 PM
--- NOTE | 2019-01-15 16:00 | NUR ---
Pt complaining of SOB, notified Dr. Thomas and received orders for CXR and xanax 0.25mg po q4hrs PRN anxiety. CXR results called to Dr. Thomas and received orders for lasix 40mg IV x1 dose now.
[2019-01-15] MEDS ORDERED: FUROSEMIDE INJ 10 MG/ML 4 ML VIAL IV NR (16:30)
--- NOTE | 2019-01-15 17:29 | NUR ---
Nutrition Intervention Note RD Recommendation(s) for Physician: - Continue regular diet as medically appropriate - Continue Ensure Enlive TID to promote protein-calorie intake - Rec appetite stimulant if appetite continues to be poor - Encourage PO and hydration - The patient meets criteria for MODERATE protein-calorie malnutrition. Plan of Care: RD following, monitoring for tolerance and adequacy, ONS rec Nutrition reason for involvement: Follow up RD Assessment 01/15 Chart reviewed. Labs and meds reviewed. CXR pulmonary edema. Visited pt in the room. Pt reported poor appetite with <50% meal intake. However, pt drank 100% of Ensure TID. Obtained food preferences. Diet staff has been taking orders and offering options to pt. LBM 01/15, diarrhea stopped per pt. Pt has missing some teeth but refused texture modification. No swallowing issue noted. Will continue to monitor and follow. 01/11- Chart reviewed. Labs and meds reviewed. 83yo F, who was admitted for fever. 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 Visited pt in the room. Pt reported poor appetite with decreased meal intake for unknown amount of time. However, she was drinking Ensure 3x a day to keep her from losing too much weight. Pt stated I want to vomit when I see foods sometimes. No nausea or vomiting today. LBM 01/11. Pt denied any chewing or swallowing difficulty. Pt requested for Ensure. RN Jennifer was aware of new diet order. Will continue to monitor and follow. Principal Problems/Diagnoses: anemia, UTI, immuosuppression fever PMH: Atrial fibrillation, on anticoagulant therapy, dyslipidemia, hypertension, osteoporosis, rheumatoid arthritis, hypothyroidism GI: abdomen soft, non-tender, LBM 01/15 Skin: No pressure wound noted by wound care Labs: (01/15) Glucose 180 200+ Meds: pepcid, abx, questran, MVi w/ minerals, protonix, synthroids Ht: 64in Wt: 104.25lb BMI: 17.9kg/m2 IBW: 120lb Malnutrition Evaluation (01/11/2019) The patient meets criteria for MODERATE protein-calorie malnutrition. Energy intake: <75% of estimated energy requirements for >1 month Weight loss: >5% in 1 month (Acute) Fat loss: N/A Muscle loss: Moderate temporal depression Supporting Evidence: Fluid accumulation: n/a Functional Status: no changes Nutrition Prescription (Diet Order): regular diet Estimated Nutritional Needs: Calories: 1410 1645kcal (30-35kcal/kg/d) Weight used : Current BW Protein: 70 94g (1.5-2g/kg/d) Weight used: Current BW Diet Adequacy: Not meeting calorie needs, Not meeting protein needs Diet Education Needs Assessment: Diet education not indicated. Nutrition Care Level: mod Nutrition Diagnosis: Underweight related to acute illness as evidenced by poor intake, decreased appetite and fat loss. Goal: Patient will meet 75-100% of estimated needs by follow up Progress: Progressing Interventions: General healthful diet, Commercial beverage Monitoring/Evaluation: Total energy intake, Total protein intake, diet, Liquid supplement, Weight change Signed: Sis Go MS, RD, LD
--- NOTE | 2019-01-15 19:15 | NUR ---
Patient visited in room during nursing rounds. Patient alert and oriented x3. No distress or discomfort noted. On scheduled IV antibiotics. Call akbar within reach. Will continue to monitor closely.
--- NOTE | 2019-01-15 22:04 | Progress Note ---
DATE: 01/15/2019 SUBJECTIVE: I interviewed and evaluated this patient. I have been following her for carcinoma of the esophagus, which has been treated with chemoradiation therapy, which she completed about a week ago. She was admitted with fever, leukopenia, and suggestion of bronchopneumonia. She has been receiving IV fluids for hydration and intravenous antibiotic therapy. She remains weak with poor appetite and a little short of breath. OBJECTIVE: VITAL SIGNS: On examination, she is afebrile. Vital signs are stable. She is on supplemental oxygen. LUNGS: Otherwise appear clear on bedside examination. ABDOMEN: Soft without visceromegaly. LABORATORY EVALUATION: Reveals that her neutropenia has resolved. White count is 12.2, hemoglobin is 12.2 also. She received packed red cell transfusion. Platelet count, which was 71,000 on admission has recovered to 153,000. Serum chemistries revealed normal renal function yesterday. IMAGING STUDIES: Include chest x-ray from today, which reveals pulmonary edema. ASSESSMENT AND PLAN: Carcinoma of the esophagus. Admitted with neutropenia, fever, and clinical picture of bronchopneumonia-neutropenia and thrombocytopenia resolved. Anemia improved with transfusion. Present picture is more suggestive of congestive heart failure by chest x-ray report. I will be in the background and follow the patient from a distance. She was advised to return for restaging studies in 1 month in the office. Felisha Waller MD [facility] /[id number]
[2019-01-16] VITALS (7 sets, daily range): BP systolic 106–140; BP diastolic 58–63
[2019-01-16] MEDS: LANOLIN 4.5 OZ OINT TP SCH ×2 (00:49→14:07)
[2019-01-16] MEDS: FAMOTIDINE 20 MG TAB PO SCH ×2 (06:44→16:02)
[2019-01-16] MEDS: LEVOTHYROXINE SODIUM 50 MCG TAB PO SCH (06:44)
[2019-01-16] MEDS: CEFAZOLIN SOD 2 GM/D5W 50ML 50 ML IV SCH ×3 (06:44→22:14)
[2019-01-16] MEDS: NIFEDIPINE CR 30 MG TAB PO SCH ×2 (06:44→08:42)
[2019-01-16] MEDS: PANTOPRAZOLE SOD 40 MG TABEC PO SCH (06:44)
[2019-01-16] MEDS: VANCOMYCIN 250MG/5ML ORAL SOLN PO SCH ×3 (06:44→22:14)
--- NOTE | 2019-01-16 07:06 | NUR ---
RECEIVED PATIENT LAYING IN BED WITH EYES OPEN. NO ACUTE DISTRESS NOTED. CAREGIVER AT BEDSIDE. CALL LIGHT WITHIN REACH. BED IN THE LOWEST POSITION.
[2019-01-16] MEDS: OXYBUTYNIN CHLORIDE 5 MG TAB PO SCH (08:42)
[2019-01-16] MEDS: BALSAM PERU/CASTOR OIL 60 GM OINT...G. TP SCH ×2 (08:42→16:02)
[2019-01-16] MEDS: GABAPENTIN 100 MG CAP PO SCH ×2 (08:42→16:02)
[2019-01-16] MEDS: DICYCLOMINE HCL 10 MG CAP PO SCH ×3 (08:42→22:14)
[2019-01-16] MEDS: MULTIVITAMINS/MINERALS TAB PO SCH (08:42)
[2019-01-16 09:07] LABS: BASOPHILS # (AUTO) 0.1 (0.0-0.1); BASOPHILS % 0.6 % (0.0-1.0); EOSINOPHILS # (AUTO) 0.1 (0.0-0.4); EOSINOPHILS % 0.8 % (0.0-6.0); HEMATOCRIT 35.9 % (34.2-44.1); HEMOGLOBIN 11.6 g/dL (12.0-16.0); LYMPHOCYTES # (AUTO) 0.8 (1.0-3.2); LYMPHOCYTES % 8.6 % (18.0-39.1); MEAN CORPUSCULAR HEMOGLOBIN 30.3 pg (28-32); MEAN CORPUSCULAR HGB CONC 32.3 g/dL (31-35); MEAN CORPUSCULAR VOLUME 93.7 fL (81-99); MONOCYTES # (AUTO) 1.3 (0.2-0.8); MONOCYTES % 14.5 % (4.4-11.3); NEUTROPHILS # (AUTO) 4.9 (2.1-6.9); NEUTROPHILS % 56.3 % (38.7-80.0); PLATELET COUNT 149 x10e3/uL (140-360); RED BLOOD COUNT 3.83 x10e6/uL (3.6-5.1); RED CELL DISTRIBUTION WIDTH 19.5 % (11.7-14.4)
[2019-01-16 09:29] LABS: ANION GAP 14.9 mmol/L (8-16); BLOOD UREA NITROGEN 28 mg/dL (7-26); BUN/CREATININE RATIO 34 (6-25); CALCIUM 8.9 mg/dL (8.4-10.2); CARBON DIOXIDE 25 mmol/L (22-29); CHLORIDE 99 mmol/L (98-107); CREATININE, SERUM 0.83 mg/dL (0.57-1.11); EST GLOMERULAR FILTRATION RATE > 60 ML/MIN (60-); GLUCOSE 163 mg/dL (74-118); POTASSIUM 3.9 mmol/L (3.5-5.1); SODIUM 135 mmol/L (136-145)
[2019-01-16] MEDS: CHOLESTYRAMINE 4 GM PACKET PO SCH ×2 (09:54→16:46)
[2019-01-16] MEDS: ACETAMINOPHEN 325 MG TAB PO PRN (11:22)
[2019-01-16 13:40] LABS: BAND NEUTROPHILS % (MANUAL) 2 %; EOSINOPHILS % (MANUAL) 1 % (0-7); LYMPHOCYTES % (MANUAL) 10 % (19-48); METAMYELOCYTES % (MANUAL) 4 % (0-0); MONOCYTES % (MANUAL) 18 % (3.4-9.0); MYELOCYTES % (MANUAL) 3 % (0-0); NEUTROPHILS % (MANUAL) 55 % (40-74); POLYCHROMASIA FEW
[2019-01-16 13:41] LABS: ANISOCYTOSIS SLIGHT; RBC MORPHOLOGY COMMENT NORMAL
[2019-01-16 13:42] LABS: PLATELET ESTIMATE SLIGHTLY DECREASED
[2019-01-16 13:43] LABS: PLATELET MORPHOLOGY COMMENT FEW LARGE; POIKILOCYTOSIS SLIGHT
[2019-01-16] MEDS ORDERED: SODIUM CHLORIDE 0.9% 250ML 250 ML ONE (13:55)
[2019-01-16] MEDS: HYDROCODONE/APAP 5MG-325MG TAB PO PRN (15:55)
--- NOTE | 2019-01-16 19:21 | NUR ---
REPORT GIVEN TO ONCOMING NURSE, WALKING ROUNDS COMPLETED. PATIENT IS RESTING IN BED. RESPIRATIONS EVEN AND UNLABORED, NO SOB/ACUTE DISTRESS NOTED. CALL LIGHT WITHIN REACH. BED IN THE LOWEST POSITION.
--- NOTE | 2019-01-16 19:42 | NUR ---
PT IS RESTING IN BED. NO RESPIRATORY DISTRESS NOTED. BED IN THE LOWEST POSITION, LOCKED, AND CALL LIGHT WITHIN REACH. WILL CONTINUE TO MONITOR.
--- NOTE | 2019-01-16 19:51 | NUR ---
PT IS RESTING IN BED WITH FAMILY AT BEDSIDE. NO RESPIRATORY DISTRESS NOTED. BED IN THE LOWEST POSITION, LOCKED, AND CALL LIGHT WITHIN REACH. WILL CONTINUE TO MONITOR.
[2019-01-17] VITALS (9 sets, daily range): BP systolic 114–125; BP diastolic 56–66
[2019-01-17] MEDS: LANOLIN 4.5 OZ OINT TP SCH ×2 (02:45→14:00)
[2019-01-17] MEDS: VANCOMYCIN 250MG/5ML ORAL SOLN PO SCH ×3 (06:12→21:22)
[2019-01-17] MEDS: CEFAZOLIN SOD 2 GM/D5W 50ML 50 ML IV SCH ×3 (06:12→21:23)
[2019-01-17] MEDS: LEVOTHYROXINE SODIUM 50 MCG TAB PO SCH (06:12)
--- NOTE | 2019-01-17 07:00 | NUR ---
PATIENT IS IN STABLE CONDITION WITH NO S/S OF RESPIRATORY DISTRESS. NO PAIN VOICED. REDNESS NOTED TO LOWER BUTTOCK/PERIANAL AREA. CALL LIGHT IS WITHIN REACH, PATIENT INSTRUCTED TO CALL FOR ASSISTANCE NEEDED.
[2019-01-17] MEDS: CHOLESTYRAMINE 4 GM PACKET PO SCH ×2 (08:59→17:50)
[2019-01-17] MEDS: DICYCLOMINE HCL 10 MG CAP PO SCH ×3 (08:59→21:22)
[2019-01-17] MEDS: NIFEDIPINE CR 30 MG TAB PO SCH (08:59)
[2019-01-17] MEDS: OXYBUTYNIN CHLORIDE 5 MG TAB PO SCH (08:59)
[2019-01-17] MEDS: FAMOTIDINE 20 MG TAB PO SCH ×2 (08:59→17:50)
[2019-01-17] MEDS: GABAPENTIN 100 MG CAP PO SCH ×2 (08:59→17:50)
[2019-01-17] MEDS: PANTOPRAZOLE SOD 40 MG TABEC PO SCH (08:59)
[2019-01-17] MEDS: MULTIVITAMINS/MINERALS TAB PO SCH (08:59)
[2019-01-17] MEDS: BALSAM PERU/CASTOR OIL 60 GM OINT...G. TP SCH ×2 (09:00→17:50)
[2019-01-17] MEDS: HYDROCODONE/APAP 5MG-325MG TAB PO PRN (09:24)
--- NOTE | 2019-01-17 14:48 | NUR ---
RECEIVED ORDER FOR HOME O2 EVAL AND HOME HEALTH. CLARIFIED ORDER FOR SN EVAL AND TREAT AND PT EVAL AND TREAT. MET W THE CAREGIVER AND PT AT THE BEDSIDE. CHOICE WAS PROVIDED. REQUESTED AN IN NETWORK HH AGENCY. PT CHOSE [facility] . CHOICE LETTER WAS SIGNED AND COPY TO CHART AND COPY TO THE PT. FAXED REFERRAL TO [facility] @ OFF: [phone] / FAX: [phone].
--- NOTE | 2019-01-17 17:08 | NUR ---
HOME HEALTH DISCHARGE NOTE PATIENT ADDRESS WHERE SERVICE WILL BE RECEIVED: [id number] [place] [address] PATIENT CONTACT NUMBER: [phone] NAME OF HOME HEALTH COMPANY: [employer]: TELEPHONE/FAX NUMBER OF COMPANY: OFF: [phone] / FAX: [phone] ADDRESS OF COMPANY: [address] [place] [address] [id number], [place] [address] SERVICES TO RECEIVE: RETIREMENT EVAL AND TREAT, PHYSICAL THERAPY EVAL AND TREAT ANTICIPATED DATE SERVICES WILL BEGIN: 01/18/2019 NAME OF [employer] HE[facility] COMPANY: [facility] TELEPHONE/FAX NUMBER OF COMPANY: OFF: / FAX: [phone] ADDRESS OF COMPANY: [id number], [place] [address] SERVICES TO RECEIVE: HOME O2 Please call the company above if you have not received a call to schedule a home visit within 24 hours of discharge.
--- NOTE | 2019-01-17 19:13 | NUR ---
PATIENT IS RESTING IN BED- IN STABLE CONDITION WITH NO S/S OF RESPIRATORY DISTRESS. NO PAIN VOICED. PATIENT IS AWAITING FOR OXYGEN FOR HOME O2. BED ALARM ON. CALL LIGHT IS WITHIN REACH, PATIENT INSTRUCTED TO CALL FOR ASSISTANCE NEEDED. REPORT GIVEN TO ONCOMING NURSE.
--- NOTE | 2019-01-17 19:17 | NUR ---
PT IS RESTING IN BED. NO RESPIRATORY DISTRESS NOTED. BED IN THE LOWEST POSITION, LOCKED, BED ALARM ON, AND CALL LIGHT WITHIN REACH. WILL CONTINUE TO MONITOR.
[2019-01-17] MEDS: ACETAMINOPHEN 325 MG TAB PO PRN (21:22)
[2019-01-18] VITALS (8 sets, daily range): BP systolic 115–139; BP diastolic 56–64
[2019-01-18] MEDS: LANOLIN 4.5 OZ OINT TP SCH ×2 (01:32→13:37)
[2019-01-18] MEDS: CEFAZOLIN SOD 2 GM/D5W 50ML 50 ML IV SCH (05:35)
[2019-01-18] MEDS: LEVOTHYROXINE SODIUM 50 MCG TAB PO SCH (05:35)
[2019-01-18] MEDS: VANCOMYCIN 250MG/5ML ORAL SOLN PO SCH ×3 (05:35→22:00)
--- NOTE | 2019-01-18 07:10 | NUR ---
PATIENT IS AWAKE, ALERT, AND IN STABLE CONDITION WITH NO S/S OF RESPIRATORY DISTRESS. NO PAIN VOICED. BED ALARM APPLIED. CALL LIGHT IS WITHIN REACH, PATIENT INSTRUCTED TO CALL FOR ASSISTANCE NEEDED.
[2019-01-18] MEDS: CHOLESTYRAMINE 4 GM PACKET PO SCH ×2 (08:20→16:55)
[2019-01-18] MEDS: PANTOPRAZOLE SOD 40 MG TABEC PO SCH (08:23)
[2019-01-18] MEDS: FAMOTIDINE 20 MG TAB PO SCH ×2 (08:23→16:55)
[2019-01-18] MEDS: OXYBUTYNIN CHLORIDE 5 MG TAB PO SCH (08:23)
[2019-01-18] MEDS: MULTIVITAMINS/MINERALS TAB PO SCH (08:23)
[2019-01-18] MEDS: DICYCLOMINE HCL 10 MG CAP PO SCH (08:23)
[2019-01-18] MEDS: GABAPENTIN 100 MG CAP PO SCH ×2 (08:23→16:55)
[2019-01-18] MEDS: NIFEDIPINE CR 30 MG TAB PO SCH (08:24)
[2019-01-18] MEDS: BALSAM PERU/CASTOR OIL 60 GM OINT...G. TP SCH ×2 (09:13→16:55)
[2019-01-18] MEDS: HYDROCODONE/APAP 5MG-325MG TAB PO PRN (09:27)
[2019-01-18] MEDS ORDERED: CHOLESTYRAMINE 4 GM PACKET PO ONE (12:15)
--- NOTE | 2019-01-18 12:21 | NUR ---
CALLED AND SPOKE WITH DR. PARIS REGARDING PATIENT CONTINUING TO HAVE LOOSE BOWEL MOVEMENTS. DR. PARIS WILL WRITE ORDERS- NO ORDERS GIVEN TO RN.
--- NOTE | 2019-01-18 15:40 | NUR ---
Visit made by the Spiritual Care Department Pastoral Visitor, Armen Ge. PV provided pastoral presence, hospitality, and supportive listening. Pastoral Visitor informed pt/family of the scope of [employer] and availability. CHA CARRANZA Neurological Surgeon Spiritual Care Department O: [phone] Pager: [phone] ([phone] calling from)
--- NOTE | 2019-01-18 17:06 | NUR ---
IMM LETTER EXPLAINED. VERBALIZED UNDERSTANDING. IMM LETTER SIGNED. COPY TO PT AND COPY TO CHART.
--- NOTE | 2019-01-18 18:33 | NUR ---
CALLED AND SPOKE WITH DR. PARIS- INFORMED DR. PARIS THAT PATIENT IS REFUSING TO LEAVE THIS EVENING D/T THE OXYGEN ARRIVING LATE. DR. PARIS AWARE AND STATED PATIENT CAN BE DISCHARGE TOMORROW BY THE DAY SHIFT NURSE IN THE MORNING PER DISCHARGE ORDER.
--- NOTE | 2019-01-18 19:00 | NUR ---
patient received awake, alert, lying quietly in bed. no c/o pain noted. 02/2l/nc in use. respirations even and unlabored. patients discharge held til tomorrow per orders. patient verbalizes understanding of this. pm assessment complete. side rails up x 3. call akbar placed within reach. patient instructed to call for assistance when needed.
--- NOTE | 2019-01-18 19:09 | NUR ---
PATIENT IS IN STABLE CONDITION WITH NO S/S OF RESPIRATORY DISTRESS. NO PAIN VOICED. BED ALARM APPLIED. CALL LIGHT IS WITHIN REACH, PATIENT INSTRUCTED TO CALL FOR ASSISTANCE NEEDED. REPORT GIVEN TO ONCOMING NURSE.
[2019-01-19 00:10] VITALS: BP 120/58
[2019-01-19] MEDS: LANOLIN 4.5 OZ OINT TP SCH (02:30)
[2019-01-19] MEDS: LEVOTHYROXINE SODIUM 50 MCG TAB PO SCH (05:26)
[2019-01-19] MEDS: VANCOMYCIN 250MG/5ML ORAL SOLN PO SCH (05:26)
[2019-01-19 06:00] VITALS: BP 131/60
--- NOTE | 2019-01-19 06:27 | Discharge Summary ---
PRIMARY CARE PHYSICIAN: Dr. Enma Fragoso. CONSULTANTS: Dr. Felisha Waller. FINAL DIAGNOSES: 1. Sepsis without shock. 2. Urinary tract infection with E coli, sensitive to multiple antibiotics. 3. Acute blood loss anemia, on anticoagulant therapy, status post 2 units blood transfusion. 4. Baseline esophageal cancer per Dr. Waller, ongoing chemotherapy. 5. Leukopenia, resolved. 6. Fever, resolved. 7. Vascular congestion with blood transfusion, resolved. 8. Major depression. SUMMARY: The patient is an 83-year-old female with multiple medical problems. The patient was with fever and not feeling well. She had been having ongoing chemoradiation for her carcinoma of the esophagus. The patient also has leukopenia, secondary to chemoradiation. She has also had multiple chronic pains. She was on warfarin and she came in with significant anemia. The patient's hemoglobin was 7.1 and hematocrit 22.9. The patient did receive 2 units of blood transfusion. Hemoglobin and hematocrit now are 11.6 and 35.9. The patient's warfarin has been stopped. She is doing much better now. She does have diarrhea, improving, but persists. Stool for C difficile was negative. The patient is stable. She will go home today. On her home medication adjustment, a lot of medications have been adjusted for the patient's comfort. She will continue enalapril, Pepcid, gabapentin, Brady, levothyroxine, metoprolol succinate, multivitamins, eyedrops, and tramadol as needed for pain. New prescription is Questran, vancomycin orally 125 mg three times a day for 10 days, Xanax as needed, and nifedipine XL 30 mg daily. Medications that the patient will hold off for now include alendronate, dicyclomine, hydralazine, , omeprazole, oxybutynin, MiraLax, pravastatin, prednisone, Dyazide, and warfarin. The patient will need to follow up with her family doctor and also her specialist for adjustment of medication. The patient is stable, discharged home today. MD ENID Valdez/ENRRIQUE /[id number]
[2019-01-19 07:26] VITALS: BP 132/63
[2019-01-19 08:15] VITALS: BP 132/63
--- NOTE | 2019-01-19 08:15 | NUR ---
Pt received resting in bed. Alert and oriented x4. Oriented to staff and surroundings, encouraged to press call akbar if help needed. Pt for discharge this AM. All meds given as ordered. Emotional support given. Fall precautions maintained. Will monitor
[2019-01-19] MEDS: ALPRAZOLAM 0.25 MG TAB PO PRN (08:20)
[2019-01-19] MEDS: ACETAMINOPHEN 325 MG TAB PO PRN (08:20)
[2019-01-19] MEDS: FAMOTIDINE 20 MG TAB PO SCH (08:21)
[2019-01-19] MEDS: BALSAM PERU/CASTOR OIL 60 GM OINT...G. TP SCH (08:21)
[2019-01-19] MEDS: OXYBUTYNIN CHLORIDE 5 MG TAB PO SCH (08:21)
[2019-01-19] MEDS: CHOLESTYRAMINE 4 GM PACKET PO SCH (08:21)
[2019-01-19] MEDS: GABAPENTIN 100 MG CAP PO SCH (08:21)
[2019-01-19] MEDS: NIFEDIPINE CR 30 MG TAB PO SCH (08:21)
[2019-01-19] MEDS ORDERED: HYDROCODONE/APAP 5MG-325MG TAB PO PRN (10:00)
[2019-01-19] MEDS ORDERED: VANCOMYCIN HCL500 MG PO (10:05)
[2019-01-19] MEDS ORDERED: XANAX0.25 MG PO (10:06)
[2019-01-19] MEDS ORDERED: QUESTRAN PACKET4 GM PO (10:06)
[2019-01-19] MEDS ORDERED: NIFEDIPINE ER30 M1 PO (10:06)
--- NOTE | 2019-01-19 10:45 | NUR ---
Pt & care tech (Carmen Wynn) given discharge instructions regarding meds, diet, activities, Oxygen tank, and follow up with PCP. Both verbalized understanding of teaching. Leaving via wheelchair to private car
[2019-01-20] MEDS ORDERED: LOPERAMIDE2 MG PO (17:02)
[2019-01-20] MEDS ORDERED: BENTYL10 MG/1 ML PO (17:03)
== END 2019-01-19 10:41 | disposition home health service (06) | DRG 871 ==
LOC: ER 14:37 → ERHOLD 20:48 → IMCU 22:11 → OBSVTOIN 01-11 09:51 → MED/SURG3 01-11 10:58
PROVIDERS: ADMIT Internal Medicine; ATTEND Internal Medicine
PROC: 30243N1 Transfusion of Nonautologous Red Blood Cells into Central Vein, Percutaneous Approach (ICD-10-PCS; principal; 2019-01-12)
DX: A41.9 Sepsis, unspecified organism (principal); J18.0 Bronchopneumonia, unspecified organism; N39.0 Urinary tract infection, site not specified; C15.9 Malignant neoplasm of esophagus, unspecified; D62 Acute posthemorrhagic anemia; D61.818 Other pancytopenia; B96.20 Unspecified Escherichia coli [E. coli] as the cause of diseases classified elsewhere; Z16.24 Resistance to multiple antibiotics; D70.1 Agranulocytosis secondary to cancer chemotherapy; T45.1X5A Adverse effect of antineoplastic and immunosuppressive drugs, initial encounter; D64.9 Anemia, unspecified; F32.9 Major depressive disorder, single episode, unspecified; E86.0 Dehydration; G89.29 Other chronic pain; M54.9 Dorsalgia, unspecified; J20.9 Acute bronchitis, unspecified; Z95.0 Presence of cardiac pacemaker; I48.91 Unspecified atrial fibrillation; Z79.01 Long term (current) use of anticoagulants; E78.5 Hyperlipidemia, unspecified; D70.9 Neutropenia, unspecified
CPT/HCPCS: 36415; 71045; 71250; 80048; 80053; 81001; 82270; 82607; 82746; 82948; 83518; 83735; 84100; 84443; 85025; 85610; 86850; 86900; 86920; 87040; 87070; 87086; 87186; 87400; 87493; 93306; 96361; 96365; 97139; 99284; G0378; J0690; J0696; J1200; J1442; J1940; J2543; J3480; J7030; J7050; P9016

== ENCOUNTER 2019-01-20 16:42 | Emergency (ER) | payer MEDICARE ==
[~2019-01-20] VITALS: Ht 162.6 cm; Wt 55.3 kg
[~2019-01-20 16:42] MED LIST changes: +MIRALAX17 GM PO; +MULTI-VITAMIN1 EACH PO; +NIFEDIPINE ER30 M1 PO; +PATADAY2.5 ML OP; +QUESTRAN PACKET4 GM PO; +ULTRAM50 MG PO; +VANCOMYCIN HCL500 MG PO; +WARFARIN SODIUM3 MG PO; +XANAX0.25 MG PO
--- OUTSIDE RECORDS SUMMARY | 2019-01-20 16:46 | XMS REPORT | Summary of Care ---
Author Author Melanie Dexter M.A. Organization Unknown Address [facility] Phone Unavailable Care Team Providers Care Foam Tank Laminator Name Role Phone PADMINI Piña, ELIZABETH Unavailable Unavailable CARLENE Camacho, LUIGI Unavailable Unavailable ABBY D.OFarshad, DULCE-YENNI Unavailable Unavailable JAMAAL Camacho, TAMIE Unavailable Unavailable JAMAAL BENAVIDES IA, TAMIE Unavailable Unavailable ASHLEE Camacho, MATTHEW Unavailable Unavailable Carlene BENAVIDES, Luigi Unavailable Unavailable YEH DO [facility], DULCE-YENNI Unavailable Unavailable Unavailable Unavailable Functional Status Name [...] Status: Resolved Procedures Procedure Dates Details [QL] PROTHROMBIN TIME-INR Date: 05-Dec-2018 [QLH] PROTHROMBIN TIME-INR Date: 05-Dec-2018 [QLH] PROTHROMBIN TIME-INR Date: 05-Dec-2018 [QLH] PROTHROMBIN TIME-INR Date: 05-Dec-2018 [QL] TSH, 3RD GENERATION W/REFLEX TO FT4 Date: 09-Jan-2019 [QL] PROTHROMBIN TIME-INR Date: 05-Dec-2018 [QL] TSH, 3RD GENERATION W/REFLEX TO FT4 Date: 15-Jan-2019 History of Hysterectomy Completed History of Breast Surgery Mastectomy Completed History of Breast Reconstruction With Implant Prosthesis Immediate Completed Immunization Name Dates Details Fluarix Quadrivalent 0.5 ML SUSP Lot #: [id number] on: 13-Aug-2014 Fluzone Quadrivalent 0.5 ML Intramuscular Suspension Lot #: [id number] on: 02-Dec-2015 Fluzone Quadrivalent 0.5 ML Intramuscular Suspension Prefilled Syringe Lot #: [id number] on: 31-Aug-2016 DTaP on: 10-Nov-2016 Fluzone High-Dose 0.5 ML Intramuscular Suspension Prefilled Syringe Lot #: [id number] on: 16-Nov-2017 Fluzone Quadrivalent 0.5 ML Intramuscular Suspension Lot #: [id number] on: 14-Aug-2018 Influenza Comments: Approx 21Sep2013 Pneumococcal polysaccharide vaccine, 23 valent Comments: UNKNOWN DATE Family History Name Dates Details Family history of Hypertension (V17.49) Status: Active Family history of Alzheimer Disease Status: Active Family history of hyperlipidemia (V18.19, Z83.438) Status: Active Social History Name Dates Details - Status: Name Dates Details Never smoker Never smoker Vital Signs Date Test Result Details [id number] BP Systolic 116 mm[Hg] Status: Comments: Location: [...] 80 /min Status: Comments: Location: L Radial; :30 BP Systolic 145 mm[Hg] Status: Comments: Location: LUE; Position: Sitting BP Diastolic 74 mm[Hg] Status: Comments: Location: LUE; Position: Sitting Height 64 in Status: Temperature 98.5 f Status: Comments: Method: Oral Heart Rate 84 /min Status: Comments: Location: [facility]; :45 Physical Findings 8 Status: Comments: PHQ-9 Adult Depression Screening :43 BP Systolic 107 mm[Hg] Status: Comments: Location: LUE; Position: Sitting BP Diastolic 58 mm[Hg] Status: Comments: Location: E; Position: Sitting Height 64 in Status: Weight [...] a day? Results Date Description Value Details [id number] [QLH] PROTHROMBIN TIME-INR Comments: Reference Range 0.9-1.1Moderate-intensity Warfarin Therapy 2.0-3.0Higher-intensity Warfarin Therapy 3.0-4.0 REPORT COMMENT:FASTING:NO INR 1.7 (Above high threshold) Comments: Reference Range 0.9-1.1Moderate-intensity Warfarin Therapy 2.0-3.0Higher-intensity Warfarin Therapy 3.0-4.0 PT 16.7 {sec} (Above high threshold) Range: 9.0-11.5 Comments: For more information on this test, go to:http://education.Animeeple.CiviQ/faq/[email or web address] [id number] [O] Urine Dipstick (In Office) Glucose NORMAL (Normal) LEUKOCYTES TRACE NITRITE NEGATIVE (Normal) UROBILINOGEN NORMAL (Normal) PROTEIN TRACE pH 5 (Normal) URINE BLOOD NEGATIVE (Normal) SPECIFIC GRAVITY 1.020 (Normal) KETONES NEGATIVE (Normal) BILIRUBIN NEGATIVE (Normal) COLOR URINE YELLOW (Normal) [id number] [QL] PROTHROMBIN TIME-INR Comments: Reference Range 0.9-1.1Moderate-intensity Warfarin Therapy 2.0-3.0Higher-intensity Warfarin Therapy 3.0-4.0 REPORT COMMENT:FASTING:YES INR 2.6 (Above high threshold) Comments: Reference Range 0.9-1.1Moderate-intensity Warfarin Therapy 2.0-3.0Higher-intensity Warfarin Therapy 3.0-4.0 PT 25.8 {sec} (Above high threshold) Range: 9.0-11.5 Comments: For more information on this test, go to:http://[place].Bivarus/faq/[email or web address] [id number] [[facility]] TSH, 3RD GENERATION Comments: REPORT COMMENT:FASTING:NO TSH 8.37 {MIU/L} (Above high threshold) Range: 0.40-4.50 Plan of Care Name Dates Details Planned Observations [QL] TSH, 3RD GENERATION W/REFLEX TO FT4 On: 26-Feb-2019 Intent Planned Goals not documented Planned Encounters Appointment; SUMEET VEGA M.D. On: 19-Feb-2019 13:00 Appointment; TAMIE HINTON M.D. On: 22-Feb-2019 10:00 Interventions Provided Labs/Procedures/Imaging* [QL] TSH, 3RD GENERATION; Done: 07 Jan 2019 Instructions Name Dates Details Instructions [...] Problem not documented On: 17-Jul-2018 12:40 Appointment; EN BROHMAN Encounter Diagnosis: Problem not documented On: 26-Jul-2018 [...] Problem not documented On: 30-Nov-2018 9:30 Appointment; [facility], NURSING Encounter Diagnosis: Problem not documented On: 05-Dec-2018 9:00 Appointment; STEVE MARTE, MERI Encounter Diagnosis: Problem not documented On: 19-Dec-2018 11:00 Appointment; WAYNE MORA D.O. Encounter Diagnosis: Problem not documented On: 22-Dec-2018 9:30 Appointment; TAMIE HINTON M.D. Encounter Diagnosis: Problem not documented On: 27-Dec-2018 10:30
[2019-01-20] MEDS ORDERED: LOPERAMIDE2 MG PO (17:02)
[2019-01-20] MEDS ORDERED: BENTYL10 MG/1 ML PO (17:03)
[2019-01-21] MEDS ORDERED: WARFARIN SODIU2.5 MG PO (08:49)
== END 2019-01-20 18:05 | disposition home or self-care (01) ==
LOC: ER 16:42
DX: R19.7 Diarrhea, unspecified (principal); I10 Essential (primary) hypertension; I48.91 Unspecified atrial fibrillation; E78.5 Hyperlipidemia, unspecified; S31.000A Unspecified open wound of lower back and pelvis without penetration into retroperitoneum, initial encounter; Z85.01 Personal history of malignant neoplasm of esophagus; Z95.0 Presence of cardiac pacemaker
CPT/HCPCS: 99284

== ENCOUNTER 2019-01-21 00:32 | Inpatient (IN) | payer MEDICARE ==
[2019-01-21] VITALS (8 sets, daily range): BP systolic 103–151; BP diastolic 46–69
[~2019-01-21] VITALS: Ht 162.6 cm; Wt 92.1 kg
[~2019-01-21 00:32] MED LIST changes: +BENTYL10 MG/1 ML PO; +LOPERAMIDE2 MG PO
[2019-01-21] MEDS ORDERED: FUROSEMIDE INJ 10 MG/ML 4 ML VIAL IV ONE ×2 (00:45→18:15)
[2019-01-21] MEDS ORDERED: ACETAMINOPHEN 1000 MG/100 ML IV STA (00:53)
[2019-01-21 01:23] LABS: BASOPHILS # (AUTO) 0.1 (0.0-0.1); BASOPHILS % 0.4 % (0.0-1.0); EOSINOPHILS # (AUTO) 0.1 (0.0-0.4); EOSINOPHILS % 0.2 % (0.0-6.0); HEMATOCRIT 38.5 % (34.2-44.1); LYMPHOCYTES # (AUTO) 3.8 (1.0-3.2); LYMPHOCYTES % 11.3 % (18.0-39.1); MEAN CORPUSCULAR HEMOGLOBIN 30.5 pg (28-32); MEAN CORPUSCULAR HGB CONC 31.2 g/dL (31-35); MONOCYTES # (AUTO) 2.1 (0.2-0.8); MONOCYTES % 6.2 % (4.4-11.3); NEUTROPHILS # (AUTO) 18.3 (2.1-6.9); NEUTROPHILS % 54.5 % (38.7-80.0); PLATELET COUNT 320 x10e3/uL (140-360); RED BLOOD COUNT 3.93 x10e6/uL (3.6-5.1); RED CELL DISTRIBUTION WIDTH 20.3 % (11.7-14.4)
[2019-01-21 01:26] LABS: BILIRUBIN,URINE NEGATIVE (NEGATIVE); CLARITY,URINE CLEAR (CLEAR); COLOR,URINE ORANGE (YELLOW); KETONES,URINE NEGATIVE (NEGATIVE); LEUKOCYTE ESTERASE ,URINE NEGATIVE (NEGATIVE); NITRITE,URINE NEGATIVE (NEGATIVE); PROTEIN,URINE DIPSTICK 1+ (NEGATIVE); URINE UROBILINOGEN 0.2 mg/dL (0.2 - 1)
[2019-01-21 01:30] LABS: INR 1.01; PROTHROMBIN TIME 13.8 seconds (11.9-14.5)
[2019-01-21 01:31] LABS: PARTIAL THROMBOPLASTIN TIME 33.3 seconds (23.8-35.5)
[2019-01-21 01:40] LABS: ALANINE AMINOTRANSFERASE 16 IU/L (0-55); ALBUMIN 2.9 g/dL (3.5-5.0); ALBUMIN/GLOBULIN RATIO 0.8 (0.8-2.0); ALKALINE PHOSPHATASE 92 IU/L (40-150); ANION GAP 16.5 mmol/L (8-16); BLOOD UREA NITROGEN 32 mg/dL (7-26); BUN/CREATININE RATIO 40 (6-25); CALCIUM 8.9 mg/dL (8.4-10.2); CARBON DIOXIDE 23 mmol/L (22-29); CHLORIDE 98 mmol/L (98-107); CREATINE KINASE 13 IU/L (29-168); CREATININE, SERUM 0.81 mg/dL (0.57-1.11); EST GLOMERULAR FILTRATION RATE > 60 ML/MIN (60-); GLUCOSE 249 mg/dL (74-118); POTASSIUM 4.5 mmol/L (3.5-5.1); SODIUM 133 mmol/L (136-145)
[2019-01-21 01:44] LABS: RBC,URINE 0-5 /HPF (0-5); WBC,URINE (MAN) 0-5 /HPF (0-5)
[2019-01-21 01:45] LABS: BACTERIA,URINE MODERATE /HPF; EPITHELIAL CELLS,URINE FEW /LPF
--- NOTE | 2019-01-21 01:46 | Diagnostic Imaging Report ---
EXAMINATION: CHEST SINGLE (PORTABLE) COMPARISON: Chest x-ray 01/15/2019 INDICATION: ^sob ^[id number] ^0110 ^Y DISCUSSION: Frontal view of the chest obtained at 0112 hours. HEART AND MEDIASTINUM: Stable cardiomegaly. LINES: Dual-lead pacemaker wires remain in the right atrium and right ventricle. LUNGS: Baseline pulmonary hyperinflation. Diffuse pulmonary vascular prominence and diffuse groundglass airspace opacities with mild interstitial edema. PLEURA: Left lateral costophrenic angle is poorly visualized. Right lateral costophrenic angle is sharp. No pneumothorax. BONES AND SOFT TISSUES: No focal osseous lesion. The soft tissues are normal. IMPRESSION: No change in pulmonary vascular congestion and edema. Small left pleural effusion cannot be excluded. Signed by: Dr. Tristan Carmona MD on 01/21/2019 1:43 AM
[2019-01-21] MEDS ORDERED: CEFTRIAXONE SOD 1 GM/NS 50 ML 50 ML IV SCH (02:00)
[2019-01-21] MEDS ORDERED: SODIUM CHLORIDE FLUSH 10 ML SYR INJ PRN (02:00)
[2019-01-21] MEDS ORDERED: ACETAMINOPHEN 325 MG TAB PO PRN (02:00)
--- NOTE | 2019-01-21 02:34 | NUR ---
PATIENT DOES NOT HAVE MEDICATION LIST WITH HER, CAREGIVER WILL BRING IN THE MORNING
[2019-01-21 02:49] LABS: BAND NEUTROPHILS % (MANUAL) 3 %; EOSINOPHILS % (MANUAL) 1 % (0-7); LYMPHOCYTES % (MANUAL) 6 % (19-48); MONOCYTES % (MANUAL) 1 % (3.4-9.0); NEUTROPHILS % (MANUAL) 79 % (40-74); NUCLEATED RED BLOOD CELLS 3; SMUDGE CELLS FEW
[2019-01-21 02:50] LABS: ANISOCYTOSIS SLIGHT; POIKILOCYTOSIS MODERATE; POLYCHROMASIA FEW; TEAR DROP CELLS FEW
[2019-01-21 02:51] LABS: PLATELET ESTIMATE ADEQUATE; PLATELET MORPHOLOGY COMMENT NORMAL
[2019-01-21 02:52] LABS: RBC MORPHOLOGY COMMENT NORMAL
[2019-01-21] MEDS: ALBUTEROL/IPRATROPIUM 3 ML NEB NEB SCH ×4 (03:35→15:46)
--- NOTE | 2019-01-21 07:00 | NUR ---
WALKING ROUNDS WITH JOYA RAPP RN
--- NOTE | 2019-01-21 07:15 | NUR ---
ATTEMPTED TO GO OVER MEDICATIONS WITH PATIENT OF EXTERNAL MED LIST AVAILABLE. PATIENT DOES NOT KNOW HER MEDS
--- NOTE | 2019-01-21 07:30 | NUR ---
PATIENT REFUSING TO EAT, STATES SHE DOES NOT HAVE AN APPETITE. WENT OVER HER SELECTION THAT THEY BROUGHT FOR HER AND OFFERED TO GET HER SOMETHING ELSE SHE WOULD LIKE. SHE DECLINED. REQUESTED ICE WATER, THAT WAS GIVEN
--- NOTE | 2019-01-21 07:53 | NUR ---
TOWER SUPERVISOR AT BEDSIDE DRAWING LACTIC, CARDIAC AND BMP
--- NOTE | 2019-01-21 08:10 | NUR ---
PATIENTS SON AT BEDSIDE, ASKED HIM IF THERE WAS ANYWAY POSSIBLE TO GET HER MEDICATION LIST. HE STATED, "I WILL MAKE SOME PHONE CALLS AND SEE IF I CAN GET IT"
[2019-01-21 08:40] LABS: CREATINE KINASE MB 2.5 ng/mL (0-5.0)
[2019-01-21] MEDS ORDERED: HYDROCODONE/APAP 5MG-325MG TAB PO PRN (08:45)
[2019-01-21] MEDS ORDERED: TRAMADOL HCL 50 MG TAB PO PRN (08:45)
[2019-01-21] MEDS ORDERED: WARFARIN SODIU2.5 MG PO (08:49)
[2019-01-21] MEDS ORDERED: VANCOMYCIN HCL 250 MG PO SCH (09:00)
[2019-01-21] MEDS ORDERED: NON-FORMULARY MEDICATION (Olopatadine (Pataday) 1 DROP) OP SCH (09:00)
[2019-01-21] MEDS ORDERED: LEVOTHYROXINE SODIUM 75 MCG TAB PO SCH (09:00)
[2019-01-21] MEDS ORDERED: FUROSEMIDE INJ 10 MG/ML 4 ML VIAL IV SCH (09:00)
[2019-01-21] MEDS ORDERED: DIATRIZOATE MEGL/DIATRIZOA SOD 30 ML BTL PO ONE (09:43)
[2019-01-21] MEDS: MULTIVITAMINS/MINERALS TAB PO SCH (10:30)
[2019-01-21] MEDS: METOPROLOL SUCCINATE 50 MG TAB XL PO SCH (10:30)
[2019-01-21] MEDS: VANCOMYCIN 250MG/5ML ORAL SOLN PO SCH ×3 (10:30→20:18)
[2019-01-21] MEDS: GABAPENTIN 100 MG CAP PO SCH ×2 (10:30→18:00)
[2019-01-21] MEDS: NIFEDIPINE CR 30 MG TAB PO SCH (10:30)
[2019-01-21] MEDS: FAMOTIDINE 20 MG TAB PO SCH (10:30)
--- NOTE | 2019-01-21 11:40 | NUR ---
PATIENT RECEIVED FROM ER PER STRETCHER. ALERT AND VERBALLY RESPONSIVE. SKIN WARM AND DRY TO TOUCH, RESPIRATORY EVEN AND UNLABORED, ON O2 AT 2L VIA N/C. ABDOMEN SOFT AND NON DISTENDED, LAST BM TODAY. OJEDA CATHETER IN PLACE WITH YELLOW URINE. BED IN LOWER POSITION AND LOCKED, CALL LIGHT AT REACH. ALL PERSONAL ITEMS CLOSE TO PATIENT, INSTRUCTED TO CALL FOR ASSISTANCE NEEDED.
[2019-01-21] MEDS: CHOLESTYRAMINE 4 GM PACKET PO SCH ×2 (12:00→18:00)
--- NOTE | 2019-01-21 12:25 | NUR ---
PATIENT REFUSED CT SCAN PER RADIOLOGY. ASKED BY THE NURSE, PATIENT STILL REFUSE. MD NOTIFIED, NO NEW ORDER RECEIVED.
[2019-01-21] MEDS: ALPRAZOLAM 0.25 MG TAB PO SCH ×2 (13:00→18:01)
[2019-01-21] MEDS: OLOPATADINE 5 ML BTL OP SCH (14:00)
--- NOTE | 2019-01-21 16:24 | NUR ---
FAMILY AT BED SIDE AT THIS TIME, PATIENT CHANGED HER MIND AND STATED THAT SHE WILL LIKE TO GO FOR CT SCAN. RADIOLOGY NOTIFIED.
--- NOTE | 2019-01-21 17:23 | NUR ---
PATIENT OFF UNIT TO RADIOLOGY.
[2019-01-21] MEDS: HYDROCODONE/APAP 5MG-325MG TAB PO PRN (17:55)
--- NOTE | 2019-01-21 17:55 | NUR ---
PATIENT BACK TO UNIT FROM RADIOLOGY. C/O BACK PAIN, PAIN MEDICATION ADMINISTERED ORDERED. REPOSITIONED IN BED, CALL LIGHT AT REACH.
[2019-01-21] MEDS: ENOXAPARIN SOD INJ 40 MG/0.4 ML SYR SC SCH (18:43)
--- NOTE | 2019-01-21 19:15 | NUR ---
patient received awake, alert, lying quietly in bed. patient remains sob with labored respirations. 02/2l/nc in use. hob elevated 40 degrees. patient denies pain at this time. pm assessment complete. side rails up x 3, call akbar placed within reach, patient instructed to call for assistance when needed.
[2019-01-21] MEDS: IPRATROPIUM BROMIDE 0.02% 2.5 ML NEB NEB SCH (19:17)
[2019-01-21] MEDS: LEVALBUTEROL HCL SOLN NEBU 1.25 MG/3 ML NEB INH SCH (19:17)
--- NOTE | 2019-01-21 19:46 | Diagnostic Imaging Report ---
EXAM: CT chest, abdomen, and Pelvis WITH contrast INDICATION: 83-year-old female CHF, fever, leukocytosis COMPARISON: Chest CT dated 01/11/[address] dated 01/02/2019 TECHNIQUE: Chest, Abdomen and Pelvis was scanned utilizing a multidetector helical scanner IV CONTRAST: None COMPLICATIONS: None RADIATION DOSE: Total DLP: 465 Estimated effective dose: (DLP x 0.015 x size factor) mSv CTDIvol has been reviewed. It is below the limits set by the Radiation Protocol Committee (RPC). Appropriate CT dose reduction techniques were utilized. FINDINGS: Chest: LINES/ TUBES: Right-sided pacer with leads into the right ventricle. LUNGS AND AIRWAYS: Scattered septal thickening, greatest in the lung apices and mild diffuse groundglass abnormality. Bilateral lower lobe compressive atelectasis due to moderate pleural effusions. There is bilateral perihilar bronchial wall thickening. PLEURA: Interval increase in now moderate pleural effusions. No pneumothorax or pleural calcification. HEART AND MEDIASTINUM: The thyroid gland is normal. No mediastinal, hilar or axillary lymphadenopathy. There are scattered solitary mediastinal nodes likely reactive. There is mild cardiomegaly.. There is no pericardial effusion. The thoracic aorta is atherosclerotic without dilatation. The main pulmonary artery is dilated measuring 3.3 cm. Abdomen: Solid Organs: Renal cysts and non-characterized hypodensities. Solid organs otherwise unremarkable. Upper GI Tract: No small bowel obstructive change. Vascularity: Vascular calcifications with no aortic aneurysm. Lymph Nodes: No definite adenopathy. Other: None. Pelvis: Bladder: Reynolds catheter in the bladder. Other: Uterus absent. Colon: Moderate stool with a patulous cecum. Sigmoid diverticulosis. No definite acute findings. Bones: L5 pars defect with grade 2 anterolisthesis. Large Schmorl's node superior endplate L2. IMPRESSION: 1. Increasing pleural effusions, now moderate with septal thickening and diffuse groundglass suggestive of worsening congestive heart failure. Underlying infectious/inflammatory processes are difficult to exclude. 2. Moderate diverticulosis. 3. Other findings as above. Signed by: Malik Dorado MD on 01/21/2019 7:42 PM
--- NOTE | 2019-01-21 20:46 | NUR ---
patient very sob. patient states, " I can't breathe. " neb treatment give. Call placed to Dr. Laura Thomas re: respiratory status. orders received to transfer patient to icu and place patient on bipap. ABG's ordered stat.
--- NOTE | 2019-01-21 21:00 | NUR ---
Report called to Mara Morfin RN at this time.
[2019-01-21 21:11] LABS: ABG PH 7.44 (7.31-7.41)
[2019-01-21 21:12] LABS: ABG HCO3 25 mmol/L (23-28); ABG PCO2 36 mmHg (41-51); ABG PO2 60 mmHg (80-105)
--- NOTE | 2019-01-21 21:15 | NUR ---
patient transfered to icu 196 via bed at this time.
[2019-01-21 21:35] LABS: CREATINE KINASE MB 2.3 ng/mL (0-5.0)
[2019-01-22] VITALS (25 sets, daily range): BP systolic 98–166; BP diastolic 48–83
[2019-01-22] MEDS: ALPRAZOLAM 0.25 MG TAB PO SCH ×6 (02:11→12:00)
[2019-01-22] MEDS: HYDROCODONE/APAP 5MG-325MG TAB PO PRN (02:39)
[2019-01-22] MEDS: LEVALBUTEROL HCL SOLN NEBU 1.25 MG/3 ML NEB INH SCH ×4 (02:45→19:35)
[2019-01-22] MEDS: IPRATROPIUM BROMIDE 0.02% 2.5 ML NEB NEB SCH ×4 (02:45→19:35)
[2019-01-22 05:02] LABS: BASOPHILS % 0.2 % (0.0-1.0); EOSINOPHILS % 0.1 % (0.0-6.0); HEMATOCRIT 33.7 % (34.2-44.1); HEMOGLOBIN 10.9 g/dL (12.0-16.0); LYMPHOCYTES # (AUTO) 0.6 (1.0-3.2); LYMPHOCYTES % 3.2 % (18.0-39.1); MEAN CORPUSCULAR HEMOGLOBIN 31.1 pg (28-32); MEAN CORPUSCULAR HGB CONC 32.3 g/dL (31-35); MEAN CORPUSCULAR VOLUME 96.3 fL (81-99); MONOCYTES # (AUTO) 1.5 (0.2-0.8); MONOCYTES % 8.4 % (4.4-11.3); NEUTROPHILS # (AUTO) 12.3 (2.1-6.9); NEUTROPHILS % 69.7 % (38.7-80.0); PLATELET COUNT 278 x10e3/uL (140-360); RED CELL DISTRIBUTION WIDTH 20.1 % (11.7-14.4)
[2019-01-22 05:34] LABS: ANION GAP 13.3 mmol/L (8-16); BLOOD UREA NITROGEN 33 mg/dL (7-26); BUN/CREATININE RATIO 45 (6-25); CALCIUM 8.4 mg/dL (8.4-10.2); CARBON DIOXIDE 26 mmol/L (22-29); CHLORIDE 102 mmol/L (98-107); CREATININE, SERUM 0.73 mg/dL (0.57-1.11); EST GLOMERULAR FILTRATION RATE > 60 ML/MIN (60-); GLUCOSE 145 mg/dL (74-118); POTASSIUM 4.3 mmol/L (3.5-5.1); SODIUM 137 mmol/L (136-145)
[2019-01-22] MEDS: LEVOTHYROXINE SODIUM 50 MCG TAB PO SCH (06:31)
[2019-01-22] MEDS ORDERED: FUROSEMIDE 40 MG TAB PO SCH (07:00)
[2019-01-22] MEDS: CHOLESTYRAMINE 4 GM PACKET PO SCH ×2 (07:21→19:00)
[2019-01-22] MEDS: POTASSIUM CHLORIDE 10MEQ EA PO SCH (07:21)
[2019-01-22] MEDS: FUROSEMIDE INJ 10 MG/ML 4 ML VIAL IV SCH (07:21)
[2019-01-22] MEDS: METOPROLOL SUCCINATE 50 MG TAB XL PO SCH (09:29)
[2019-01-22] MEDS: NIFEDIPINE CR 30 MG TAB PO SCH (09:29)
[2019-01-22] MEDS: GABAPENTIN 100 MG CAP PO SCH ×2 (09:29→16:46)
[2019-01-22] MEDS: VANCOMYCIN 250MG/5ML ORAL SOLN PO SCH ×3 (09:29→20:50)
[2019-01-22] MEDS: MULTIVITAMINS/MINERALS TAB PO SCH (09:29)
[2019-01-22] MEDS: FAMOTIDINE 20 MG TAB PO SCH (09:29)
[2019-01-22] MEDS: OLOPATADINE 5 ML BTL OP SCH (09:29)
--- NOTE | 2019-01-22 13:15 | Consultation ---
DATE OF CONSULTATION: 01/21/2019 REASON FOR CONSULTATION: CHF. CONSULTING PHYSICIAN: Alexx Thomas M.D. HISTORY OF PRESENT ILLNESS: This is an 83-year-old female, who presented with shortness of breath. According to the family members at the bedside, she was recently admitted and discharged home 2 weeks ago, but she is still having symptoms of shortness of breath for which she was brought back for further evaluation. She has a history of esophageal cancer, underwent some chemoradiation in the past. She denied any chest pain, any palpitation, any diaphoresis, any headache, nausea, or vomiting. BNP was 1946 and Cardiology was consulted for CHF. She had a recent echocardiogram done in December with normal systolic function, EF 60% to 65%. PAST MEDICAL HISTORY: Rheumatoid arthritis, AFib, throat cancer, ruptured left breast prosthesis, hypertension, osteoporosis, neuropathy, hypothyroidism, overactive bladder, hyperlipidemia, CAD with permanent pacemaker, chronic back pain, leukopenia, UTI, and anemia. PAST SURGICAL HISTORY: Hysterectomy, permanent pacemaker placement, and breast implant. FAMILY HISTORY: Noncontributory. SOCIAL HISTORY: She is . No smoking. No drinking. MEDICATIONS: See med list. ALLERGIES: SHE IS NOT ALLERGIC TO ANY MEDICATIONS. REVIEW OF SYSTEMS: Negative except as mentioned above. She is positive for shortness of breath. PHYSICAL EXAMINATION: VITAL SIGNS: Temperature 97, heart rate 81, blood pressure 130/71, respirations 22, and oxygen saturation 96% on 2 L nasal cannula. GENERAL: She is awake, alert, and oriented x3. HEENT: Mucous membranes are moist. NECK: Supple. LUNGS: Bilateral with decreased breath sounds. CARDIOVASCULAR: Irregular. ABDOMEN: Soft. NEUROLOGIC: Intact. EXTREMITIES: With no edema. LABORATORY DATA: Sodium 137, potassium 4.3, chloride 102, CO2 26, BUN 33, creatinine 0.73, and glucose 145. White blood cell 17.6, hemoglobin 10.9, hematocrit 33.7, and platelets 278. PT 13.8, PTT 33.3, and INR 1.01. IMPRESSION: 1. Akgur-tj-yjslhfm diastolic congestive heart failure exacerbation. 2. Anemia. 3. Hypothyroidism. 4. Dysphagia. 5. History of atrial fibrillation. 6. Coronary artery disease with permanent pacemaker placement. 7. Hypertension. PLAN: 1. She was recently admitted and discharged in December. She had an echocardiogram done that showed normal systolic function, EF 60% to 65%. 2. We will continue diuretics, beta-diana at low dose, and YONY inhibitors. 3. She stated her pacemaker light went off at home and she did not know what happened. I will go ahead and call [employer] to interrogate the device and make sure it is working okay. 4. We will continue her home medications. 5. We will put her on low salt and low fluid restriction. Further cardiac workup pending clinical course. Thank you for this consultation. Dictated by Jazmine Henry NP Irvin POWELL/ENRRIQUE /[id number]
[2019-01-22 13:17] LABS: BAND NEUTROPHILS % (MANUAL) 12 %; BLAST CELLS % MANUAL 2; EOSINOPHILS % (MANUAL) 1 % (0-7); LYMPHOCYTES % (MANUAL) 2 % (19-48); METAMYELOCYTES % (MANUAL) 5 % (0-0); MONOCYTES % (MANUAL) 3 % (3.4-9.0); MYELOCYTES % (MANUAL) 4 % (0-0); NEUTROPHILS % (MANUAL) 62 % (40-74); NUCLEATED RED BLOOD CELLS 1; PROMYELOCYTES % (MANUAL) 7 % (0-0)
[2019-01-22 13:21] LABS: PLATELET ESTIMATE ADEQUATE; PLATELET MORPHOLOGY COMMENT NORMAL; RBC MORPHOLOGY COMMENT ABNORMAL
[2019-01-22 13:22] LABS: ANISOCYTOSIS MARKED; BURR CELLS SLIGHT; POIKILOCYTOSIS SLIGHT; POLYCHROMASIA FEW
[2019-01-22 13:23] LABS: OVALOCYTES FEW
[2019-01-22] MEDS: ALPRAZOLAM 0.5 MG TAB PO PRN (15:54)
[2019-01-22 16:05] LABS: ABG PCO2 47 mmHg (41-51); ABG PH 7.37 (7.31-7.41)
[2019-01-22 16:06] LABS: ABG HCO3 27 mmol/L (23-28); ABG PO2 63 mmHg (80-105)
--- NOTE | 2019-01-22 16:36 | NUR ---
CASE MANAGEMENT INITIAL ASSESSMENT Application Development Team Lead to bedside to discuss plan of care with patient/family. CM/SW role and care transitions discussed. Anticipated discharge plan discussed along with duration of care. CM/SW discussed patients right to make decisions in care. CM/SW work hours given. Patient lives: CAREGIVER IVETTE SANCHEZ Admit/Transfer: ER Hospital/ER visits since last admit:2 POA/Emergency contact: IVETTE SANCHEZ CAREGIVER [phone] Current/Previous Home Health: [facility] [phone] PCP/Follow-up Care: DR TAMIE HINTON Current/Previous DME: WALKER, SHOWER CHAIR AND 02 FROM [employer] Medications (referring to index hospitalization or the first time you were in the hospital) a. Were changes made in your medications when you were in the hospital on [date of index hospitalization]? Yes Note: If no or not sure, please skip to question d b. Did you understand the changes? YES c. Were you able to obtain your new medications right away? Yes d. Were you able to take your medications like the doctor wanted you to? Yes e. Did the hospital give you an accurate, easy to understand list of medications when you left? Yes Scale of 1-10 how comfortable does patient feel with disease management in outpatient setting: CAREGIVER FEELS VERY COMFORTABLE Other Services: NONE Employment Status: RETIRED Areas of Concerns: IF PT GETS PEG; CAREGIVER FAMILIAR WITH [employer] FEEDS HER HAD THEM BEFORE HE PASSED Referral Needs: WILL NEED TO RE-INITIATE HOME HEALTH WITH [facility] Education Needs: TO BE DETERMINED IMM/HERNANDEZ given and signed (if applicable): IMM ON ADMIT Goal for discharge:DC BACK HOME WITH CAREGIVER IVETTE SANCHEZ WHEN MEDICALLY STABLE CM/SW left business card at the bedside with contact information. Name and number was also written on the patients whiteboard. Patient verbalized understanding of discussion. CM will follow-up with ongoing discharge and transition of care needs.
[2019-01-22] MEDS: AZITHROMYCIN 500MG/NS 250 ML 250 ML IV SCH (17:07)
[2019-01-22] MEDS ORDERED: FUROSEMIDE INJ 10 MG/ML 4 ML VIAL IV ONE (17:15)
--- NOTE | 2019-01-22 23:38 | Consultation ---
DATE OF CONSULTATION: 01/22/2019 Pulmonary consultation. Patient of Dr. Thomas, Dr. Waller, and Dr. Bynum. HISTORY OF PRESENT ILLNESS: Charming, but unfortunate 83-year-old woman, admitted with shortness of breath and history of esophageal carcinoma diagnosed in September of last year, presented with chest pain. She has had chemotherapy and radiation. She has sick sinus syndrome, rheumatoid arthritis, chronic atrial fibrillation . She had hysterectomy, bilateral breast surgery, pacemaker. She had diminished appetite. PHYSICAL EXAMINATION: GENERAL: She is a slight white female, somewhat tachypneic. She is awake and alert. VITAL SIGNS: Respiratory rate 32, temperature 96.7, pulse 82, and temperature max 100.5. HEENT: Head normocephalic, atraumatic. Eyes, extraocular movements intact. LUNGS: Diminished breath sounds in both bases. Few rales. HEART: Regular rhythm, paced. ABDOMEN: Questionable ascites. EXTREMITIES: Nonedematous. IMPRESSION: Community-acquired pneumonia, congestive heart failure, possible aspiration, and large effusion. PLAN: Thoracentesis, antibiotic therapy. Code status to be discussed with the daughter. Thank you for this kind referral. MD JOEL Zamora/ENRRIQUE /[id number]
[2019-01-23] VITALS (25 sets, daily range): BP systolic 112–148; BP diastolic 48–70
[2019-01-23] MEDS: IPRATROPIUM BROMIDE 0.02% 2.5 ML NEB NEB SCH ×4 (02:05→19:45)
[2019-01-23] MEDS: LEVALBUTEROL HCL SOLN NEBU 1.25 MG/3 ML NEB INH SCH ×4 (02:05→19:00)
[2019-01-23] MEDS: LEVOTHYROXINE SODIUM 50 MCG TAB PO SCH (05:03)
[2019-01-23 05:16] LABS: BASOPHILS # (AUTO) 0.1 (0.0-0.1); BASOPHILS % 0.2 % (0.0-1.0); HEMATOCRIT 37.9 % (34.2-44.1); HEMOGLOBIN 11.6 g/dL (12.0-16.0); LYMPHOCYTES # (AUTO) 1.2 (1.0-3.2); LYMPHOCYTES % 5.3 % (18.0-39.1); MEAN CORPUSCULAR HEMOGLOBIN 30.1 pg (28-32); MEAN CORPUSCULAR HGB CONC 30.6 g/dL (31-35); MEAN CORPUSCULAR VOLUME 98.2 fL (81-99); MONOCYTES # (AUTO) 2.3 (0.2-0.8); NEUTROPHILS # (AUTO) 16.5 (2.1-6.9); NEUTROPHILS % 72.7 % (38.7-80.0); PLATELET COUNT 416 x10e3/uL (140-360); RED BLOOD COUNT 3.86 x10e6/uL (3.6-5.1); RED CELL DISTRIBUTION WIDTH 20.6 % (11.7-14.4)
[2019-01-23 05:47] LABS: ANION GAP 13.5 mmol/L (8-16); BLOOD UREA NITROGEN 39 mg/dL (7-26); BUN/CREATININE RATIO 54 (6-25); CALCIUM 8.9 mg/dL (8.4-10.2); CARBON DIOXIDE 29 mmol/L (22-29); CHLORIDE 101 mmol/L (98-107); CREATININE, SERUM 0.72 mg/dL (0.57-1.11); EST GLOMERULAR FILTRATION RATE > 60 ML/MIN (60-); GLUCOSE 153 mg/dL (74-118); POTASSIUM 4.5 mmol/L (3.5-5.1); SODIUM 139 mmol/L (136-145)
--- NOTE | 2019-01-23 06:19 | Diagnostic Imaging Report ---
EXAMINATION: CHEST SINGLE (PORTABLE) INDICATION: sob COMPARISON: Chest CT and x-ray 01/21/2019 FINDINGS: AP view TUBES and LINES: Right chest wall cardiac pacer. LUNGS: Bibasilar opacities likely representing atelectasis with effusion, increased on the right. Stable edema. PLEURA: Moderate pleural effusions. No pneumothorax. HEART AND MEDIASTINUM: Stable moderate enlargement of the cardiac silhouette. BONES AND SOFT TISSUES: No acute osseous lesion. Soft tissues are unremarkable. UPPER ABDOMEN: No free air under the diaphragm. IMPRESSION: Interstitial edema with moderate pleural effusions and adjacent atelectasis. Signed by: DR. Sergei Espinoza MD on 01/23/2019 6:15 AM
[2019-01-23] MEDS: CHOLESTYRAMINE 4 GM PACKET PO SCH ×2 (07:00→20:00)
[2019-01-23 09:00] LABS: LYMPHOCYTES % (MANUAL) 6 % (19-48); MONOCYTES % (MANUAL) 6 % (3.4-9.0); MYELOCYTES % (MANUAL) 5 % (0-0); NEUTROPHILS % (MANUAL) 83 % (40-74)
[2019-01-23] MEDS: MULTIVITAMINS/MINERALS TAB PO SCH (09:00)
[2019-01-23 09:01] LABS: PLATELET ESTIMATE SLIGHTLY INCREASED; PLATELET MORPHOLOGY COMMENT NORMAL
[2019-01-23 09:02] LABS: RBC MORPHOLOGY COMMENT NORMAL
[2019-01-23] MEDS: LISINOPRIL 2.5 MG TAB PO SCH (09:30)
[2019-01-23] MEDS: FAMOTIDINE 20 MG TAB PO SCH (09:30)
[2019-01-23] MEDS: METOPROLOL SUCCINATE 50 MG TAB XL PO SCH (09:30)
[2019-01-23] MEDS: NIFEDIPINE CR 30 MG TAB PO SCH (09:30)
[2019-01-23] MEDS: GABAPENTIN 100 MG CAP PO SCH ×2 (09:30→17:00)
[2019-01-23] MEDS: VANCOMYCIN 250MG/5ML ORAL SOLN PO SCH ×3 (09:30→20:56)
[2019-01-23] MEDS: POTASSIUM CHLORIDE 10MEQ EA PO SCH (09:30)
[2019-01-23] MEDS: OLOPATADINE 5 ML BTL OP SCH (09:35)
[2019-01-23] MEDS: CEFTRIAXONE SOD 1 GM/NS 50 ML 50 ML IV SCH (09:35)
[2019-01-23] MEDS: FUROSEMIDE INJ 10 MG/ML 4 ML VIAL IV SCH (09:35)
--- NOTE | 2019-01-23 14:52 | NUR ---
Nutrition Intervention Note RD Recommendation(s) for Physician: - Liberalize diet to regular in order to increase PO intake - Rec Ensure Enlive TID to promote protein-calorie intake - Consider EN if appetite continues to be poor - Encourage PO and hydration - The patient meets criteria for MODERATE protein-calorie malnutrition. Plan of Care: RD following, monitoring for tolerance and adequacy, ONS rec Nutrition reason for involvement: Diagnosis RD Assessment 01/23 - Chart reviewed. 83yo F, who was admitted for SOB. Pt was discharged from [facility] on 01/20. She was well known to me from her previous admission. Visited pt in the room. Pt has had poor appetite since her last hospital stay. RN has been giving pt Ensure but pt didnt want to drink them. Caregiver and daughter on bedside to encourage PO and help with feeding. No complains of nausea or vomiting reported. LBM 3/. Pt denied any chewing or swallowing difficulty. Stable weight. Poor PO intake was mostly due to her medical condition. Will continue to monitor and follow. Principal Problems/Diagnoses: Community-acquired pneumonia, congestive heart failure, possible aspiration, and large effusion. PMH: Atrial fibrillation, on anticoagulant therapy, dyslipidemia, hypertension, osteoporosis, rheumatoid arthritis, hypothyroidism GI: abdomen flat, soft, non-tender, LBM 3/5 Skin: No pressure wound noted Labs: (01/23) BUN 39 H, Glucose 153 H Meds: lasix, K dur, vancomycin, pepcid Ht: 64in Wt: 118.5lb BMI: 17.9kg/m2 IBW: 120lb Malnutrition Evaluation (01/23) The patient does not meet criteria for a specified degree of malnutrition at this time. Will re-evaluate at follow-up as appropriate. Nutrition Prescription (Diet Order): GI soft diet Estimated Nutritional Needs: Calories: 1620 - 1890kcal (30-35kcal/kg/d) Weight used: Current BW Protein: 81 - 108g (1.5-2g/kg/d) Weight used: Current BW Diet Adequacy: Not meeting calorie needs, Not meeting protein needs Diet Education Needs Assessment: Diet education not indicated. Nutrition Care Level: mod Nutrition Diagnosis: Inadequate oral intake related to acute medical illness as evidenced by poor appetite and ~25% PO. Goal: Patient will meet 75-100% of estimated needs by follow up Progress: N/A Interventions: General healthful diet, Commercial beverage Monitoring/Evaluation: Total energy intake, Total protein intake, diet, Liquid supplement, Weight change Signed: Sis Go, MS, RD, LD
[2019-01-23] MEDS: AZITHROMYCIN 500MG/NS 250 ML 250 ML IV SCH (18:23)
--- NOTE | 2019-01-23 18:44 | NUR ---
700ml off of right sided thoracentesis
--- NOTE | 2019-01-23 19:30 | NUR ---
Received patient calm in bed, vitals stable but patient confused.
[2019-01-23] MEDS: LEVALBUTEROL HCL SOLN NEBU 1.25 MG/3 ML NEB INH PRN (19:45)
[2019-01-23 19:55] LABS: BODY FLUID TYPE PLEURAL
[2019-01-23 19:56] LABS: BODY FLUID APPEARANCE CLOUDY
[2019-01-23 19:59] LABS: BODY FLUID COLOR RED
--- NOTE | 2019-01-23 20:03 | Diagnostic Imaging Report ---
A single frontal view of the chest. HISTORY: post thorcentesis COMPARISON: Chest radiograph January 23, 2019 at 0546 DISCUSSION: Portable technique, limits sensitivity of the exam. Soft tissue attenuation partially limits sensitivity of the exam. Overlying artifacts, tubes and lines markedly limits the evaluation. Tubes/Lines: None Lungs and pleura: Slightly improved aeration of the right lung. Diffusely increased interstitial markings. Left basilar confluent opacity. No definite pneumothorax. Heart and mediastinum: The left heart border is partially obscured. The central pulmonary vasculature remains enlarged. Bones and soft tissues: Appear unremarkable, given this limited exam. IMPRESSION: 1. Moderate left pleural effusion with adjacent atelectasis versus consolidation. Recommend short term follow up routine PA and lateral chest radiographs, in 6-8 weeks, to evaluate for resolution. 2. Central pulmonary vascular congestion and moderate pulmonary edema. Signed by: Dr. Ariel Figueroa D.O., M.M.M. on 01/23/2019 8:00 PM
[2019-01-23 20:11] LABS: RBC,BODY FLUID 1094 cells/uL; WBC,BODY FLUID 28 cells/uL
[2019-01-23 20:42] LABS: LYMPHOCYTES,BODY FLUID 44 %; MONO/MACROPHG,BODY FLUID 49 %; NEUTROPHILS,BODY FLUID 3 %; OTHER CELLS,BODY FLUID 4 %
[2019-01-24] VITALS (25 sets, daily range): BP systolic 116–148; BP diastolic 59–94
[2019-01-24] MEDS: LEVALBUTEROL HCL SOLN NEBU 1.25 MG/3 ML NEB INH PRN ×4 (00:30→19:30)
[2019-01-24] MEDS: IPRATROPIUM BROMIDE 0.02% 2.5 ML NEB NEB SCH ×4 (00:30→19:45)
[2019-01-24] MEDS: LEVALBUTEROL HCL SOLN NEBU 1.25 MG/3 ML NEB INH SCH ×4 (01:00→19:00)
[2019-01-24 05:01] LABS: BASOPHILS # (AUTO) 0.1 (0.0-0.1); BASOPHILS % 0.3 % (0.0-1.0); HEMATOCRIT 35.6 % (34.2-44.1); HEMOGLOBIN 11.3 g/dL (12.0-16.0); LYMPHOCYTES # (AUTO) 0.7 (1.0-3.2); LYMPHOCYTES % 4.1 % (18.0-39.1); MEAN CORPUSCULAR HEMOGLOBIN 30.4 pg (28-32); MEAN CORPUSCULAR HGB CONC 31.7 g/dL (31-35); MEAN CORPUSCULAR VOLUME 95.7 fL (81-99); MONOCYTES # (AUTO) 1.8 (0.2-0.8); MONOCYTES % 10.4 % (4.4-11.3); NEUTROPHILS # (AUTO) 13.5 (2.1-6.9); NEUTROPHILS % 76.4 % (38.7-80.0); PLATELET COUNT 402 x10e3/uL (140-360); RED BLOOD COUNT 3.72 x10e6/uL (3.6-5.1); RED CELL DISTRIBUTION WIDTH 21.3 % (11.7-14.4)
[2019-01-24 05:18] LABS: INR 1.03
[2019-01-24 05:27] LABS: ANION GAP 12.9 mmol/L (8-16); BLOOD UREA NITROGEN 29 mg/dL (7-26); BUN/CREATININE RATIO 45 (6-25); CALCIUM 8.7 mg/dL (8.4-10.2); CARBON DIOXIDE 27 mmol/L (22-29); CHLORIDE 103 mmol/L (98-107); CREATININE, SERUM 0.64 mg/dL (0.57-1.11); EST GLOMERULAR FILTRATION RATE > 60 ML/MIN (60-); GLUCOSE 110 mg/dL (74-118); POTASSIUM 3.9 mmol/L (3.5-5.1); SODIUM 139 mmol/L (136-145)
[2019-01-24] MEDS: LEVOTHYROXINE SODIUM 50 MCG TAB PO SCH (06:00)
--- NOTE | 2019-01-24 06:56 | NUR ---
Patient handed over stable
--- NOTE | 2019-01-24 07:03 | Diagnostic Imaging Report ---
EXAMINATION: CHEST SINGLE (PORTABLE) INDICATION: sob COMPARISON: Chest x-ray 01/23/2019, chest CT 01/21/2019 FINDINGS: AP view TUBES and LINES: Right chest wall cardiac pacer. LUNGS: Stable bibasilar opacities likely representing atelectasis. Stable pulmonary edema. PLEURA: Small right and moderate left pleural effusions. HEART AND MEDIASTINUM: Stable enlargement of the cardiac silhouette. There are atherosclerotic calcifications within the aorta. BONES AND SOFT TISSUES: No acute osseous lesion. Soft tissues are unremarkable. UPPER ABDOMEN: No free air under the diaphragm. IMPRESSION: Stable pulmonary edema. Moderate left and small right pleural effusions with adjacent atelectasis. Superimposed infection difficult to exclude. Signed by: DR. Sergei Espinoza MD on 01/24/2019 7:00 AM
[2019-01-24 08:05] LABS: EOSINOPHILS % (MANUAL) 1 % (0-7); LYMPHOCYTES % (MANUAL) 6 % (19-48); MONOCYTES % (MANUAL) 11 % (3.4-9.0); NEUTROPHILS % (MANUAL) 79 % (40-74); PROMYELOCYTES % (MANUAL) 3 % (0-0)
[2019-01-24] MEDS: CEFTRIAXONE SOD 1 GM/NS 50 ML 50 ML IV SCH (08:19)
[2019-01-24] MEDS: FUROSEMIDE INJ 10 MG/ML 4 ML VIAL IV SCH (08:19)
[2019-01-24] MEDS: POTASSIUM CHLORIDE 10MEQ EA PO SCH (08:20)
[2019-01-24] MEDS: GABAPENTIN 100 MG CAP PO SCH ×2 (08:20→16:36)
[2019-01-24] MEDS: MULTIVITAMINS/MINERALS TAB PO SCH (08:20)
[2019-01-24] MEDS: METOPROLOL SUCCINATE 50 MG TAB XL PO SCH (08:20)
[2019-01-24] MEDS: LISINOPRIL 2.5 MG TAB PO SCH (08:20)
[2019-01-24] MEDS: VANCOMYCIN 250MG/5ML ORAL SOLN PO SCH ×3 (08:21→20:52)
[2019-01-24] MEDS: NIFEDIPINE CR 30 MG TAB PO SCH (08:21)
[2019-01-24] MEDS: FAMOTIDINE 20 MG TAB PO SCH (08:21)
[2019-01-24] MEDS: HYDROCODONE/APAP 5MG-325MG TAB PO PRN (08:41)
[2019-01-24] MEDS: OLOPATADINE 5 ML BTL OP SCH (09:00)
[2019-01-24] MEDS: CHOLESTYRAMINE 4 GM PACKET PO SCH ×2 (09:30→20:52)
[2019-01-24] MEDS: ENOXAPARIN SOD INJ 40 MG/0.4 ML SYR SC SCH (16:36)
[2019-01-24] MEDS: AZITHROMYCIN 500MG/NS 250 ML 250 ML IV SCH (16:36)
--- NOTE | 2019-01-24 17:46 | NUR ---
daughter and sole taylor came to discuss peg tube with her mother. her mom is aaox1, awake, but confused, doesnt know the president, the year. they want to go ahead and proceed with peg tube placement. dr. ozuna has been consulted.
[2019-01-25] VITALS (24 sets, daily range): BP systolic 103–158; BP diastolic 54–85
[2019-01-25] MEDS: IPRATROPIUM BROMIDE 0.02% 2.5 ML NEB NEB SCH ×4 (01:00→19:10)
[2019-01-25] MEDS: LEVALBUTEROL HCL SOLN NEBU 1.25 MG/3 ML NEB INH PRN (01:00)
[2019-01-25] MEDS: LEVALBUTEROL HCL SOLN NEBU 1.25 MG/3 ML NEB INH SCH ×2 (01:00→07:35)
--- NOTE | 2019-01-25 01:15 | NUR ---
Dr Jasmine Browningd in to see patient. He spoke with daughter, Zoe Tineo, who is POA. She agreed to PEG tube placement. Telephone consent obtained by myself and Ellen MELGAR
[2019-01-25] MEDS: LEVOTHYROXINE SODIUM 50 MCG TAB PO SCH (05:58)
[2019-01-25] MEDS: CHOLESTYRAMINE 4 GM PACKET PO SCH ×2 (07:00→19:00)
--- NOTE | 2019-01-25 07:25 | Diagnostic Imaging Report ---
Procedure: Ultrasound-guided right diagnostic and therapeutic thoracentesis. cut out and marking machine operator: Radha Mcmullen MD Pre-operative diagnosis: Moderate to large right pleural effusion Post-operative diagnosis: Resolution of right sided pleural effusion Conscious Sedation: None Additional Medications: Lidocaine 1% for local anesthesia Contrast used: None Estimated blood loss: <5 cc Blood proximal administered: None Specimens: 700 cc serous fluid Implants: None Condition at completion: Stable Disposition: In ICU DISCUSSION: Informed consent was obtained and documented in the medical record. The patient was placed in the lateral decubitus position. The right posterolateral chest wall was prepped and draped in the standard sterile fashion. A suitable percutaneous intercostal approach to the right pleural space was identified and the overlying skin was infiltrated with 1% lidocaine for local anesthesia. Moderate to large right pleural effusion was identified on ultrasound. Then under continuous sonographic guidance, a 5 [place] Yueh needle catheter was advanced into the pleural space. The catheter was advanced off the needle and connected to vacuum bottle with subsequent evacuation of 700 cc of serous fluid. The catheter was removed and a sterile, occlusive dressing was applied. Postprocedure sonographic image showed resolved effusion. The patient tolerated the procedure well without immediate complication. Sample was sent to lab. IMPRESSION: Ultrasound-guided diagnostic and therapeutic right thoracentesis with evacuation of 700 cc of serous fluid. Signed by: Dr. Radha Mcmullen MD on 01/25/2019 7:22 AM
[2019-01-25] MEDS: FUROSEMIDE INJ 10 MG/ML 4 ML VIAL IV SCH (09:11)
[2019-01-25] MEDS: CEFTRIAXONE SOD 1 GM/NS 50 ML 50 ML IV SCH (09:11)
[2019-01-25] MEDS: OLOPATADINE 5 ML BTL OP SCH (09:11)
[2019-01-25] MEDS: LISINOPRIL 2.5 MG TAB PO SCH (09:45)
[2019-01-25] MEDS: FAMOTIDINE 20 MG TAB PO SCH (09:45)
[2019-01-25] MEDS: POTASSIUM CHLORIDE 10MEQ EA PO SCH (09:45)
[2019-01-25] MEDS: VANCOMYCIN 250MG/5ML ORAL SOLN PO SCH ×3 (09:45→22:11)
[2019-01-25] MEDS: GABAPENTIN 100 MG CAP PO SCH ×2 (09:45→18:07)
[2019-01-25] MEDS: NIFEDIPINE CR 30 MG TAB PO SCH (09:45)
[2019-01-25] MEDS: METOPROLOL SUCCINATE 50 MG TAB XL PO SCH (09:45)
[2019-01-25] MEDS: MULTIVITAMINS/MINERALS TAB PO SCH (09:45)
[2019-01-25] MEDS: HYDROCODONE/APAP 5MG-325MG TAB PO PRN (12:11)
[2019-01-25] MEDS: LEVALBUTEROL HCL SOLN NEBU 0.63 MG/3 ML NEB IH SCH ×2 (13:19→19:10)
--- NOTE | 2019-01-25 15:12 | NUR ---
WOUND CARE CONSULTATION - INITIAL EVALUATION Patient admitted from home for CHF, Fever and Leukocytosis. HX: Atrial fibrillation, on anticoagulant therapy, dyslipidemia, hypertension, osteoporosis, rheumatoid arthritis, hypothyroidism, Hysterectomy, Permanent Pacemaker, breast surgery, mastectomy, lumpectomy. - Wound care consulted for Sacral ulcer evaluation: WBC17.71 HGB11.3 HCT35.6 NEUT%76.4 BBD953 IMPRESSION: 1. Left Sacro-gluteal Left- DTI RECOMMENDATION: 1. Sacro-gluteal Left- DTI- - Cleanse wound with NS and 4x4 gauze - Apply Venelex and Cover with Allevyn Foam Sacrum Dressing Daily and PRN Soiling' 2.Continue Alternating Pressure Air Mattress 3. Turn and Reposition every 2 Hrs 4. Bilateral Heel Protectors While in Bed 5. Continue Moderate PUP. 6. Shear Friction Precautions. Addendum: 01/25/19 at 1518 by Oren Fisher RN Amended: Links added.
[2019-01-25] MEDS: ENOXAPARIN SOD INJ 40 MG/0.4 ML SYR SC SCH (18:07)
[2019-01-25] MEDS: AZITHROMYCIN 500MG/NS 250 ML 250 ML IV SCH (18:07)
[2019-01-26] VITALS (22 sets, daily range): BP systolic 109–149; BP diastolic 51–76
[2019-01-26] MEDS: IPRATROPIUM BROMIDE 0.02% 2.5 ML NEB NEB SCH ×5 (02:00→22:40)
[2019-01-26] MEDS: LEVALBUTEROL HCL SOLN NEBU 0.63 MG/3 ML NEB IH SCH ×5 (02:00→22:40)
[2019-01-26 05:10] LABS: BASOPHILS # (AUTO) 0.2 (0.0-0.1); BASOPHILS % 0.8 % (0.0-1.0); EOSINOPHILS % 0.1 % (0.0-6.0); HEMATOCRIT 36.8 % (34.2-44.1); HEMOGLOBIN 11.1 g/dL (12.0-16.0); LYMPHOCYTES % 5.7 % (18.0-39.1); MEAN CORPUSCULAR HGB CONC 30.2 g/dL (31-35); MEAN CORPUSCULAR VOLUME 99.5 fL (81-99); MONOCYTES # (AUTO) 1.8 (0.2-0.8); MONOCYTES % 9.9 % (4.4-11.3); NEUTROPHILS # (AUTO) 13.7 (2.1-6.9); NEUTROPHILS % 77.1 % (38.7-80.0); PLATELET COUNT 445 x10e3/uL (140-360); RED CELL DISTRIBUTION WIDTH 21.6 % (11.7-14.4)
[2019-01-26 05:37] LABS: ALANINE AMINOTRANSFERASE 13 IU/L (0-55); ALBUMIN 2.4 g/dL (3.5-5.0); ALBUMIN/GLOBULIN RATIO 0.8 (0.8-2.0); ALKALINE PHOSPHATASE 75 IU/L (40-150); ANION GAP 13.2 mmol/L (8-16); BLOOD UREA NITROGEN 24 mg/dL (7-26); BUN/CREATININE RATIO 34 (6-25); CALCIUM 8.3 mg/dL (8.4-10.2); CARBON DIOXIDE 30 mmol/L (22-29); CHLORIDE 105 mmol/L (98-107); EST GLOMERULAR FILTRATION RATE > 60 ML/MIN (60-); GLUCOSE 102 mg/dL (74-118); POTASSIUM 3.2 mmol/L (3.5-5.1); SODIUM 145 mmol/L (136-145)
--- NOTE | 2019-01-26 05:56 | Diagnostic Imaging Report ---
EXAMINATION: CHEST SINGLE (PORTABLE) INDICATION: Shortness of breath. CHF, fever, leukocytosis COMPARISON: Chest x-ray 01/24/2019, chest CT 01/21/2019 FINDINGS: AP view TUBES and LINES: Right chest wall cardiac pacer. LUNGS: Worsening diffuse airspace opacities PLEURA: Small right and moderate left pleural effusions. HEART AND MEDIASTINUM: Stable enlargement of the cardiac silhouette. There are atherosclerotic calcifications within the aorta. BONES AND SOFT TISSUES: No acute osseous lesion. Soft tissues are unremarkable. UPPER ABDOMEN: No free air under the diaphragm. IMPRESSION: Worsening pulmonary edema with superimposed infection also possible. Moderate left and small right pleural effusions with adjacent atelectasis. Signed by: DR. Sergei Espinoza MD on 01/26/2019 5:53 AM
[2019-01-26 06:05] LABS: MAGNESIUM 2.2 MG/DL (1.3-2.1); PHOSPHORUS 3.4 MG/DL (2.3-4.7)
[2019-01-26] MEDS: LEVOTHYROXINE SODIUM 50 MCG TAB PO SCH (06:24)
[2019-01-26] MEDS: CHOLESTYRAMINE 4 GM PACKET PO SCH ×2 (07:00→19:00)
[2019-01-26] MEDS: OLOPATADINE 5 ML BTL OP SCH (09:00)
[2019-01-26] MEDS: POTASSIUM CHLORIDE 10MEQ EA PO SCH (09:00)
[2019-01-26] MEDS: METOPROLOL SUCCINATE 50 MG TAB XL PO SCH (09:00)
[2019-01-26] MEDS: GABAPENTIN 100 MG CAP PO SCH ×2 (09:00→17:00)
[2019-01-26] MEDS: FAMOTIDINE 20 MG TAB PO SCH (09:00)
[2019-01-26] MEDS: LISINOPRIL 2.5 MG TAB PO SCH (09:00)
[2019-01-26] MEDS: NIFEDIPINE CR 30 MG TAB PO SCH (09:00)
[2019-01-26] MEDS: MULTIVITAMINS/MINERALS TAB PO SCH (09:00)
[2019-01-26] MEDS: BALSAM PERU/CASTOR OIL 60 GM OINT...G. TP SCH (09:14)
[2019-01-26] MEDS: FUROSEMIDE INJ 10 MG/ML 4 ML VIAL IV SCH (10:02)
[2019-01-26] MEDS: CEFTRIAXONE SOD 1 GM/NS 50 ML 50 ML IV SCH (10:02)
[2019-01-26] MEDS: VANCOMYCIN 250MG/5ML ORAL SOLN PO SCH (10:04)
[2019-01-26] MEDS ORDERED: SODIUM CHLORIDE 0.9% 250ML 250 ML ONE (11:18)
[2019-01-26] MEDS: POTASSIUM CHLORIDE 20MEQ/100ML 100 ML IV SCH ×2 (11:19→14:03)
[2019-01-26] MEDS ORDERED: MIDAZOLAM HCL 2 MG/2 ML VIAL ONE (13:15)
[2019-01-26 13:52] LABS: BAND NEUTROPHILS % (MANUAL) 2 %; LYMPHOCYTES % (MANUAL) 6 % (19-48); METAMYELOCYTES % (MANUAL) 1 % (0-0); MONOCYTES % (MANUAL) 8 % (3.4-9.0); MYELOCYTES % (MANUAL) 2 % (0-0); NEUTROPHILS % (MANUAL) 80 % (40-74); NUCLEATED RED BLOOD CELLS 1
[2019-01-26 13:53] LABS: PLATELET ESTIMATE ADEQUATE; PLATELET MORPHOLOGY COMMENT NORMAL
[2019-01-26 13:54] LABS: RBC MORPHOLOGY COMMENT ABNORMAL
[2019-01-26 14:12] LABS: POIKILOCYTOSIS SLIGHT
[2019-01-26] MEDS: ALPRAZOLAM 0.5 MG TAB PO PRN (14:12)
[2019-01-26] MEDS ORDERED: PROPOFOL IV EMULSION 10 MG/ML 50 ML VIAL ONE (15:14)
[2019-01-26] MEDS ORDERED: LIDOCAINE HCL 2% LOCAL INJ 5 ML SDV VIAL INJ ONE (15:14)
[2019-01-26] MEDS: AZITHROMYCIN 500MG/NS 250 ML 250 ML IV SCH (16:26)
[2019-01-26] MEDS: ENOXAPARIN SOD INJ 40 MG/0.4 ML SYR SC SCH (17:00)
--- NOTE | 2019-01-26 18:21 | NUR ---
patient leaving now to [facility] for egd with peg placement.
--- NOTE | 2019-01-26 20:15 | NUR ---
Pt returned to room from Endo. S/P PEG placement. PEG noted in LUQ. Dsg CDI. ABD binder in place. Pt is alert, but drowsy. Placed on BS monitor. 127/65, 81,(Paced) 98% on 2L/NC, RR 22. Positioned in bed for comfort, care tech @ BS.
[2019-01-27] VITALS (20 sets, daily range): BP systolic 116–168; BP diastolic 53–76
[2019-01-27] MEDS: TRAMADOL HCL 50 MG TAB PO PRN (01:21)
[2019-01-27] MEDS: IPRATROPIUM BROMIDE 0.02% 2.5 ML NEB NEB SCH ×3 (03:30→20:20)
[2019-01-27] MEDS: LEVALBUTEROL HCL SOLN NEBU 0.63 MG/3 ML NEB IH SCH ×3 (03:30→20:20)
[2019-01-27 05:06] LABS: BASOPHILS # (AUTO) 0.1 (0.0-0.1); BASOPHILS % 0.9 % (0.0-1.0); EOSINOPHILS % 0.1 % (0.0-6.0); HEMATOCRIT 36.4 % (34.2-44.1); HEMOGLOBIN 11.1 g/dL (12.0-16.0); LYMPHOCYTES # (AUTO) 0.8 (1.0-3.2); LYMPHOCYTES % 5.6 % (18.0-39.1); MEAN CORPUSCULAR HEMOGLOBIN 30.2 pg (28-32); MEAN CORPUSCULAR HGB CONC 30.5 g/dL (31-35); MEAN CORPUSCULAR VOLUME 98.9 fL (81-99); MONOCYTES # (AUTO) 1.8 (0.2-0.8); MONOCYTES % 12.6 % (4.4-11.3); NEUTROPHILS # (AUTO) 10.5 (2.1-6.9); PLATELET COUNT 463 x10e3/uL (140-360); RED BLOOD COUNT 3.68 x10e6/uL (3.6-5.1); RED CELL DISTRIBUTION WIDTH 21.8 % (11.7-14.4)
[2019-01-27 05:33] LABS: ANION GAP 16.2 mmol/L (8-16); BLOOD UREA NITROGEN 28 mg/dL (7-26); BUN/CREATININE RATIO 38 (6-25); CALCIUM 8.1 mg/dL (8.4-10.2); CARBON DIOXIDE 28 mmol/L (22-29); CHLORIDE 108 mmol/L (98-107); CREATININE, SERUM 0.73 mg/dL (0.57-1.11); EST GLOMERULAR FILTRATION RATE > 60 ML/MIN (60-); GLUCOSE 99 mg/dL (74-118); POTASSIUM 3.2 mmol/L (3.5-5.1); SODIUM 149 mmol/L (136-145)
[2019-01-27] MEDS: CHOLESTYRAMINE 4 GM PACKET PO SCH ×2 (07:00→19:00)
[2019-01-27] MEDS: LEVOTHYROXINE SODIUM 50 MCG TAB PO SCH (08:46)
[2019-01-27] MEDS: FUROSEMIDE INJ 10 MG/ML 4 ML VIAL IV SCH (08:46)
[2019-01-27] MEDS: CEFTRIAXONE SOD 1 GM/NS 50 ML 50 ML IV SCH (08:46)
[2019-01-27] MEDS: POTASSIUM CHLORIDE 10MEQ EA PO SCH (08:46)
[2019-01-27] MEDS: NIFEDIPINE CR 30 MG TAB PO SCH (08:47)
[2019-01-27] MEDS: GABAPENTIN 100 MG CAP PO SCH ×2 (08:47→18:00)
[2019-01-27] MEDS: LISINOPRIL 2.5 MG TAB PO SCH (08:47)
[2019-01-27] MEDS: BALSAM PERU/CASTOR OIL 60 GM OINT...G. TP SCH (08:47)
[2019-01-27] MEDS: FAMOTIDINE 20 MG TAB PO SCH (08:47)
[2019-01-27] MEDS: METOPROLOL SUCCINATE 50 MG TAB XL PO SCH (08:47)
[2019-01-27] MEDS: MULTIVITAMINS/MINERALS TAB PO SCH (08:47)
[2019-01-27] MEDS: OLOPATADINE 5 ML BTL OP SCH (08:48)
--- NOTE | 2019-01-27 08:58 | Operative Report ---
DATE OF PROCEDURE: 01/26/2019 SURGEON: Teodoro Saenz MD PROCEDURE: Esophagogastroduodenoscopy and percutaneous endoscopic gastrostomy tube placement. INDICATIONS FOR PROCEDURE: History of CA of the esophagus, severe malnutrition, patient not eating. MEDICATION: The patient was done under MAC. Please see anesthesiologist's note. PROCEDURE IN DETAIL: With the patient in the supine position, a flexible fiberoptic Olympus gastroscope was introduced into the esophagus under direct visualization without any difficulty. The distal esophageal mucosa was friable. The scope was then advanced with ease into the stomach. Mucosa overlying the antrum and the body revealed some patchy erythema. Pylorus was of normal contour and shape, was intubated with ease and the scope was advanced all the way to the second portion of the duodenum. The scope was then withdrawn slowly. Mucosa overlying the proximal second portion and the duodenal bulb grossly appeared to be within normal limits. The scope was then withdrawn back into the stomach and retroflexed. Mucosa overlying the fundus and the cardia appeared to be within normal limits. The scope was then straightened out. The PEG tube insertion was carried out after delineating a safe entry point per external digital palpation and transabdominal illumination. The scope was subsequently withdrawn after documenting a good positioning of the intragastric bumper. The patient tolerated the procedure well. IMPRESSION: 1. Distal esophagitis. 2. Gastritis. 3. Percutaneous endoscopic gastrostomy tube placement carried out in the usual fashion. The patient tolerated the procedure well. Percutaneous endoscopic gastrostomy tube to drain to gravity and a Reynolds bag x24 hours then can use abdominal binder. The patient remained n.p.o. x24 hours. Teodoro Saenz MD [facility] [place]/GABL /[id number] cc: Alexx Thomas MD
--- NOTE | 2019-01-27 10:06 | NUR ---
Dr. Bynum at bedside. reviewed plan of care, lab results and patient status. new orders received. pt in bed comfortably with eyes closed. no distress at this time.
[2019-01-27 10:14] LABS: BAND NEUTROPHILS % (MANUAL) 8 %; LYMPHOCYTES % (MANUAL) 5 % (19-48); MONOCYTES % (MANUAL) 14 % (3.4-9.0); NEUTROPHILS % (MANUAL) 73 % (40-74); PLATELET ESTIMATE MODERATELY INCREASED; PLATELET MORPHOLOGY COMMENT NORMAL; RBC MORPHOLOGY COMMENT NORMAL
[2019-01-27] MEDS ORDERED: POTASSIUM CHLORIDE 20MEQ/100ML 200 ML IV ONE (11:15)
--- NOTE | 2019-01-27 16:10 | NUR ---
Dr. Freeman covering for Dr Thomas today. okay to hold fluid restriction at this time as serum sodium level increasing. please encourage patient to drink water. plan to start tube feeds this evening with water flushes as well. patient sleeping all day but is now awake and participating with care. updated patients daughter and caregiver who are at the bedside with her plan of care. okay with with attending to downgrade patient.
[2019-01-27] MEDS: AZITHROMYCIN 500MG/NS 250 ML 250 ML IV SCH (18:00)
[2019-01-27] MEDS: ENOXAPARIN SOD INJ 40 MG/0.4 ML SYR SC SCH (18:00)
[2019-01-27] MEDS: HYDROCODONE/APAP 5MG-325MG TAB PO PRN (18:28)
--- NOTE | 2019-01-27 18:34 | Progress Note ---
DATE: 01/27/2019 Medicine Progress Note. I am covering for Dr. Thomas. SUBJECTIVE: The patient has been approximately here more than a week now. She has underlying diagnosis of esophageal cancer, now status post PEG tube placement. She is also being treated for acute exacerbation of COPD and CHF. The patient is currently in the ICU, but under med-surg status. The patient is currently doing well with no complaints. I discussed the case with the nursing staff. LAB FINDINGS: Show white count is 14, hemoglobin 11, hematocrit 36, platelets of 463. Coagulation, PT 14, INR 1. Chemistry, sodium 149, potassium 3.2, chloride 108, bicarb 28, anion gap of 16, BUN is 28, creatinine is 0.73, glucose is 99, calcium is 8.1. Urinalysis was negative. MICROBIOLOGY: Blood cultures were negative. IMAGING STUDIES: Chest x-ray shows worsening pulmonary edema with superimposed infection also possible. Moderate left and right small pleural effusion with adjacent atelectasis. PHYSICAL EXAMINATION: VITAL SIGNS: Temperature is 100.4, pulse 81, respiratory rate is23, blood pressure 128/68, pulse ox 98% on 3 L nasal cannula. GENERAL: No acute distress. Alert and oriented x3. Cooperative on exam. HEENT: Head normocephalic, atraumatic. Eyes, pupils equal, reactive to light bilaterally. Extraocular movements intact bilaterally. NECK: Supple. Good range of motion throughout. No evidence of any erythema or exudates in the posterior pharynx. Has poor dentition. PULMONARY: Clear to auscultation bilaterally. No wheezing, no rales, no rhonchi, no crackles appreciated. CARDIOVASCULAR: Positive S1, S2. No murmurs, rubs, or gallops appreciated. ABDOMEN: Soft, nondistended, nontender to palpation. Bowel sounds are present. MUSCULOSKELETAL: At baseline. NEUROLOGICAL: At baseline. SKIN: Intact. Warm to touch. PSYCHIATRIC: Normal affect and mood. EXTREMITIES: No edema. Good range of motion throughout. IMPRESSION: 1. Esophageal cancer, status post PEG tube placement. 2. History of congestive heart failure with exacerbation. 3. Chronic obstructive pulmonary disease exacerbation. 4. Probable pneumonia with pleural effusion. 5. Moderate protein-calorie malnutrition. 6. Alzheimer dementia. PLAN: At this time, she currently is status post PEG tube placement. Sodium level was found to be elevated, likely due to dehydration. At this time, decrease Lasix to 20 mg daily. Chest x-ray is consistent with pulmonary edema though and she is resting comfortably. At this time, we are not going to add any fluids. We are just going to see if she is able to tolerate more fluids by mouth. She will start tube feeds later today. She will continue on antibiotics as per underlying community-acquired pneumonia found in the chart. She is doing well at bedside at baseline with no other issues. We will get a.m. labs. MD GÓMEZ Guillaume/ENRRIQUE /[id number]
[2019-01-28] VITALS (13 sets, daily range): BP systolic 102–140; BP diastolic 46–96
[2019-01-28] MEDS: HYDROCODONE/APAP 5MG-325MG TAB PO PRN ×2 (00:41→16:10)
[2019-01-28] MEDS: LEVALBUTEROL HCL SOLN NEBU 0.63 MG/3 ML NEB IH SCH ×4 (01:00→19:45)
[2019-01-28] MEDS: IPRATROPIUM BROMIDE 0.02% 2.5 ML NEB NEB SCH ×4 (01:00→19:45)
[2019-01-28] MEDS: ALPRAZOLAM 0.5 MG TAB PO PRN ×2 (01:04→09:35)
[2019-01-28 05:06] LABS: BASOPHILS # (AUTO) 0.1 (0.0-0.1); BASOPHILS % 0.5 % (0.0-1.0); EOSINOPHILS % 0.1 % (0.0-6.0); HEMATOCRIT 36.6 % (34.2-44.1); HEMOGLOBIN 11.1 g/dL (12.0-16.0); LYMPHOCYTES # (AUTO) 1.3 (1.0-3.2); LYMPHOCYTES % 8.9 % (18.0-39.1); MEAN CORPUSCULAR HEMOGLOBIN 30.2 pg (28-32); MEAN CORPUSCULAR HGB CONC 30.3 g/dL (31-35); MEAN CORPUSCULAR VOLUME 99.5 fL (81-99); MONOCYTES # (AUTO) 2.1 (0.2-0.8); MONOCYTES % 14.6 % (4.4-11.3); NEUTROPHILS # (AUTO) 9.9 (2.1-6.9); NEUTROPHILS % 67.9 % (38.7-80.0); PLATELET COUNT 496 x10e3/uL (140-360); RED BLOOD COUNT 3.68 x10e6/uL (3.6-5.1); RED CELL DISTRIBUTION WIDTH 21.5 % (11.7-14.4)
[2019-01-28 05:30] LABS: ANION GAP 13.6 mmol/L (8-16); BLOOD UREA NITROGEN 28 mg/dL (7-26); BUN/CREATININE RATIO 38 (6-25); CALCIUM 8.4 mg/dL (8.4-10.2); CARBON DIOXIDE 29 mmol/L (22-29); CHLORIDE 108 mmol/L (98-107); CREATININE, SERUM 0.74 mg/dL (0.57-1.11); EST GLOMERULAR FILTRATION RATE > 60 ML/MIN (60-); GLUCOSE 138 mg/dL (74-118); POTASSIUM 3.6 mmol/L (3.5-5.1); SODIUM 147 mmol/L (136-145)
[2019-01-28] MEDS: MAGNESIUM HYDROXIDE 30 ML UDC PO PRN ×2 (05:36→18:30)
[2019-01-28] MEDS: TRAMADOL HCL 50 MG TAB PO PRN (05:43)
--- NOTE | 2019-01-28 06:10 | Diagnostic Imaging Report ---
EXAMINATION: CHEST SINGLE (PORTABLE) INDICATION: chf COMPARISON: Chest x-ray 01/26/2019, chest CT 01/21/2019 FINDINGS: AP view TUBES and LINES: Right chest wall dual-lead cardiac pacer. LUNGS: Stable diffuse airspace opacities PLEURA: Stable bilateral pleural effusions, left greater than right. HEART AND MEDIASTINUM: Stable enlargement of the cardiac silhouette. There are atherosclerotic calcifications within the aorta. BONES AND SOFT TISSUES: No acute osseous lesion. Soft tissues are unremarkable. UPPER ABDOMEN: No free air under the diaphragm. IMPRESSION: Stable pulmonary edema and bilateral pleural effusions with superimposed infection also possible. Signed by: DR. Sergei Espinoza MD on 01/28/2019 6:07 AM
[2019-01-28] MEDS: LEVOTHYROXINE SODIUM 50 MCG TAB PO SCH (06:14)
[2019-01-28] MEDS: CHOLESTYRAMINE 4 GM PACKET PO SCH ×2 (07:00→18:30)
[2019-01-28] MEDS ORDERED: FUROSEMIDE INJ 10 MG/ML 4 ML VIAL IV SCH (08:00)
--- NOTE | 2019-01-28 08:57 | NUR ---
called Dr. Mcdonald. patient weaker today, labored breathing noted. rr 25-30bpm. discussed with Dr. Mcdonald. administered scheduled iv lasix, applied bipap and repositioned patient in bed. increased hob to 40degrees. IR consult placed to evaluate need for thoracentesis. will continue to assess and monitor interventions.
[2019-01-28] MEDS: MULTIVITAMINS/MINERALS TAB PO SCH (09:00)
[2019-01-28] MEDS: LISINOPRIL 2.5 MG TAB PO SCH (09:00)
[2019-01-28] MEDS: NIFEDIPINE CR 30 MG TAB PO SCH (09:00)
[2019-01-28] MEDS: BALSAM PERU/CASTOR OIL 60 GM OINT...G. TP SCH (09:00)
[2019-01-28] MEDS: CEFTRIAXONE SOD 1 GM/NS 50 ML 50 ML IV SCH (09:00)
[2019-01-28] MEDS: METOPROLOL SUCCINATE 50 MG TAB XL PO SCH (09:00)
[2019-01-28] MEDS: POTASSIUM CHLORIDE 10MEQ EA PO SCH (09:00)
[2019-01-28] MEDS: GABAPENTIN 100 MG CAP PO SCH ×2 (09:00→18:29)
[2019-01-28] MEDS: FAMOTIDINE 20 MG TAB PO SCH (09:00)
[2019-01-28] MEDS: OLOPATADINE 5 ML BTL OP SCH (09:00)
[2019-01-28] MEDS: FUROSEMIDE INJ 10 MG/ML 4 ML VIAL IV SCH ×3 (12:00→23:54)
[2019-01-28] MEDS ORDERED: POTASSIUM CHLORIDE 20MEQ/100ML 300 ML IV ONE (12:00)
[2019-01-28] MEDS ORDERED: VANCOMYCIN 1GM/NS 250 ML 250 ML IV ONE (12:45)
--- NOTE | 2019-01-28 13:25 | NUR ---
Nutrition Intervention Note RD Recommendation(s) for Physician: - TF rec's: Recommend TF of Osmolite 1.2 with goal rate of 60 ml/hr (to provide 1728 kcal and 80 gm protein per day). - Water flushes and fluid management per MD. - Please monitor BMP with Mg and Phos closely. Replace low lytes as needed. - The patient meets criteria for MODERATE protein-calorie malnutrition. Plan of Care: RD following, monitoring for tolerance and adequacy, EN rec's Nutrition reason for involvement: Follow up RD Assessment 01/28: Pt seen for follow up. Discussed during am rounds. Pt s/p PEG placement due to esophageal cancer. TF of Jevity 1.2 initiated on 01/27, currently tolerating at 20 ml/hr. Discussed POC with RN regarding TF rec's and goal rate. Pt on BiPAP and sleeping at time of visit, did not disturb. Possible thoracentesis per am rounds. 01/23 - Chart reviewed. 83yo F, who was admitted for SOB. Pt was discharged from [facility] on 01/20. She was well known to me from her previous admission. Visited pt in the room. Pt has had poor appetite since her last hospital stay. RN has been giving pt Ensure but pt didnt want to drink them. Caregiver and daughter on bedside to encourage PO and help with feeding. No complains of nausea or vomiting reported. LBM 01/22. Pt denied any chewing or swallowing difficulty. Stable weight. Poor PO intake was mostly due to her medical condition. Will continue to monitor and follow. Principal Problems/Diagnoses: Community-acquired pneumonia, congestive heart failure, possible aspiration, and large effusion. PMH: Atrial fibrillation, on anticoagulant therapy, dyslipidemia, hypertension, osteoporosis, rheumatoid arthritis, hypothyroidism GI: LBM 01/26 Skin: Sacral wound- on staging per assessment Labs: 01/28: Na 147, 01/26: MG 2.2 Meds: lasix, KCl IVPB, synthroid, MVI with minerals, abx, questran Ht: 64in Wt: 118.5lb BMI: 17.9kg/m2 IBW: 120lb Malnutrition Evaluation (01/23) The patient does not meet criteria for a specified degree of malnutrition at this time. Will re-evaluate at follow-up as appropriate. Nutrition Prescription (Diet Order): Jevity 1.2 at 20 ml/hr Estimated Nutritional Needs: Calories: 1620 - 1890kcal (30-35kcal/kg/d) Weight used: Current BW Protein: 81 - 108g (1.5-2g/kg/d) Weight used: Current BW Diet Adequacy: Not meeting calorie needs, Not meeting protein needs Diet Education Needs Assessment: Diet education not indicated. Nutrition Care Level: mod Nutrition Diagnosis: Inadequate oral intake related to acute medical illness as evidenced by poor appetite and ~25% PO. Goal: Patient will meet 75-100% of estimated needs by follow up Progress: Progressing Interventions: Enteral nutrition Monitoring/Evaluation: Total energy intake, Total protein intake, Formula/Solution, Weight change Signed: Esperanza Dexter RD, LD, CNSC
[2019-01-28 14:02] LABS: EOSINOPHILS % (MANUAL) 1 % (0-7); LYMPHOCYTES % (MANUAL) 24 % (19-48); MONOCYTES % (MANUAL) 8 % (3.4-9.0); NEUTROPHILS % (MANUAL) 63 % (40-74); NUCLEATED RED BLOOD CELLS 2
[2019-01-28 14:06] LABS: ANISOCYTOSIS SLIGHT; PLATELET ESTIMATE ADEQUATE; PLATELET MORPHOLOGY COMMENT NORMAL; RBC MORPHOLOGY COMMENT NORMAL
[2019-01-28] MEDS ORDERED: SODIUM CHLORIDE 0.9% 250ML 500 ML ONE (14:30)
[2019-01-28] MEDS: PIPER-TAZ 3.375 GM 50 ML IV SCH ×2 (15:53→22:25)
[2019-01-28] MEDS: ENOXAPARIN SOD INJ 40 MG/0.4 ML SYR SC SCH (17:00)
--- NOTE | 2019-01-28 17:04 | Progress Note ---
DATE: 01/28/2019 Medicine Progress Note I am covering for Dr. Thomas. SUBJECTIVE: This patient is still at baseline. She was very tachypneic today on exam, requiring BiPAP. She is in the process of getting a thoracentesis later today. PHYSICAL EXAMINATION: VITAL SIGNS: Temperature was 100.4, pulse is 82, respiratory rate is 18, blood pressure 129/56, and pulse ox 98%. She is currently on BiPAP as we speak. GENERAL: Currently on BiPAP, minimally responsive. HEENT: Normocephalic, atraumatic. Eyes; pupils are equal, round, and reactive to light bilaterally. Extraocular movements intact bilaterally. No evidence of erythema or exudates in the posterior pharynx. Has poor dentition. NECK: Supple. Good range of motion throughout. PULMONARY: Clear to auscultation bilaterally. No wheezing, rales or rhonchi. No guarding appreciated. CARDIOVASCULAR: Positive S1, S2. No murmurs, rubs, or gallops appreciated. ABDOMEN: Soft, nontender, nondistended on palpation. Bowel sounds present. MUSCULOSKELETAL: Strength is 5/5 throughout. No evidence of any muscle deficits on examination. No weakness appreciated. NEUROLOGIC: Cranial nerves II through XII grossly intact. No evidence of any neurological deficits on exam. SKIN: Intact. Warm to touch. Good cap refill. PSYCHIATRIC: Normal affect and mood. EXTREMITIES: No edema. Good range of motion throughout. LABORATORY DATA: White count 14, hemoglobin 11, hematocrit 36, and platelets of 496. Chemistry; sodium 147, potassium 3.6, chloride 108, bicarb 29, anion gap of 13, BUN is 28, creatinine is 0.74, and glucose is 138. Microbiology, none. IMPRESSION: 1. Esophageal cancer, status post PEG tube placement. 2. History of congestive heart failure with an acute exacerbation. 3. Chronic obstructive pulmonary disease exacerbation. 4. Probable pneumonia with pleural effusion. 5. Moderate protein-calorie malnutrition. 6. Alzheimer dementia. PLAN: At this time, the patient is on BiPAP, being managed by Pulmonary. She seems to be very comfortable right now on BiPAP. We will put on Lasix 40 mg IV q.6h x4 doses, first dose now. She is scheduled for thoracentesis later today. Receiving IV antibiotics for ongoing pneumonia. Pulmonary Critical Care is monitoring as well on this case. Labs reviewed. She will continue with tube feeds. Get a.m. labs. MD GÓMEZ Guillaume/ENRRIQUE /[id number]
--- NOTE | 2019-01-28 17:28 | Progress Note ---
DATE: 01/28/2019 ADDENDUM: I spoke with the daughter, Jamila, over the phone about code status. At this time, Jamila, wants DNI but not DNR. At this time, she is in agreement with chest compressions and using chemicals to revive the heart, but wants no intubation and had been updated into the system at this time. Nurse verifies this particular order and talked to the daughter, Jamila, by phone. At this time DNI has been placed in the system. MD GÓMEZ Guillaume/MODL /[id number]
--- NOTE | 2019-01-28 17:47 | Diagnostic Imaging Report ---
Exam: Ultrasound guided right chest thoracentesis dated 01/28/2019 at 4:33 PM. History: CHF with bilateral pleural effusions. Comparison: Chest x-ray performed 01/28/2019 Findings:Procedure performed at the bedside within the ICU with the patient decubitus, left side down. Local anesthesia with 1% Xylocaine was accomplished proceeded by sterile preparation. Utilizing ultrasound guidance a 5 [place] [employer] needle/catheter was placed into the right pleural space. Approximately 550 cc of fluid was withdrawn and sent to the laboratory for analysis. Patient tolerated procedure well. Post procedure chest x-ray was ordered. Impression: Ultrasound guided right chest thoracentesis with evacuation of 550 cc of serous fluid. Signed by: Dr. Eloy Castellano DO on 01/28/2019 5:43 PM
[2019-01-28] MEDS: AZITHROMYCIN 500MG/NS 250 ML 250 ML IV SCH (18:31)
--- NOTE | 2019-01-28 18:55 | NUR ---
IR at bedside right thoracentesis completed. 600ml bloody fluid removed. sent to lab for testing. lab orders place. pt tolerated procedure well. vss. post cxr completed. bed bath given. linens and wound care completed. patient able to wean from bipap this morning to nc 3L with good results.
--- NOTE | 2019-01-28 19:08 | Diagnostic Imaging Report ---
EXAMINATION: CHEST SINGLE (PORTABLE) INDICATION: ^post thoracentesis to right COMPARISON: Chest x-ray 01/28/2019 FINDINGS: AP view TUBES and LINES: Right-sided pacemaker with 2 intact wires. LUNGS: Lungs are well inflated. Bilateral patchy airspace opacities remain unchanged. Interstitial opacities remain unchanged. PLEURA: Significant improvement in right pleural effusion. Small left pleural effusion. HEART AND MEDIASTINUM: The cardiomediastinal silhouette is unremarkable. BONES AND SOFT TISSUES: No acute osseous lesion. Soft tissues are unremarkable. UPPER ABDOMEN: No free air under the diaphragm. IMPRESSION: 1. Interval right thoracentesis. No definite pneumothorax. 2. Unchanged bilateral airspace opacities. This likely represents pulmonary edema and multifocal pneumonia. Signed by: Dr. Jem Thompson M.D. on 01/28/2019 7:05 PM
--- NOTE | 2019-01-28 21:24 | NUR ---
REPORT GIVEN TO ANNY MELGAR, TRANSFERRED TO ROOM 203
[2019-01-29] VITALS (7 sets, daily range): BP systolic 97–130; BP diastolic 51–60
--- NOTE | 2019-01-29 00:41 | NUR ---
Dr. Sumit Saenz to see patient, order to increase tube feed to 50mL/hr
[2019-01-29] MEDS: IPRATROPIUM BROMIDE 0.02% 2.5 ML NEB NEB SCH ×4 (01:00→19:30)
[2019-01-29] MEDS: LEVALBUTEROL HCL SOLN NEBU 0.63 MG/3 ML NEB IH SCH ×4 (01:00→19:30)
[2019-01-29] MEDS: FUROSEMIDE INJ 10 MG/ML 4 ML VIAL IV SCH (06:05)
[2019-01-29] MEDS: PIPER-TAZ 3.375 GM 50 ML IV SCH ×3 (06:05→22:30)
[2019-01-29 06:15] LABS: BASOPHILS # (AUTO) 0.1 (0.0-0.1); BASOPHILS % 1.1 % (0.0-1.0); EOSINOPHILS % 0.3 % (0.0-6.0); HEMATOCRIT 34.9 % (34.2-44.1); HEMOGLOBIN 10.4 g/dL (12.0-16.0); LYMPHOCYTES # (AUTO) 1.5 (1.0-3.2); LYMPHOCYTES % 11.3 % (18.0-39.1); MEAN CORPUSCULAR HEMOGLOBIN 30.2 pg (28-32); MEAN CORPUSCULAR HGB CONC 29.8 g/dL (31-35); MEAN CORPUSCULAR VOLUME 101.5 fL (81-99); MONOCYTES # (AUTO) 1.9 (0.2-0.8); MONOCYTES % 14.1 % (4.4-11.3); NEUTROPHILS # (AUTO) 8.5 (2.1-6.9); NEUTROPHILS % 63.8 % (38.7-80.0); PLATELET COUNT 429 x10e3/uL (140-360); RED BLOOD COUNT 3.44 x10e6/uL (3.6-5.1); RED CELL DISTRIBUTION WIDTH 21.7 % (11.7-14.4)
[2019-01-29] MEDS: LEVOTHYROXINE SODIUM 50 MCG TAB PO SCH (06:24)
[2019-01-29 06:43] LABS: ANION GAP 11.7 mmol/L (8-16); BLOOD UREA NITROGEN 30 mg/dL (7-26); BUN/CREATININE RATIO 35 (6-25); CALCIUM 7.6 mg/dL (8.4-10.2); CARBON DIOXIDE 34 mmol/L (22-29); CHLORIDE 106 mmol/L (98-107); CREATININE, SERUM 0.86 mg/dL (0.57-1.11); EST GLOMERULAR FILTRATION RATE > 60 ML/MIN (60-); GLUCOSE 138 mg/dL (74-118); POTASSIUM 3.7 mmol/L (3.5-5.1); SODIUM 148 mmol/L (136-145)
--- NOTE | 2019-01-29 08:27 | NUR ---
CALLED DR. Kasey VALENZUELA'S OFFICE TO ASK IF PATIENT CAN HAVE SOME WATER TO DRINK AND IF PATIENT CAN HAVE BLOOD THINNERS PER THE REQUEST OF DR. HENNESSY, DRUMS TEACHER STATED THAT SHE WILL PAGE THE PHYSICIAN.
[2019-01-29] MEDS: OLOPATADINE 5 ML BTL OP SCH (09:00)
[2019-01-29 12:21] LABS: LYMPHOCYTES % (MANUAL) 8 % (19-48); MONOCYTES % (MANUAL) 22 % (3.4-9.0); MYELOCYTES % (MANUAL) 6 % (0-0); NEUTROPHILS % (MANUAL) 61 % (40-74); NUCLEATED RED BLOOD CELLS 2; PROMYELOCYTES % (MANUAL) 3 % (0-0)
[2019-01-29 12:22] LABS: ANISOCYTOSIS SLIGHT; HYPOCHROMASIA SLIGHT; PLATELET ESTIMATE SLIGHTLY INCREASED; PLATELET MORPHOLOGY COMMENT NORMAL; RBC MORPHOLOGY COMMENT NORMAL
[2019-01-29] MEDS: CHOLESTYRAMINE 4 GM PACKET PO SCH ×2 (12:25→17:02)
[2019-01-29] MEDS: MULTIVITAMINS/MINERALS TAB PO SCH (12:30)
[2019-01-29] MEDS: LISINOPRIL 2.5 MG TAB PO SCH (12:30)
[2019-01-29] MEDS: POTASSIUM CHLORIDE 10MEQ EA PO SCH (12:30)
[2019-01-29] MEDS: GABAPENTIN 100 MG CAP PO SCH ×2 (12:30→17:06)
[2019-01-29] MEDS: FAMOTIDINE 20 MG TAB PO SCH (12:30)
[2019-01-29] MEDS: METOPROLOL SUCCINATE 50 MG TAB XL PO SCH (12:31)
[2019-01-29] MEDS: NIFEDIPINE CR 30 MG TAB PO SCH (12:31)
[2019-01-29] MEDS: BALSAM PERU/CASTOR OIL 60 GM OINT...G. TP SCH (12:32)
[2019-01-29] MEDS: HYDROCODONE/APAP 5MG-325MG TAB PO PRN (17:36)
--- NOTE | 2019-01-29 18:31 | Progress Note ---
DATE: 01/29/2019 Medicine Progress Note SUBJECTIVE: The patient is doing well today with no complaints. She is much more alert on examination. She did not receive any tube feeds. PHYSICAL EXAMINATION: VITAL SIGNS: Temperature is 97.7, pulse 98, respiratory rate 20, blood pressure 136/65, pulse ox 98% on 4 L nasal cannula. GENERAL: Not in acute distress, alert and oriented x3. Cooperative on examination. HEENT: Head is normocephalic, atraumatic. Eyes; pupils are equal, round, and reactive to light bilaterally. Extraocular movements are intact bilaterally. No evidence of erythema or exudates in the posterior pharynx. Has poor dentition. NECK: Supple. Good range of motion throughout. PULMONARY: Clear to auscultation bilaterally. No wheezing, no rales, no rhonchi, no crackles appreciated. CARDIOVASCULAR: Positive S1 and S2. No murmurs, rubs, or gallops appreciated. ABDOMEN: Soft, nondistended, and nontender to palpation. Bowel sounds are present. MUSCULOSKELETAL: Strength is 5/5 throughout. No evidence of any muscle deficits on examination. No weakness appreciated. NEUROLOGIC: Cranial nerves II through XII grossly intact. No evidence of any neurological deficits on exam. SKIN: Intact. Warm to touch. Good cap refill. PSYCHIATRIC: Normal affect and mood. EXTREMITIES: No edema. Good range of motion throughout. LABORATORY DATA: White count 13.2, hemoglobin 10.4, hematocrit 35, platelets of 429. Chemistries reviewed. Sodium is 148. Rest of the labs are stable. IMPRESSION: 1. Esophageal cancer, status post PEG tube placement. 2. History of congestive heart failure with acute exacerbation. 3. Chronic obstructive pulmonary disease exacerbation. 4. Probable pneumonia with pleural effusion. 5. Moderate protein-calorie malnutrition. 6. Alzheimer dementia. PLAN: At this time, continue with nasal cannula. She is now on tube feeds, doing well with no complaints. Get a.m. labs. Pulmonary is following as well. Titrate goal of tube feeds. We will get speech therapy evaluation as well. Work with PT and OT. Dr. Thomas will be available tomorrow. Remedios Freeman MD JSTracy/MODL /[id number]
[2019-01-29] MEDS ORDERED: SODIUM CHLORIDE 0.9% 250ML 250 ML ONE (22:22)
[2019-01-30] VITALS (7 sets, daily range): BP systolic 96–132; BP diastolic 53–70
[2019-01-30] MEDS: LEVALBUTEROL HCL SOLN NEBU 0.63 MG/3 ML NEB IH SCH ×5 (01:30→23:50)
[2019-01-30] MEDS: IPRATROPIUM BROMIDE 0.02% 2.5 ML NEB NEB SCH ×5 (01:30→23:50)
[2019-01-30] MEDS: PIPER-TAZ 3.375 GM 50 ML IV SCH (05:33)
[2019-01-30] MEDS: LEVOTHYROXINE SODIUM 50 MCG TAB PO SCH (05:51)
[2019-01-30] MEDS: CHOLESTYRAMINE 4 GM PACKET PO SCH ×2 (08:57→20:44)
[2019-01-30] MEDS ORDERED: FUROSEMIDE INJ 10 MG/ML 4 ML VIAL IV SCH (09:00)
[2019-01-30] MEDS: HYDROCODONE/APAP 5MG-325MG TAB PO PRN ×2 (09:25→22:26)
[2019-01-30] MEDS: FAMOTIDINE 20 MG TAB PO SCH (09:33)
[2019-01-30] MEDS: MULTIVITAMINS/MINERALS TAB PO SCH (09:33)
[2019-01-30] MEDS: OLOPATADINE 5 ML BTL OP SCH (09:33)
[2019-01-30] MEDS: FUROSEMIDE 40 MG TAB PO SCH (09:33)
[2019-01-30] MEDS: GABAPENTIN 100 MG CAP PO SCH ×2 (09:33→17:38)
[2019-01-30] MEDS: BALSAM PERU/CASTOR OIL 60 GM OINT...G. TP SCH (09:34)
[2019-01-30] MEDS: NIFEDIPINE CR 30 MG TAB PO SCH (09:36)
[2019-01-30] MEDS: METOPROLOL SUCCINATE 50 MG TAB XL PO SCH (09:36)
[2019-01-30] MEDS: LISINOPRIL 2.5 MG TAB PO SCH (09:36)
[2019-01-30] MEDS: POTASSIUM CHLORIDE 10MEQ EA PO SCH (09:37)
--- NOTE | 2019-01-30 09:41 | NUR ---
IMM letter delivered and explained. Signed copy in chart. Copy left at bedside with pt's caregiver.
[2019-01-30 10:16] LABS: INR 0.98; PROTHROMBIN TIME 13.5 seconds (11.9-14.5)
[2019-01-30] MEDS: METRONIDAZOLE 500 MG TAB PEG SCH ×2 (13:31→22:26)
[2019-01-30] MEDS: WARFARIN SOD 2.5 MG TAB PO SCH (17:37)
[2019-01-31] VITALS (8 sets, daily range): BP systolic 100–139; BP diastolic 56–77
[2019-01-31 05:39] LABS: BASOPHILS # (AUTO) 0.1 (0.0-0.1); BASOPHILS % 0.5 % (0.0-1.0); EOSINOPHILS # (AUTO) 0.1 (0.0-0.4); EOSINOPHILS % 0.7 % (0.0-6.0); HEMATOCRIT 34.2 % (34.2-44.1); HEMOGLOBIN 10.5 g/dL (12.0-16.0); LYMPHOCYTES # (AUTO) 1.9 (1.0-3.2); LYMPHOCYTES % 11.4 % (18.0-39.1); MEAN CORPUSCULAR HEMOGLOBIN 30.4 pg (28-32); MEAN CORPUSCULAR HGB CONC 30.7 g/dL (31-35); MEAN CORPUSCULAR VOLUME 99.1 fL (81-99); MONOCYTES # (AUTO) 1.9 (0.2-0.8); MONOCYTES % 11.4 % (4.4-11.3); NEUTROPHILS % 59.2 % (38.7-80.0); PLATELET COUNT 433 x10e3/uL (140-360); RED BLOOD COUNT 3.45 x10e6/uL (3.6-5.1); RED CELL DISTRIBUTION WIDTH 21.3 % (11.7-14.4)
[2019-01-31] MEDS: LEVOTHYROXINE SODIUM 50 MCG TAB PO SCH (05:51)
[2019-01-31] MEDS: METRONIDAZOLE 500 MG TAB PEG SCH ×3 (05:51→22:25)
[2019-01-31] MEDS: CHOLESTYRAMINE 4 GM PACKET PO SCH ×2 (05:51→20:20)
[2019-01-31 05:53] LABS: ANION GAP 11.5 mmol/L (8-16); BLOOD UREA NITROGEN 31 mg/dL (7-26); BUN/CREATININE RATIO 43 (6-25); CALCIUM 7.6 mg/dL (8.4-10.2); CARBON DIOXIDE 28 mmol/L (22-29); CHLORIDE 103 mmol/L (98-107); CREATININE, SERUM 0.72 mg/dL (0.57-1.11); EST GLOMERULAR FILTRATION RATE > 60 ML/MIN (60-); GLUCOSE 118 mg/dL (74-118); POTASSIUM 3.5 mmol/L (3.5-5.1); SODIUM 139 mmol/L (136-145)
[2019-01-31] MEDS: IPRATROPIUM BROMIDE 0.02% 2.5 ML NEB NEB SCH ×3 (07:00→19:20)
[2019-01-31] MEDS: LEVALBUTEROL HCL SOLN NEBU 0.63 MG/3 ML NEB IH SCH ×3 (07:00→19:20)
[2019-01-31] MEDS: FUROSEMIDE 40 MG TAB PO SCH (09:29)
[2019-01-31] MEDS: OLOPATADINE 5 ML BTL OP SCH (09:29)
[2019-01-31] MEDS: GABAPENTIN 100 MG CAP PO SCH ×2 (09:29→17:00)
[2019-01-31] MEDS: MULTIVITAMINS/MINERALS TAB PO SCH (09:29)
[2019-01-31] MEDS: METOPROLOL SUCCINATE 50 MG TAB XL PO SCH (09:30)
[2019-01-31] MEDS: FAMOTIDINE 20 MG TAB PO SCH (09:30)
[2019-01-31] MEDS: NIFEDIPINE CR 30 MG TAB PO SCH (09:30)
[2019-01-31] MEDS: LISINOPRIL 2.5 MG TAB PO SCH (09:30)
[2019-01-31] MEDS: POTASSIUM CHLORIDE 10MEQ EA PO SCH (09:30)
[2019-01-31] MEDS: BALSAM PERU/CASTOR OIL 60 GM OINT...G. TP SCH (09:30)
[2019-01-31 09:40] LABS: BAND NEUTROPHILS % (MANUAL) 1 %; LYMPHOCYTES % (MANUAL) 14 % (19-48); MONOCYTES % (MANUAL) 12 % (3.4-9.0); NEUTROPHILS % (MANUAL) 67 % (40-74)
[2019-01-31 09:41] LABS: HYPOCHROMASIA SLIGHT; PLATELET ESTIMATE SLIGHTLY INCREASED; PLATELET MORPHOLOGY COMMENT NORMAL; RBC MORPHOLOGY COMMENT NORMAL
--- NOTE | 2019-01-31 13:28 | NUR ---
SPOKE WITH DAUGHTER GARRETT ON PHONE AND [employer] BEDSIDE [facility] SIGNED CHOICE FILED IN CHART AND FAXED CLINICALS TO [facility].
[2019-01-31] MEDS: HYDROCODONE/APAP 5MG-325MG TAB PO PRN (17:01)
[2019-01-31] MEDS: WARFARIN SOD 2.5 MG TAB PO SCH (17:01)
[2019-02-01] VITALS (7 sets, daily range): BP systolic 108–180; BP diastolic 56–83
[2019-02-01] MEDS: LEVALBUTEROL HCL SOLN NEBU 0.63 MG/3 ML NEB IH SCH ×4 (00:55→19:35)
[2019-02-01] MEDS: IPRATROPIUM BROMIDE 0.02% 2.5 ML NEB NEB SCH ×4 (00:55→19:35)
--- NOTE | 2019-02-01 03:30 | NUR ---
DR Jasmine VALENZUELA IN UNIT ROUNDING ON PT AT THIS TIME.
[2019-02-01 05:30] LABS: INR 1.24; PROTHROMBIN TIME 16.2 seconds (11.9-14.5)
[2019-02-01] MEDS: LEVOTHYROXINE SODIUM 50 MCG TAB PO SCH (05:44)
[2019-02-01] MEDS: METRONIDAZOLE 500 MG TAB PEG SCH ×3 (05:44→23:00)
--- NOTE | 2019-02-01 05:55 | NUR ---
PT RESTING IN BED WITH NO S/S OF DISTRESS.TUBE FEEDING WITH JEVITY RUNNING AT 70 ML/HR.RESIDUAL CHECKED AT THIS TIME NOTED 20 CC AT THIS TIME.BED IN LOWEST/LOCKED POSITION.BED ALARM ON.CALL LIGHT WITHIN EASY REACH.WILL CONTINUE TO MONITOR.
[2019-02-01] MEDS: HYDROCODONE/APAP 5MG-325MG TAB PO PRN ×2 (06:51→15:17)
[2019-02-01] MEDS: CHOLESTYRAMINE 4 GM PACKET PO SCH (07:00)
--- NOTE | 2019-02-01 07:26 | NUR ---
REPORT GIVEN TO ONCOMING NURSE.PT RESTING IN BED WITH NO S/S OF DISTRESS.
--- NOTE | 2019-02-01 10:00 | NUR ---
Spoke to Dr. Saenz about pt having abdominal distention, and residual greater than 500ml. Received orders for KUB and hold tube feeding for now. Pt denies any nausea. After residual removed bowel sounds present.
[2019-02-01] MEDS: FUROSEMIDE 40 MG TAB PO SCH (10:08)
[2019-02-01] MEDS: OLOPATADINE 5 ML BTL OP SCH (10:08)
[2019-02-01] MEDS: MULTIVITAMINS/MINERALS TAB PO SCH (10:08)
[2019-02-01] MEDS: LISINOPRIL 2.5 MG TAB PO SCH (10:08)
[2019-02-01] MEDS: POTASSIUM CHLORIDE 10MEQ EA PO SCH (10:08)
[2019-02-01] MEDS: GABAPENTIN 100 MG CAP PO SCH ×2 (10:08→17:09)
[2019-02-01] MEDS: FAMOTIDINE 20 MG TAB PO SCH (10:08)
[2019-02-01] MEDS: METOPROLOL SUCCINATE 50 MG TAB XL PO SCH (10:09)
[2019-02-01] MEDS: NIFEDIPINE CR 30 MG TAB PO SCH (10:09)
[2019-02-01] MEDS: BALSAM PERU/CASTOR OIL 60 GM OINT...G. TP SCH (10:09)
[2019-02-01] MEDS: MAGNESIUM HYDROXIDE 30 ML UDC PO PRN (10:38)
--- NOTE | 2019-02-01 10:52 | Diagnostic Imaging Report ---
EXAM: ABDOMEN-1VIEW (KUB) DATE: 02/01/2019 10:10 AM INDICATION: CHF, fever, abdominal distention COMPARISON: None FINDINGS: Supine view of the abdomen shows air-filled dilated small bowel loops in the central abdomen. There is a paucity of gas in the colon. Left upper quadrant catheter, apparent gastrostomy. Several surgical clips are seen in the right lower quadrant. IMPRESSION: Distention of bowel loops, apparently small bowel, in the central abdomen with paucity of air in the colon suggesting small bowel obstruction. Signed by: Dr. Alan Edwards M.D. on 02/01/2019 10:48 AM
--- NOTE | 2019-02-01 11:02 | NUR ---
Called and spoke to patients daughter Zoe Tineo and informed her of her mother's Medicare Rights. She verbalized understanding. Signed copy on chart. Copy left at bedside with pt's caregiver Carmen Wynn.
--- NOTE | 2019-02-01 11:32 | NUR ---
GOT ROOM [address] DR VIEIRA CALL REPORT TO [phone]
[2019-02-01] MEDS ORDERED: FUROSEMIDE INJ 10 MG/ML 4 ML VIAL IV NR (13:30)
--- NOTE | 2019-02-01 14:00 | NUR ---
Paged Dr. Saenz twice to report KUB results and waiting for callback. Dr. Thomas here and discussed KUB results. Received new orders from Dr. Thomas to connect pt to low suction. Pt is NPO now she can have sips of full liquids. Received new orders for reglan.
--- NOTE | 2019-02-01 14:43 | Diagnostic Imaging Report ---
EXAM: CHEST SINGLE (PORTABLE) DATE: 02/01/2019 1:19 PM INDICATION: CHF, fever, shortness of breath COMPARISON: Chest x-ray, 01/28/2019 FINDINGS: Lines and tubes: Stable appearance of implanted cardiac device on the right and transvenous lead positions. Mild enlargement of the cardiac silhouette. Pulmonary vascular congestion improved since previous exam. A localized opacity has developed in the lateral lower left hemithorax suggesting loculated fluid. No pneumothorax. Upper abdomen unremarkable. No acute bony abnormality. IMPRESSION: 1. Improvement of pulmonary vascular congestion since last exam. 2. Appearance of localized opacity in the lateral lower left hemithorax, suggesting loculated pleural fluid. Signed by: Dr. Alan Edwards M.D. on 02/01/2019 2:40 PM
[2019-02-01] MEDS ORDERED: POTASSIUM CHLORIDE 20MEQ/100ML 100 ML IV STA (14:49)
[2019-02-01] MEDS ORDERED: SODIUM CHLORIDE 0.9% 500ML 500 ML ONE (15:47)
--- NOTE | 2019-02-01 15:54 | NUR ---
Follow-up Note RD Recommendation(s) for Physician: - If GI tract is not ok to use, rec to initiate standard PN @50mL/hr with additional of 25g lipids daily (1077kcal, 180g dextrose, 60g protein) - Check BMP, Phos, Mag daily; Prealbumin, LFT and TG levels weekly - Continue with TPN per MD - The patient meets criteria for MODERATE protein-calorie malnutrition. Plan of Care: RD following, monitoring for tolerance and adequacy, TPN Nutrition reason for involvement: Follow up RD Assessment 02/01: Pt was getting continuous TF of Jevity 1.2 @70mL/hr via PEG. RN spoke with Dr. Saenz about pt having abdominal distention, and residual greater than 500ml this AM. KUB showed SBO and TF was on hold. Pt denied any nausea or vomiting. Pt was not taking any clear liquid via PO this AM. Continue to hold TF until GI see pt. PN is recommended if GI tract is not ok to use. Discussed RD rec with RAMÓN Rivera. Will continue to monitor and follow. 01/28: Pt seen for follow up. Discussed during am rounds. Pt s/p PEG placement due to esophageal cancer. TF of Jevity 1.2 initiated on 01/27, currently tolerating at 20 ml/hr. Discussed POC with RN regarding TF rec's and goal rate. Pt on BiPAP and sleeping at time of visit, did not disturb. Possible thoracentesis per am rounds. 01/23 - Chart reviewed. 83yo F, who was admitted for SOB. Pt was discharged from [facility] on 01/20. She was well known to me from her previous admission. Visited pt in the room. Pt has had poor appetite since her last hospital stay. RN has been giving pt Ensure but pt didnt want to drink them. Caregiver and daughter on bedside to encourage PO and help with feeding. No complains of nausea or vomiting reported. LBM 01/22. Pt denied any chewing or swallowing difficulty. Stable weight. Poor PO intake was mostly due to her medical condition. Will continue to monitor and follow. Principal Problems/Diagnoses: Community-acquired pneumonia, congestive heart failure, possible aspiration, and large effusion. PMH: Atrial fibrillation, on anticoagulant therapy, dyslipidemia, hypertension, osteoporosis, rheumatoid arthritis, hypothyroidism GI: abdomen firm, distended, flatus present, PEG present Skin: Sacral wound- on staging per assessment Labs: 02/01 BUN 31 H, Ca 7.6 L 01/28: Na 147, 01/26: MG 2.2 Meds: milk of magnesia, K dur, MVi w/ minerals, pepcid, flagyl, synthroid Ht: 64in Wt: 118.5lb; 115.25lb BMI: 17.9kg/m2 IBW: 120lb Malnutrition Evaluation (01/23) The patient does not meet criteria for a specified degree of malnutrition at this time. Will re-evaluate at follow-up as appropriate. Nutrition Prescription (Diet Order): NPO Estimated Nutritional Needs: Calories: 1620 - 1890kcal (30-35kcal/kg/d) Weight used: Current BW Protein: 81 - 108g (1.5-2g/kg/d) Weight used: Current BW Diet Adequacy: Not meeting calorie needs, Not meeting protein needs TF on hold Diet Education Needs Assessment: Diet education not indicated. Nutrition Care Level: mod Nutrition Diagnosis: Inadequate oral intake related to acute medical illness as evidenced by poor appetite and ~25% PO. Goal: Patient will meet 75-100% of estimated needs by follow up Progress: Not progressing Interventions: PN Monitoring/Evaluation: Total energy intake, Total protein intake, Composition, rate, solution, labs, Weight change Signed: Sis Go MS,RD,LD
[2019-02-01] MEDS: WARFARIN SOD 2.5 MG TAB PO SCH (17:09)
[2019-02-01] MEDS: METOCLOPRAMIDE HCL 10 MG/2ML VIAL IV SCH (17:10)
--- NOTE | 2019-02-01 19:00 | NUR ---
Received patient from day nurse, patient is alert and oriented, patient denies any pain at this time, safety and fall precautions maintained at this time, bed in lowest position and locked, needed items beside bed and call akbar placed within patient reach, patient instructed to use to call nurses for any assistance needed, patient is currently stable, will continue to monitor. patient has a peg tube connected to suction and draining.
[2019-02-02] VITALS (8 sets, daily range): BP systolic 102–128; BP diastolic 51–59
[2019-02-02] MEDS: IPRATROPIUM BROMIDE 0.02% 2.5 ML NEB NEB SCH ×4 (01:20→19:23)
[2019-02-02] MEDS: LEVALBUTEROL HCL SOLN NEBU 0.63 MG/3 ML NEB IH SCH ×4 (01:20→19:23)
[2019-02-02] MEDS: METOCLOPRAMIDE HCL 10 MG/2ML VIAL IV SCH ×4 (01:30→17:11)
[2019-02-02 05:21] LABS: BASOPHILS # (AUTO) 0.1 (0.0-0.1); BASOPHILS % 0.4 % (0.0-1.0); EOSINOPHILS % 0.1 % (0.0-6.0); HEMATOCRIT 34.7 % (34.2-44.1); HEMOGLOBIN 10.8 g/dL (12.0-16.0); LYMPHOCYTES # (AUTO) 1.7 (1.0-3.2); LYMPHOCYTES % 6.5 % (18.0-39.1); MEAN CORPUSCULAR HEMOGLOBIN 30.5 pg (28-32); MEAN CORPUSCULAR HGB CONC 31.1 g/dL (31-35); MONOCYTES # (AUTO) 2.9 (0.2-0.8); NEUTROPHILS # (AUTO) 18.7 (2.1-6.9); NEUTROPHILS % 70.8 % (38.7-80.0); PLATELET COUNT 475 x10e3/uL (140-360); RED BLOOD COUNT 3.54 x10e6/uL (3.6-5.1); RED CELL DISTRIBUTION WIDTH 21.8 % (11.7-14.4)
[2019-02-02 05:39] LABS: INR 2.05; PROTHROMBIN TIME 23.8 seconds (11.9-14.5)
[2019-02-02 05:43] LABS: MAGNESIUM 2.8 MG/DL (1.3-2.1)
[2019-02-02 05:56] LABS: ANION GAP 18.9 mmol/L (8-16); CALCIUM 8.2 mg/dL (8.4-10.2); CREATININE, SERUM 1.17 mg/dL (0.57-1.11); POTASSIUM 3.9 mmol/L (3.5-5.1)
--- NOTE | 2019-02-02 06:05 | Diagnostic Imaging Report ---
EXAM: ABDOMEN-1VIEW (KUB), DATE: 02/02/2019 8:00 AM INDICATION: Small bowel obstruction. Fever leukocytosis. COMPARISON: None FINDINGS: LINES/TUBES: Gastrostomy again projected on the left upper quadrant. BOWEL PATTERN: There has been slight interval decrease in the degree of dilatation of multiple small bowel loops, however, not resolved. SOFT TISSUES: No abnormal calcifications. No mass effect. LUNG BASES: Not included BONES: No acute findings. Degenerative changes of the lumbar spine. IMPRESSION: Slight interval decrease in the degree of dilatation of multiple small bowel loops, however, not resolved. Recommend follow-up to resolution. Signed by: Dr. Sherrell Etienne M.D. on 02/02/2019 6:02 AM
[2019-02-02] MEDS: LEVOTHYROXINE SODIUM 50 MCG TAB PO SCH (06:14)
[2019-02-02] MEDS: METRONIDAZOLE 500 MG TAB PEG SCH (06:14)
[2019-02-02] MEDS ORDERED: BISACODYL 10 MG SUPP PR ONE (07:00)
--- NOTE | 2019-02-02 07:00 | NUR ---
RCD PT AT BED PT IS ALERT AND ORIENTED PT RESTING ON BED NO SIGNS OF ANY DISTRESS NOTED IV PATENT PT NPO OJEDA DRAINING BY GRAVITY BED LOW AND LOCKED CALL LIGHT IN REACH
--- NOTE | 2019-02-02 07:41 | NUR ---
patient endorsed to next shift for continuity of care.
[2019-02-02 08:04] LABS: LYMPHOCYTES % (MANUAL) 13 % (19-48); MONOCYTES % (MANUAL) 8 % (3.4-9.0); NEUTROPHILS % (MANUAL) 78 % (40-74); NUCLEATED RED BLOOD CELLS 1
[2019-02-02 08:05] LABS: ANISOCYTOSIS SLIGHT; PLATELET ESTIMATE ADEQUATE; PLATELET MORPHOLOGY COMMENT NORMAL; RBC MORPHOLOGY COMMENT ABNORMAL
[2019-02-02] MEDS: BALSAM PERU/CASTOR OIL 60 GM OINT...G. TP SCH (08:36)
[2019-02-02] MEDS: OLOPATADINE 5 ML BTL OP SCH (08:48)
[2019-02-02] MEDS: GABAPENTIN 100 MG CAP PO SCH ×3 (09:00→17:00)
[2019-02-02] MEDS: METOPROLOL SUCCINATE 50 MG TAB XL PO SCH ×2 (09:00→11:25)
[2019-02-02] MEDS ORDERED: FUROSEMIDE INJ 10 MG/ML 4 ML VIAL IV SCH (09:00)
[2019-02-02] MEDS: POTASSIUM CHLORIDE 10MEQ EA PO SCH (09:00)
[2019-02-02] MEDS: NIFEDIPINE CR 30 MG TAB PO SCH ×2 (09:00→11:25)
[2019-02-02] MEDS: MULTIVITAMINS/MINERALS TAB PO SCH ×2 (09:00→11:25)
[2019-02-02] MEDS: FAMOTIDINE 20 MG TAB PO SCH ×2 (09:00→11:25)
--- NOTE | 2019-02-02 09:30 | NUR ---
AFTER SUPPOSITORY PT HAD SMALL BOWEL MOVEMENT
[2019-02-02] MEDS ORDERED: AZTREONAM 1 GM/NS 50 ML 50 ML IV SCH (11:00)
[2019-02-02] MEDS ORDERED: DIATRIZOATE MEGL/DIATRIZOA SOD 30 ML BTL PO ONE (11:19)
[2019-02-02] MEDS: VANCOMYCIN 500MG/NS 0.9% 100ML 100 ML IV SCH (11:30)
[2019-02-02] MEDS: D5.45%NS/KCL 20MEQ 1,000 ML IV SCH (12:30)
--- NOTE | 2019-02-02 13:35 | NUR ---
PT WENT FOR PROCEDURE IN SAFE CONDITION
--- NOTE | 2019-02-02 15:08 | Diagnostic Imaging Report ---
EXAM: CT Abdomen and Pelvis WITHOUT contrast INDICATION: ^SBO ^[id number] ^[id number] COMPARISON: CT dated 01/21/2019 TECHNIQUE: Abdomen and pelvis were scanned utilizing a multidetector helical scanner from the lung base to the pubic symphysis without administration of IV contrast. Absence of intravenous contrast decreases sensitivity for detection of focal lesions and vascular pathology. Coronal and sagittal reformations were obtained. Routine protocol was performed. IV CONTRAST: None ORAL CONTRAST: Administered. COMPLICATIONS: None RADIATION DOSE: Total DLP: 168.75 mGy*cm Estimated effective dose: (DLP x 0.015 x size factor) mSv CTDIvol has been reviewed. It is below the limits set by the Radiation Protocol Committee (RPC). FINDINGS: LINES and TUBES: Distal leads of cardiac device are visualized. Reynolds catheter. Percutaneous gastrostomy tube in place. LOWER THORAX: Small bilateral pleural effusions, left greater right, slightly decreased from prior exam. Compressive atelectasis of the most of the left lower lobe. HEPATOBILIARY: Unenhanced liver is unremarkable. No biliary ductal dilation. GALLBLADDER: No radio-opaque stones or sludge. No wall thickening. SPLEEN: No splenomegaly. PANCREAS: No focal masses or ductal dilatation. ADRENALS: No adrenal nodules KIDNEYS/URETERS: No hydronephrosis. Again seen left renal midpole hypodensity, likely a cyst. No stones. GI TRACT: There are fluid-filled dilated small bowel loops throughout the abdomen with some collapsed distal small bowel loops in lower abdomen. Appendix is not visualized with certainty. PELVIC ORGANS/BLADDER: Bladder is collapsed by a Reynolds catheter in place. Hysterectomy. LYMPH NODES: No lymphadenopathy. VESSELS: Limited evaluation without intravenous contrast. There is moderate atherosclerotic disease in the aorta and major arterial branches. PERITONEUM / RETROPERITONEUM: No free air or fluid. BONES: Degenerative changes of lumbar spine, most notable at L1-L2. Grade 2 anterolisthesis of L5 in relation to S1. There is bilateral L5 pars defects. SOFT TISSUES: Partially seen bilateral breast implants. IMPRESSION: Limited study without intravenous contrast. Small bowel obstruction with transition point in lower abdomen. Small bilateral pleural effusions, left greater right, slightly decreased from prior exam. Compressive atelectasis of the most of the left lower lobe. Signed by: Dr. Mendez Bean MD on 02/02/2019 3:05 PM
--- NOTE | 2019-02-02 15:15 | NUR ---
PAGED DR PARIS TO NOTIFY THE CT ABDOMEN REPORT AND LEFT THE VOICE MESSAGE
--- NOTE | 2019-02-02 16:30 | NUR ---
AGAIN PAGED AND TALKED DR PARIS HE SAID LISTEN YOUR MESSAGE HE IS AWARE ABOUT SMALL BOWEL OBSTRUCTION NO NEW ORDERS
--- NOTE | 2019-02-02 18:39 | NUR ---
PT RESTING ON BED SUCTION WORKING GOOD PT NPO EXCEPT MEDICATIONS BED SIDE REPORT GIVEN TO ONCOMING NURSE
--- NOTE | 2019-02-02 19:12 | NUR ---
WALKING ROUNDS PERFORMED, RECEIVED PT LAYING SEMI FOWLERS IN BED, RESTING, 18 RR/MIN. NO S/SX OF DISTRESS NOTED. PEG CONNECTED TO LOW INT. WALL SUCTION. LEFT PT LAYING SEMI FOWLERS IN BED, BED IN LOW LOCKED POSITION, SIDE RAILS UPX2, CALL LIGHT AND PHONE WITHIN REACH.
[2019-02-02] MEDS: AZTREONAM 1 GM/NS 50 ML 50 ML IV SCH (20:18)
--- NOTE | 2019-02-02 20:18 | NUR ---
BILATERAL LOWER EXTREMITIES HEEL PROTECTORS IN PLACE WITH ALLEVYN TO BILATERAL HEELS. BILATERAL LOWER EXTREMITIES ELEVATED ON PILLOWS.
[2019-02-03] VITALS (7 sets, daily range): BP systolic 105–119; BP diastolic 50–90
[2019-02-03] MEDS: LEVALBUTEROL HCL SOLN NEBU 0.63 MG/3 ML NEB IH SCH ×4 (00:02→19:30)
[2019-02-03] MEDS: IPRATROPIUM BROMIDE 0.02% 2.5 ML NEB NEB SCH ×4 (00:02→19:30)
[2019-02-03] MEDS: VANCOMYCIN 500MG/NS 0.9% 100ML 100 ML IV SCH ×3 (00:09→22:46)
[2019-02-03] MEDS: METOCLOPRAMIDE HCL 10 MG/2ML VIAL IV SCH ×5 (00:14→23:36)
--- NOTE | 2019-02-03 00:57 | NUR ---
S/P PT RECEIVING BED BATH, CHANGED PT ALLEVYN TO SACRUM.
--- NOTE | 2019-02-03 01:47 | NUR ---
ROUNDS PERFORMED WITH MD Sumit VALENZUELA. AT BEDSIDE WAS INSTRUCTED BY MD TO D/C SUCTION TO PEG TUBE AND CHECK RESIDUAL. 0 ML RESIDUAL NOTED.
[2019-02-03] MEDS ORDERED: BISACODYL 10 MG SUPP PR ONE ×2 (02:00)
--- NOTE | 2019-02-03 02:09 | NUR ---
PT HAD MEDIUM BM PRIOR TO SUPPOSITORY ADMINISTRATION. NOTIFIED MD Sumit VALENZUELA. ORDERED TO CANCEL SUPPOSITORIES AND ADMINISTER M.O.M THROUGH PEG TUBE AND CONNECT PEG TUBE TO SUCTION AFTER 1 HOUR.
[2019-02-03] MEDS ORDERED: MAGNESIUM HYDROXIDE 30 ML UDC PEG ONE (02:15)
[2019-02-03] MEDS: D5.45%NS/KCL 20MEQ 1,000 ML IV SCH ×2 (03:05→16:10)
[2019-02-03] MEDS: AZTREONAM 1 GM/NS 50 ML 50 ML IV SCH ×3 (03:20→20:37)
--- NOTE | 2019-02-03 04:05 | NUR ---
CONNECTED PEG TUBE TO SUCTION AFTER CHECKING RESIDUAL. 20ML OF GREEN RESIDUAL ASPIRATED.
[2019-02-03 04:46] LABS: BASOPHILS # (AUTO) 0.1 (0.0-0.1); BASOPHILS % 0.3 % (0.0-1.0); EOSINOPHILS # (AUTO) 0.1 (0.0-0.4); EOSINOPHILS % 0.5 % (0.0-6.0); HEMATOCRIT 32.1 % (34.2-44.1); LYMPHOCYTES # (AUTO) 1.5 (1.0-3.2); LYMPHOCYTES % 6.7 % (18.0-39.1); MEAN CORPUSCULAR HGB CONC 31.2 g/dL (31-35); MEAN CORPUSCULAR VOLUME 99.4 fL (81-99); MONOCYTES # (AUTO) 2.6 (0.2-0.8); MONOCYTES % 11.4 % (4.4-11.3); NEUTROPHILS # (AUTO) 16.2 (2.1-6.9); NEUTROPHILS % 71.8 % (38.7-80.0); PLATELET COUNT 424 x10e3/uL (140-360); RED BLOOD COUNT 3.23 x10e6/uL (3.6-5.1); RED CELL DISTRIBUTION WIDTH 21.7 % (11.7-14.4)
[2019-02-03 04:55] LABS: INR 2.44; PROTHROMBIN TIME 27.2 seconds (11.9-14.5)
[2019-02-03 05:07] LABS: ANION GAP 14.5 mmol/L (8-16); CALCIUM 7.8 mg/dL (8.4-10.2); CREATININE, SERUM 1.02 mg/dL (0.57-1.11); POTASSIUM 3.5 mmol/L (3.5-5.1)
[2019-02-03] MEDS: LEVOTHYROXINE SODIUM 50 MCG TAB PO SCH (06:17)
--- NOTE | 2019-02-03 06:18 | NUR ---
SUCTION NOTED TO BE DISCONNECTED FROM PEG TUBE. GASTRIC DRAINAGE NOTED TO LINENS. LINENS CHANGED AT THIS TIME. PT ROTATED TO (L) SIDE.
[2019-02-03 06:49] LABS: BAND NEUTROPHILS % (MANUAL) 1 %; LYMPHOCYTES % (MANUAL) 5 % (19-48); METAMYELOCYTES % (MANUAL) 1 % (0-0); MONOCYTES % (MANUAL) 9 % (3.4-9.0); MYELOCYTES % (MANUAL) 2 % (0-0); NEUTROPHILS % (MANUAL) 82 % (40-74); NUCLEATED RED BLOOD CELLS 1; PLATELET ESTIMATE ADEQUATE; PLATELET MORPHOLOGY COMMENT NORMAL; RBC MORPHOLOGY COMMENT NORMAL
--- NOTE | 2019-02-03 07:01 | Diagnostic Imaging Report ---
EXAM: ABDOMEN-1VIEW (KUB), DATE: 02/03/2019 6:00 AM INDICATION: CHF. Fever leukocytosis. COMPARISON: 02/02/2019. FINDINGS: LINES/TUBES: Gastrostomy again projected on the left upper quadrant. BOWEL PATTERN: There has been further interval decrease in the degree of dilatation of multiple small bowel loops, however, not resolved. SOFT TISSUES: No abnormal calcifications. No mass effect. LUNG BASES: Bibasilar atelectasis. BONES: No acute findings. Degenerative changes of the lumbar spine. IMPRESSION: Further interval decrease in the degree of dilatation of multiple small bowel loops. Signed by: Dr. Sherrell Etinene M.D. on 02/03/2019 6:58 AM
--- NOTE | 2019-02-03 08:31 | NUR ---
CALLED DR. GERALDO PARIS FOR ODER TO SEE IF PHYSICIAN WANTS A VANCOMYCIN TROUGH PRIOR TO 3RD DOSE., LEFT MESSAGE AT [phone].
[2019-02-03] MEDS: FAMOTIDINE 20 MG TAB PO SCH (09:38)
[2019-02-03] MEDS: NIFEDIPINE CR 30 MG TAB PO SCH (09:38)
[2019-02-03] MEDS: GABAPENTIN 100 MG CAP PO SCH ×2 (09:38→17:35)
[2019-02-03] MEDS: MULTIVITAMINS/MINERALS TAB PO SCH (09:38)
[2019-02-03] MEDS: METOPROLOL SUCCINATE 50 MG TAB XL PO SCH (09:39)
[2019-02-03] MEDS: BALSAM PERU/CASTOR OIL 60 GM OINT...G. TP SCH (09:39)
[2019-02-03] MEDS: OLOPATADINE 5 ML BTL OP SCH (09:43)
[2019-02-03] MEDS ORDERED: CYANOCOBALAMIN INJ 1,000 MCG/ML VIAL IM ONE (10:00)
[2019-02-03] MEDS ORDERED: POTASSIUM CHLORIDE 20MEQ/100ML 300 ML IV ONE (11:30)
[2019-02-03] MEDS ORDERED: SODIUM CHLORIDE 0.9% 250ML 250 ML ONE (14:35)
--- NOTE | 2019-02-03 19:06 | NUR ---
WALKING ROUNDS PERFORMED, RECEIVED PT LAYING SEMI FOWLERS IN BED, AAOX3. RR EVEN AND NON-LABORED, O2 BY NC AT 3L. NO S/SX OF DISTRESS NOTED. PEG CONNECTED TO LOW INT. WALL SUCTION. LEFT PT LAYING SEMI FOWLERS IN BED, BED IN LOW LOCKED POSITION, SIDE RAILS UPX2, CALL LIGHT AND PHONE WITHIN REACH.
[2019-02-04] VITALS (7 sets, daily range): BP systolic 107–136; BP diastolic 52–63
[2019-02-04] MEDS: LEVALBUTEROL HCL SOLN NEBU 0.63 MG/3 ML NEB IH SCH ×4 (00:25→20:00)
[2019-02-04] MEDS: IPRATROPIUM BROMIDE 0.02% 2.5 ML NEB NEB SCH ×4 (00:25→20:00)
[2019-02-04] MEDS ORDERED: MAGNESIUM HYDROXIDE 30 ML UDC PO ONE (00:45)
--- NOTE | 2019-02-04 01:23 | NUR ---
SUCTION CANISTER CHANGED. SUCTION CLAMPED AT THIS TIME FOR MEDICATION PASS.
[2019-02-04] MEDS: D5.45%NS/KCL 20MEQ 1,000 ML IV SCH ×2 (03:59→17:01)
[2019-02-04] MEDS: AZTREONAM 1 GM/NS 50 ML 50 ML IV SCH ×2 (03:59→13:25)
--- NOTE | 2019-02-04 04:03 | NUR ---
RECONNECTED PEG TO SUCTION AFTER MOM ADMINISTRATION.
[2019-02-04 05:04] LABS: BASOPHILS # (AUTO) 0.1 (0.0-0.1); BASOPHILS % 0.5 % (0.0-1.0); EOSINOPHILS # (AUTO) 0.1 (0.0-0.4); EOSINOPHILS % 0.5 % (0.0-6.0); HEMATOCRIT 32.7 % (34.2-44.1); HEMOGLOBIN 10.2 g/dL (12.0-16.0); LYMPHOCYTES # (AUTO) 1.4 (1.0-3.2); LYMPHOCYTES % 6.3 % (18.0-39.1); MEAN CORPUSCULAR HEMOGLOBIN 31.3 pg (28-32); MEAN CORPUSCULAR HGB CONC 31.2 g/dL (31-35); MEAN CORPUSCULAR VOLUME 100.3 fL (81-99); MONOCYTES # (AUTO) 2.3 (0.2-0.8); MONOCYTES % 10.2 % (4.4-11.3); NEUTROPHILS # (AUTO) 16.6 (2.1-6.9); NEUTROPHILS % 72.3 % (38.7-80.0); PLATELET COUNT 464 x10e3/uL (140-360); RED BLOOD COUNT 3.26 x10e6/uL (3.6-5.1); RED CELL DISTRIBUTION WIDTH 21.9 % (11.7-14.4)
[2019-02-04 05:12] LABS: INR 2.66; PROTHROMBIN TIME 29.1 seconds (11.9-14.5)
[2019-02-04 05:18] LABS: CALCIUM 7.9 mg/dL (8.4-10.2); CREATININE, SERUM 1.11 mg/dL (0.57-1.11)
[2019-02-04] MEDS: LEVOTHYROXINE SODIUM 50 MCG TAB PO SCH (05:31)
[2019-02-04] MEDS: METOCLOPRAMIDE HCL 10 MG/2ML VIAL IV SCH ×3 (05:38→17:01)
--- NOTE | 2019-02-04 06:34 | Diagnostic Imaging Report ---
EXAM: ABDOMEN-1VIEW (KUB), DATE: 02/04/2019 6:00 AM INDICATION: Small bowel obstruction follow-up. COMPARISON: 02/03/2019. FINDINGS: LINES/TUBES: Gastrostomy again observed, somewhat more lateral than on the prior examination, possibly due to projection; if concern consider further evaluation with PEG tube check with administration of oral contrast. BOWEL PATTERN: There has interval near resolution of dilated small bowel loops. SOFT TISSUES: No abnormal calcifications. Small metallic density projected on the pelvis. LUNG BASES: Not included. BONES: Degenerative changes of the lumbar spine. IMPRESSION: interval near resolution of small bowel dilatation. Signed by: Dr. Sherrell Etienne M.D. on 02/04/2019 6:30 AM
[2019-02-04] MEDS: BALSAM PERU/CASTOR OIL 60 GM OINT...G. TP SCH (09:59)
[2019-02-04] MEDS: MULTIVITAMINS/MINERALS TAB PO SCH (09:59)
[2019-02-04] MEDS: OLOPATADINE 5 ML BTL OP SCH (09:59)
[2019-02-04] MEDS: FAMOTIDINE 20 MG TAB PO SCH (09:59)
[2019-02-04] MEDS: METOPROLOL SUCCINATE 50 MG TAB XL PO SCH (09:59)
--- NOTE | 2019-02-04 10:51 | NUR ---
EDUCATED ABOUT IMM, SIGNED, FILED IN CHART, WITH COPY LEFT WITH FAMILY AT BEDSIDE.
--- NOTE | 2019-02-04 10:51 | NUR ---
SPOKE WITH YADIRA OLMEDO AT BEDSIDE WHOM STATES THE DAUGHTER IS GOING TO CALL ME TO CHANGE SNF LOCATION. CHECKED WITH NURSE SINCE BED ASSIGNMENT WAS GIVEN MONDAY. PT HAD A SMALL BOWEL OBSTRUCTION AND WAS UNABLE TO MOVE AND PROBABLY WILL BE HERE ANOTHER COUPLE OF DAYS, WILL HAVE TO START APPROVAL OVER. WILL SPEAK WITH DAUGHTER TO DETERMINE LOCATION AND MOVE FORWARD WHEN GET ALL INFORMATION.
[2019-02-04] MEDS: VANCOMYCIN 500MG/NS 0.9% 100ML 100 ML IV SCH (11:21)
--- NOTE | 2019-02-04 18:21 | NUR ---
Hematuria noticed in Reynolds tubing. Notified Dr. Thomas. Orders to flush Reynolds PRN.
--- NOTE | 2019-02-04 19:09 | Diagnostic Imaging Report ---
EXAMINATION: CHEST SINGLE (PORTABLE) INDICATION: 83-year-old with shortness of breath COMPARISON: Abdominal radiograph dated 02/04/2019, CT abdomen/pelvis dated 02/02/2019, chest radiograph dated 02/01/2019 FINDINGS: AP view TUBES and LINES: None. LUNGS/PLEURA: Worsening bilateral airspace opacities. Probable trace effusions. Prominent pulmonary vasculature. HEART AND MEDIASTINUM: Prominent cardiac silhouette. Right-sided dual-lead pacer. BONES AND SOFT TISSUES: No acute osseous lesion. Soft tissues are unremarkable. UPPER ABDOMEN: No free air under the diaphragm. IMPRESSION: Worsening airspace opacities may represent pulmonary edema although a developing infectious/inflammatory process cannot be excluded. Follow-up is recommended. Signed by: Malik Dorado MD on 02/04/2019 7:06 PM
[2019-02-05] VITALS (7 sets, daily range): BP systolic 123–156; BP diastolic 57–74
[2019-02-05] MEDS: IPRATROPIUM BROMIDE 0.02% 2.5 ML NEB NEB SCH ×4 (00:30→19:35)
[2019-02-05] MEDS: LEVALBUTEROL HCL SOLN NEBU 0.63 MG/3 ML NEB IH SCH ×4 (00:30→19:35)
[2019-02-05] MEDS: METOCLOPRAMIDE HCL 10 MG/2ML VIAL IV SCH ×4 (00:54→17:19)
[2019-02-05] MEDS: HYDROCODONE/APAP 5MG-325MG TAB PO PRN ×2 (01:03→13:04)
[2019-02-05] MEDS: LEVOTHYROXINE SODIUM 50 MCG TAB PO SCH (05:13)
[2019-02-05 05:29] LABS: BASOPHILS # (AUTO) 0.2 (0.0-0.1); BASOPHILS % 0.5 % (0.0-1.0); EOSINOPHILS % 0.1 % (0.0-6.0); HEMOGLOBIN 10.7 g/dL (12.0-16.0); LYMPHOCYTES # (AUTO) 1.1 (1.0-3.2); MEAN CORPUSCULAR HEMOGLOBIN 31.5 pg (28-32); MEAN CORPUSCULAR HGB CONC 30.6 g/dL (31-35); MEAN CORPUSCULAR VOLUME 102.9 fL (81-99); MONOCYTES # (AUTO) 3.1 (0.2-0.8); MONOCYTES % 8.3 % (4.4-11.3); NEUTROPHILS # (AUTO) 28.5 (2.1-6.9); NEUTROPHILS % 76.1 % (38.7-80.0); PLATELET COUNT 575 x10e3/uL (140-360); RED CELL DISTRIBUTION WIDTH 22.5 % (11.7-14.4)
[2019-02-05 05:52] LABS: CALCIUM 8.6 mg/dL (8.4-10.2); CREATININE, SERUM 1.06 mg/dL (0.57-1.11)
[2019-02-05 06:10] LABS: INR 1.73; PROTHROMBIN TIME 20.9 seconds (11.9-14.5)
[2019-02-05] MEDS: D5.45%NS/KCL 20MEQ 1,000 ML IV SCH (06:21)
--- NOTE | 2019-02-05 06:29 | Diagnostic Imaging Report ---
Exam: Abdominal film Clinical History: CHF, fever, leukocytosis, follow-up small bowel obstruction Comparison: KUB 02/04/2019 DISCUSSION: See impression. IMPRESSION: 1. No dilated, air-filled loops of bowel are identified. Stable gastrostomy tube. 2. 3 mm radiopaque density projects over the left renal shadow. No other radiopaque densities project over the genitourinary system. 3. Degenerative changes in the lower lumbosacral spine and bilateral sacroiliac joints. The staff physician below has personally reviewed this exam on the date of dictation. Signed by: Dr. John Barber M.D. on 02/05/2019 6:26 AM
[2019-02-05 07:06] LABS: BAND NEUTROPHILS % (MANUAL) 1 %; EOSINOPHILS % (MANUAL) 1 % (0-7); LYMPHOCYTES % (MANUAL) 7 % (19-48); METAMYELOCYTES % (MANUAL) 3 % (0-0); MONOCYTES % (MANUAL) 3 % (3.4-9.0); MYELOCYTES % (MANUAL) 8 % (0-0); NEUTROPHILS % (MANUAL) 76 % (40-74); PROMYELOCYTES % (MANUAL) 1 % (0-0)
[2019-02-05 07:09] LABS: PLATELET ESTIMATE SLIGHTLY INCREASED; PLATELET MORPHOLOGY COMMENT NORMAL; RBC MORPHOLOGY COMMENT ABNORMAL
[2019-02-05 07:10] LABS: POIKILOCYTOSIS SLIGHT
[2019-02-05 07:13] LABS: ANISOCYTOSIS MARKED; POLYCHROMASIA FEW
[2019-02-05 07:15] LABS: NUCLEATED RED BLOOD CELLS 1
[2019-02-05] MEDS: OLOPATADINE 5 ML BTL OP SCH (09:23)
[2019-02-05] MEDS: MULTIVITAMINS/MINERALS TAB PO SCH (09:23)
[2019-02-05] MEDS: FAMOTIDINE 20 MG TAB PO SCH (09:23)
[2019-02-05] MEDS: METOPROLOL SUCCINATE 50 MG TAB XL PO SCH (09:24)
[2019-02-05] MEDS: BALSAM PERU/CASTOR OIL 60 GM OINT...G. TP SCH (09:24)
[2019-02-05] MEDS ORDERED: FUROSEMIDE INJ 10 MG/ML 2 ML VIAL IV NR (12:00)
[2019-02-05] MEDS ORDERED: FUROSEMIDE INJ 10 MG/ML 4 ML VIAL ONE (12:13)
[2019-02-05] MEDS ORDERED: FUROSEMIDE INJ 10 MG/ML 2 ML VIAL IV ONE (12:25)
--- NOTE | 2019-02-05 16:10 | NUR ---
SPOKE WITH DAUGHTER THAT IS POA AND SHE STATES SHE WOULD LIKE [facility] TO HEART HOSP[facility] AND IF POSSIBLE GO TO [facility]. FILED IN CHART
--- NOTE | 2019-02-05 16:16 | NUR ---
Follow-up Note RD Recommendation(s) for Physician: - Change TF to non fiber containing formula Osmolite 1.2 and advance to goal rate of 60 ml/hr (to provide 1728 kcal and 80 gm protein). - Water flushes and fluid management per MD. - Pt meets criteria for moderate protein calorie malnutrition. Plan of Care: RD following, monitoring for tolerance and adequacy, TF rec's Nutrition reason for involvement: Follow up RD Assessment 02/05: Pt discussed during am rounds, TF resumed after resolution of SBO. TF rec's to change to Osmolite 1.2 with increased rate discussed with RAMÓN Gannon during rounds. Pt on Jevity 1.2 at 20 ml/hr at time of visit, pt sleeping and family at bedside. Recommend fiber free formula due to recent SBO. Pt on IVF of D5-1/2NS with KCl at 75 ml/hr currently. Will monitor and continue to follow. 02/01: Pt was getting continuous TF of Jevity 1.2 @70mL/hr via PEG. RN spoke with Dr. Saenz about pt having abdominal distention, and residual greater than 500ml this AM. KUB showed SBO and TF was on hold. Pt denied any nausea or vomiting. Pt was not taking any clear liquid via PO this AM. Continue to hold TF until GI see pt. PN is recommended if GI tract is not ok to use. Discussed RD rec with RAMÓN Rivera. Will continue to monitor and follow. 01/28: Pt seen for follow up. Discussed during am rounds. Pt s/p PEG placement due to esophageal cancer. TF of Jevity 1.2 initiated on 01/27, currently tolerating at 20 ml/hr. Discussed POC with RN regarding TF rec's and goal rate. Pt on BiPAP and sleeping at time of visit, did not disturb. Possible thoracentesis per am rounds. 01/23 - Chart reviewed. 83yo F, who was admitted for SOB. Pt was discharged from [facility] on 01/20. She was well known to me from her previous admission. Visited pt in the room. Pt has had poor appetite since her last hospital stay. RN has been giving pt Ensure but pt didnt want to drink them. Caregiver and daughter on bedside to encourage PO and help with feeding. No complains of nausea or vomiting reported. LBM 01/22. Pt denied any chewing or swallowing difficulty. Stable weight. Poor PO intake was mostly due to her medical condition. Will continue to monitor and follow. Principal Problems/Diagnoses: Community-acquired pneumonia, congestive heart failure, possible aspiration, and large effusion. PMH: Atrial fibrillation, on anticoagulant therapy, dyslipidemia, hypertension, osteoporosis, rheumatoid arthritis, hypothyroidism GI: LBM 02/05, +PEG Skin: Sacral wound- suspected DTI Labs: 02/05: Na 147, K 4, BUN 44, Cr 1.06, Gluc 155 Meds: milk of magnesia, IV KCl, MVi w/ minerals, pepcid, reglan, synthroid Ht: 64in Wt: 118.5lb; 115.25lb BMI: 17.9kg/m2 IBW: 120lb Malnutrition Evaluation (02/05) Patient meets criteria for moderate protein calorie malnutrition. Moderate intake [employer] and currently- poor intake [employer], TF not meeting needs since admit Moderate for physical assessment- eyes dark circles, clavicle visible Nutrition Prescription (Diet Order): Jevity 1.2 at 20 ml/hr Estimated Nutritional Needs: Calories: 1620 - 1890kcal (30-35kcal/kg/d) Weight used: Current BW Protein: 81 - 108g (1.5-2g/kg/d) Weight used: Current BW Diet Adequacy: Not meeting calorie needs, Not meeting protein needs TF at 20 ml/hr Diet Education Needs Assessment: Diet education not indicated. Nutrition Care Level: mod Nutrition Diagnosis: Inadequate oral intake related to acute medical illness as evidenced by poor appetite and ~25% PO. Goal: Patient will meet 75-100% of estimated needs by follow up Progress: Progressing Interventions: Modify formula, composition, and rate of EN Monitoring/Evaluation: Total energy intake, Total protein intake, Composition, rate, solution, labs, Weight change Signed: Esperanza Dexter RD, LD, CNSC
[2019-02-05 18:44] LABS: AMYLASE 83 U/L (25-125); LIPASE 21 U/L (8-78)
--- NOTE | 2019-02-05 18:55 | NUR ---
Spoke to Dr. Waller at this time. He states that he will speak with Dr. Thomas in the morning, 02/06/19. Made him aware that patient's POA, daughter Zoe, inititated hospice care today.
[2019-02-05] MEDS: METRONIDAZOLE 500MG/NS 100ML 100 ML IV SCH (19:04)
--- NOTE | 2019-02-05 21:14 | Progress Note ---
DATE: 02/05/2019 SUBJECTIVE: The patient remains weak, no new complaints. Family at the bedside. Laboratory data reviewed. Her white count seems to be worse today, it is 37.4; hemoglobin of 10, hematocrit is 35. Sodium 147, potassium 4, creatinine of 1.06. OBJECTIVE: GENERAL: She is alert with short of breath. HEENT: She is not icteric, normocephalic. CHEST: Few crackles bilaterally. COR: S1, S2. No S3, S4, or murmur. ABDOMEN: Soft. ASSESSMENT AND PLAN: Leukocytosis is getting worse, concerned about colitis. The patient received several courses of antibiotics. We will obtain CT abdomen and pelvis. We will put her on Flagyl 500 IV q.6. Check amylase. Check lipase. Check her blood cultures. We will follow. MD ÁLVARO Lobato/ENRRIQUE /[id number]
[2019-02-06] VITALS (7 sets, daily range): BP systolic 133–177; BP diastolic 70–95
[2019-02-06] MEDS: METOCLOPRAMIDE HCL 10 MG/2ML VIAL IV SCH ×5 (00:06→23:27)
[2019-02-06] MEDS: METRONIDAZOLE 500MG/NS 100ML 100 ML IV SCH ×5 (00:06→23:27)
[2019-02-06] MEDS: D5.45%NS/KCL 20MEQ 1,000 ML IV SCH ×3 (00:08→23:27)
--- NOTE | 2019-02-06 01:29 | Consultation ---
DATE OF CONSULTATION: 02/04/2019 REASON FOR CONSULTATION: Leukocytosis. HISTORY OF PRESENT ILLNESS: The patient was seen and examined on February 04. Chart reviewed. Met with the caregiver. The patient who is an 83-year-old, who was originally admitted on January 21 with shortness of breath. The patient has been in the hospital since then. She was recently in the hospital 2 weeks prior to this admission with similar complaints. The patient has a history of esophageal cancer, had radiation and chemo in the past, comes in with shortness of breath. The patient also has history of rheumatoid arthritis, atrial fibrillation, ruptured left breast prosthesis, hypertension, osteoporosis, neuropathy, hypothyroidism, overactive bladder, hyperlipidemia, coronary artery disease, arrhythmia status post pacemaker, chronic back pain, leukopenia, UTI before, hysterectomy, permanent pacemaker, breast implant ruptured. The patient comes in to the hospital with acute on chronic congestive heart failure with anemia and dysphagia. She was admitted and she was seen by Cardiology. The patient was also seen by GI and she was seen by Pulmonary. She was diagnosed with community-acquired pneumonia when she first came here. She was seen by Gastroenterology for distal esophagitis. She had a percutaneous endoscopic gastrostomy tube placement. The patient has been hospitalized since then. It was noted that her white count was getting progressively worse, so Infectious Disease was asked to see the patient. The patient was very weak, has no complaints. According to family, she has been stable. LABORATORY DATA: Her laboratory reviewed since admission. Her chart reviewed since admission. Her white count was 16.87, went up to 25, went up to 22.98; hemoglobin of 10.2; hematocrit of 32. Her sodium 144, potassium 4.0, creatinine of 1.1. The patient had a blood culture, which has been negative. MEDICATIONS: She is on Reglan, Xopenex, [place], Toprol, multivitamin. She is on levothyroxine. She has been on Lasix. The patient has been on vancomycin and Azactam, which was started on the . PHYSICAL EXAMINATION: GENERAL: She is alert, does not seem to be in acute distress. VITAL SIGNS: Stable. Afebrile. HEENT: She is not icteric. NECK: Supple. CHEST: Few crackles at the bases. COR: S1, S2. No S3, S4, murmur. ABDOMEN: Soft. Bowel sounds present. No tenderness. EXTREMITIES: No edema. SKIN: There is no rash. IMPRESSION AND PLAN: Leukocytosis, getting progressively worse. The patient who has underlying history of breast cancer, history of esophageal cancer, rheumatoid arthritis. Her white count seems to be getting worse on the antibiotics. She has been on Zosyn. She has been on vancomycin, azithromycin, ceftriaxone. Concerned if she is having early colitis versus drug reaction. Recommend discontinue antibiotic, observe her closely, recheck CBC, check Chem panel, amylase, lipase. Discussed with the family. We will follow with you. Further recommendations to follow. MD ÁLVARO Lobato/ENRRIQUE /[id number]
[2019-02-06] MEDS: LEVALBUTEROL HCL SOLN NEBU 0.63 MG/3 ML NEB IH SCH ×4 (01:30→19:34)
[2019-02-06] MEDS: IPRATROPIUM BROMIDE 0.02% 2.5 ML NEB NEB SCH ×4 (01:30→19:34)
[2019-02-06] MEDS: LEVOTHYROXINE SODIUM 50 MCG TAB PO SCH (05:22)
--- NOTE | 2019-02-06 05:31 | Consultation ---
DATE OF CONSULTATION: 02/04/2019 Addendum To Consultation Note HISTORY: The patient is seen and examined again, met with the caregiver. The patient, who is alert and oriented, has no complaints at the present time. REVIEW OF SYSTEMS: Except weakness, she denies any 14-point review of system reviewed with the patient. PHYSICAL EXAMINATION: GENERAL: She is alert, oriented, and does not seem to be in acute distress. VITAL SIGNS: Stable. Currently, afebrile. HEENT: Normocephalic. NECK: Supple. CHEST: Clear. HEART: S1 and S2. ABDOMEN: Soft. IMPRESSION: 1. Leukocytosis, is getting progressively worse, clinically seems to be stable. I am going to stop both antibiotics; the vancomycin and Azactam. I do not think there is pneumonia or an infection at the present time. Recheck CBC. Recheck Chem panel. Her examination does not indicate small bowel obstruction at the present time. Her abdomen is soft. 2. Debility. 3. Anemia. 4. History of esophageal cancer, status post PEG tube placement, status post atrial fibrillation. 5. History of atrial fibrillation. 6. History of congestive heart failure. 7. History of coronary artery disease. We will follow with you. Prognosis is guarded because overall, she looked sick. Further recommendation pending clinical progress. We will assess daily. MD ÁLVARO Lobato/ENRRIQUE /[id number]
--- NOTE | 2019-02-06 07:16 | Consultation ---
DATE OF CONSULTATION: 02/04/2019 HISTORY OF PRESENT ILLNESS: This patient who has been here for 14 days. She came 01/21/2019. I am asked to see her today. The patient is an 83-year-old female, who comes in with shortness of breath on January 21. The patient does not provide meaningful information. She was here 2 weeks ago for shortness of breath. She has a history of esophageal cancer and underwent chemo and radiation in the past. The patient has history of rheumatoid arthritis, atrial fibrillation, throat cancer, ruptured left breast prosthesis before, hypertension, osteoporosis, neuropathy, hypothyroidism, overactive bladder, hyperlipidemia, coronary artery disease status post pacemaker, chronic back pain, leukopenia, UTI before, anemia. PAST SURGICAL HISTORY: Hysterectomy, permanent pacemaker, breast implant surgery ALLERGIES: NKA. SOCIAL HISTORY: No smoking, drug abuse, or alcohol abuse. FAMILY HISTORY: Noncontributory. The patient was admitted. She has been seen by Dr. Teodoro Saenz, Dr. Rutledge, Dr. Freeman. The patient has a PEG tube placement. Her blood cultures have been negative. Her white count has been getting progressively worse, it was 13.2 on admission, it went up to 22.96; hemoglobin of 10.2. Sodium 140, potassium 4.1, BUN of 46, creatinine of 1.1. MEDICATION LIST: She is currently on potassium chloride, Reglan, . She has been on vancomycin, famotidine, acetaminophen. PHYSICAL EXAMINATION: GENERAL: She is currently alert, does not seem to be in acute distress. Noncommunicative. VITAL SIGNS: Stable. Afebrile since admission. HEENT: Normocephalic . NECK: Supple. No JVD. No lymphadenopathy. No thyromegaly. CHEST: Few crackles at the bases. COR: S1, S2 ABDOMEN: Soft. Bowel sounds present. No tenderness. EXTREMITIES: No edema. SKIN: No rash. The patient apparently during her stay, she had small bowel dilatation, which apparently had been getting progressively better. IMAGING: She had a CAT scan of the abdomen and pelvis on 02/02, which showed limited study with the small bowel obstruction. as mentioned above currently. IMPRESSION: Leukocytosis is getting progressively worse. I will suggest to discontinue vancomycin. Check amylase, lipase. I think this was probably small bowel obstruction clinically seems to be better. The phone number DICTATION ENDS HERE MD ÁLVARO Lobato/ENRRIQUE /[id number]
--- NOTE | 2019-02-06 08:30 | NUR ---
The pt. is in bed with her eyes open and is occasionally moaning particularly when moved. he feeding tube is patient and flushes freely. The caregiver is at the bedside. The side rails are up times 2 and positioned too the right side.
[2019-02-06] MEDS: OLOPATADINE 5 ML BTL OP SCH (08:53)
--- NOTE | 2019-02-06 08:54 | NUR ---
CM called and spoke to pt's daughter and POA Zoe Tineo [phone] and reminded her of her mom's Medicare Rights. She acknowledged understanding. Signed copy in chart. Copy left in pt's room for Farshad Tineo.
[2019-02-06] MEDS: MULTIVITAMINS/MINERALS TAB PO SCH (08:58)
[2019-02-06] MEDS: BALSAM PERU/CASTOR OIL 60 GM OINT...G. TP SCH (08:58)
[2019-02-06] MEDS: FAMOTIDINE 20 MG TAB PO SCH (08:58)
[2019-02-06] MEDS: METOPROLOL SUCCINATE 50 MG TAB XL PO SCH (08:59)
[2019-02-06] MEDS: HYDROCODONE/APAP 5MG-325MG TAB PO PRN (10:10)
--- NOTE | 2019-02-06 13:22 | NUR ---
Discontinuing skilled physical therapy services since patient is on hospice. Thank you Addendum: 02/06/19 at 1323 by Sang andujar PT Amended: Links added.
--- NOTE | 2019-02-06 14:40 | NUR ---
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 FAMILY WENT TO OFFICE AND FILLED OUT PAPER WORK.
--- NOTE | 2019-02-06 14:41 | NUR ---
[facility]
--- NOTE | 2019-02-06 15:28 | NUR ---
CLINICALS FAXED TO [facility]
[2019-02-07] VITALS: BP 156/80
[2019-02-07 04:00] VITALS: BP 156/76
[2019-02-07] MEDS: METOCLOPRAMIDE HCL 10 MG/2ML VIAL IV SCH ×2 (05:25→11:55)
[2019-02-07] MEDS: METRONIDAZOLE 500MG/NS 100ML 100 ML IV SCH ×2 (05:25→11:54)
[2019-02-07] MEDS: LEVOTHYROXINE SODIUM 50 MCG TAB PO SCH (05:25)
[2019-02-07] MEDS: IPRATROPIUM BROMIDE 0.02% 2.5 ML NEB NEB SCH ×3 (07:00→13:00)
[2019-02-07] MEDS: LEVALBUTEROL HCL SOLN NEBU 0.63 MG/3 ML NEB IH SCH ×3 (07:00→13:00)
[2019-02-07 08:00] VITALS: BP 150/77
[2019-02-07 08:30] VITALS: BP 150/77
--- NOTE | 2019-02-07 09:00 | NUR ---
Hospice transfer is pending and the pt. is to transfer when accepted.
[2019-02-07] MEDS: OLOPATADINE 5 ML BTL OP SCH (09:24)
[2019-02-07] MEDS: MULTIVITAMINS/MINERALS TAB PO SCH (09:24)
[2019-02-07] MEDS: FAMOTIDINE 20 MG TAB PO SCH (09:24)
[2019-02-07] MEDS: METOPROLOL SUCCINATE 50 MG TAB XL PO SCH (09:25)
[2019-02-07] MEDS: BALSAM PERU/CASTOR OIL 60 GM OINT...G. TP SCH (09:25)
[2019-02-07 12:00] VITALS: BP 136/68
[2019-02-07] MEDS: D5.45%NS/KCL 20MEQ 1,000 ML IV SCH (12:30)
--- NOTE | 2019-02-07 13:43 | NUR ---
SPOKE WITH SARAY AT [facility], THEY HAVE ACCEPTED THE PATIENT RTF, COMPLETED WITH PASRR PUT ON CHART AND ALL FORMS FILED IN CHART OR PUT INTO PACKET WITH RTF GIVEN TO NURSE. SHE WILL CALL REPORT, HOSPICE WILL SET UP TRANSPORTATION
[2019-02-07 16:00] VITALS: BP 135/73
--- NOTE | 2019-02-07 18:14 | NUR ---
Report has been called and I spoke with Elaina at the receiving facility and the pt. was supposed to be transferred within 2 hours and they have yet to arrive at this time.
--- NOTE | 2019-02-07 18:46 | NUR ---
The ambulance has arrived to transport the pt. to [facility]. The iv was removed and the Peg tube flushed.
--- NOTE | 2019-02-08 02:34 | Discharge Summary ---
PRIMARY CARE PHYSICIAN: Dr. Enma Fragoso. CONSULTANTS: 1. Dr. Jareth Quiroz. 2. Dr. Felisha Waller. 3. Dr. Teodoro Saenz. 4. Dr. Juaquin Mcdonald. 5. Dr. Irvin Bynum. FINAL DIAGNOSES: 1. Hospice for comfort palliative care. 2. Esophageal cancer, stage III, associated with adult failure to thrive with severe protein-calorie deficit, malnutrition. 3. Worsening diastolic dysfunction, congestive heart failure, chronically. 4. Status post leukocytosis, fever, pneumonia, and sepsis. 5. Severe medical decline. 6. PEG tube feeding. 7. Multiple chronic medical problems with progressive decline. SUMMARY: The patient is an 83-year-old female, who has been hospitalized for the past 6 months off and on. The patient progressively declined from her esophageal cancer. She has stage III cancer pending for chemotherapy, but was never strong enough for the treatment. The patient came in previously with infection, C. difficile colitis, acute renal failure, severely dehydrated with also subsequent bilateral pleural effusions, congestive heart failure. She was discharged home and subsequently came back to the hospital within a few days. She went into pulmonary edema and bilateral pleural effusions because she was unable to eat and all she does was drinking fluids. The patient does have stage III esophageal cancer, progressively declined from the cancer with severe protein-calorie deficit, malnutrition. While she is here, she developed again pleural effusion. Not able to eat, but only drinking. Subsequently, had a PEG tube placement for nutritional support. She could not tolerate the feeding small bowel obstruction and subsequently most likely aspiration with bilateral pneumonia. She became septic, increase in WBC with fever. The patient continued to worsen overall mental status with metabolic encephalopathy, more confused, more lethargic. The patient's condition seemed to be generally weakened, but more profound now where she was having difficulty to arouse. Overall, her status has significantly declined. DNR was placed and now the patient's family are agreeable to the healthcare team for hospice palliative care. [facility]. The patient will need comfort measure. Reynolds catheter is in due to urinary retention. We will continue with the Reynolds. IV fluid, PEG tube feeding gently. The patient will need palliative care and we will transfer to inpatient hospice care today when hospice is ready for the patient for comfort palliative care. MD ENID Valdez/ENRRIQUE /[id number]
== END 2019-02-07 19:13 | DRG 291 ==
LOC: ER 00:32 → ERHOLD 02:05 → MED/SURG3 10:55 → ICU 21:14 → MED/SURG2 01-28 21:05
PROVIDERS: ADMIT Internal Medicine; ATTEND Internal Medicine
PROC: 0W993ZX Drainage of Right Pleural Cavity, Percutaneous Approach, Diagnostic (ICD-10-PCS; principal; 2019-01-23)
PROC: 0DH63UZ Insertion of Feeding Device into Stomach, Percutaneous Approach (ICD-10-PCS; 2019-01-26)
PROC: 0W993ZX Drainage of Right Pleural Cavity, Percutaneous Approach, Diagnostic (ICD-10-PCS; 2019-01-28)
DX: I11.0 Hypertensive heart disease with heart failure (principal); E43 Unspecified severe protein-calorie malnutrition; J96.00 Acute respiratory failure, unspecified whether with hypoxia or hypercapnia; J69.0 Pneumonitis due to inhalation of food and vomit; R65.20 Severe sepsis without septic shock; A41.9 Sepsis, unspecified organism; G93.41 Metabolic encephalopathy; C15.9 Malignant neoplasm of esophagus, unspecified; G30.9 Alzheimer's disease, unspecified; F02.80 Dementia in other diseases classified elsewhere, unspecified severity, without behavioral disturbance, psychotic disturbance, mood disturbance, and anxiety; E87.1 Hypo-osmolality and hyponatremia; J91.8 Pleural effusion in other conditions classified elsewhere; J44.0 Chronic obstructive pulmonary disease with (acute) lower respiratory infection; J44.1 Chronic obstructive pulmonary disease with (acute) exacerbation; K56.609 Unspecified intestinal obstruction, unspecified as to partial versus complete obstruction; I50.23 Acute on chronic systolic (congestive) heart failure; E78.5 Hyperlipidemia, unspecified; I25.10 Atherosclerotic heart disease of native coronary artery without angina pectoris; Z95.0 Presence of cardiac pacemaker; D72.819 Decreased white blood cell count, unspecified; M81.0 Age-related osteoporosis without current pathological fracture; E03.9 Hypothyroidism, unspecified; M54.9 Dorsalgia, unspecified; R13.10 Dysphagia, unspecified; M06.9 Rheumatoid arthritis, unspecified; N32.81 Overactive bladder; K20.9 Esophagitis, unspecified; K29.70 Gastritis, unspecified, without bleeding; Z68.34 Body mass index [BMI] 34.0-34.9, adult; I48.0 Paroxysmal atrial fibrillation; K22.2 Esophageal obstruction; Z66 Do not resuscitate; F41.9 Anxiety disorder, unspecified; L89.159 Pressure ulcer of sacral region, unspecified stage
CPT/HCPCS: 32555; 36415; 36600; 43246; 51700; 71045; 71250; 74018; 74176; 74470; 80048; 80053; 80202; 81001; 82150; 82550; 82553; 82805; 82945; 83605; 83615; 83690; 83735; 83880; 84100; 84157; 84295; 84478; 84484; 85025; 85610; 85730; 87040; 87205; 87493; 88112; 88305; 89051; 93005; 94640; 96360; 97139; 99284; J0456; J0696; J1650; J1940; J2001; J2250; J2543; J2765; J3370; J3420; J3480; J7040; J7050